=== PATIENT | male | born 1945 | race Caucasian/White ===

== ENCOUNTER 2017-03-06 12:04 | Day surgery (SDC) | payer BC ==
[~2017-03-06 12:04] MED LIST: Buffered Lidocaine 0.9% SYRIN* 5 ML/SYR SYRINGE INTRADERM ONE; Famotidine IV* 10 MG/ML 2 ML (20 mg) IV ONE
[2017-03-06] MEDS ORDERED: Buffered Lidocaine 0.9% SYRIN* 5 ML/SYR SYRINGE ONE (12:23)
[2017-03-06] MEDS ORDERED: Naloxone* 0.4 MG/ML 1 ML VIAL IV PRN (12:52)
[2017-03-06] MEDS ORDERED: fentaNYL* 50 MCG/ML 2 ML VIAL (100 MCG VIAL) ONE (13:54)
[2017-03-06] MEDS ORDERED: Lidocaine 2% PF * 5 ML VIAL ONE (14:08)
[2017-03-06] MEDS ORDERED: Propofol* 10 MG/ML 20 ML BTL IV PUSH ONE ×2 (14:08→14:21)
[2017-03-06 15:34] VITALS: BP 135/62
--- NOTE | 2017-03-07 01:34 | PRO ---
CC: Dr. De La Paz * DATE OF PROCEDURE: 03/06/17 - [facility] PROCEDURE PERFORMED: Colonoscopy to cecal base. SURGEON: Dr. Jenna Calix. ANESTHESIA: MAC HISTORY OF PRESENT ILLNESS: Blaine is a pleasant 71-year-old male who presents today for a surveillance colonoscopy due to personal history of colon polyps last seen on colonoscopy in 2013 and family history of colon cancer. His father was diagnosed with colon cancer at the age of 61. He currently denies any gastrointestinal complaints. PRE-OP DIAGNOSES: 1. Personal history of tubular adenomatous polyps. 2. Family history of colon cancer. 3. Surveillance colonoscopy. POST-OP DIAGNOSES: 1. Large-mouthed sigmoid diverticulosis. 2. 2 mm sessile ascending colon polyp with polypectomy. 3. Two 3 mm sessile hepatic flexure polyps with polypectomy. 4. 8 mm sessile sigmoid polyp with hot snare polypectomy. 5. 4 mm sessile descending colon polyp with polypectomy. 6. Fair colonoscopy preparation, polyps less than 5 mm may have been missed on this examination. RECOMMENDATIONS: 1. Timing of repeat colonoscopy will be determined upon review of biopsy results. DESCRIPTION OF PROCEDURE: Colonoscopy was explained in detail to the patient. The risks, benefits, complications, alternatives, and possibilities of missed lesions were explained and understood. Complications included, but were not limited to reaction to anesthesia, aspiration, increased risk of bleeding and perforation. All questions were answered. The patient demonstrated understanding of the conversation, informed consent was obtained. Next, the patient was brought to roll form operator room where blood pressure, oxygen, and blood pressure monitors were applied. The patient was found to be a fit candidate for moderate anesthesia care after adequate IV sedation was achieved. A digital rectal exam was performed, which revealed a normal sphincterotome. No palpable masses were appreciated. Next, a standard adult Olympus colonoscope was inserted through the rectum, maneuvered all the way to the cecal base where the ileocecal valve and appendical orifice were identified and photographed. Next, the colonoscope was withdrawn in a fashion that allowed adequate visualization of bowel. The patient overall had a fair colonoscopy preparation. Aggressive irrigation and suctioning was performed in order to adequately visualize the mucosa. The patient's colon had normal vasculature and mucosal patterns. The cecum was normal appearing. Entry into the ascending colon revealed 2 mm sessile polyp, it was removed via jumbo cold forceps. Hemostasis was seen. Further withdrawal into the hepatic flexure revealed two 3 mm sessile polyps. These were also removed via jumbo cold forceps. Further withdrawal into the descending colon revealed a 4 mm sessile polyp. This was also removed via jumbo cold forceps. Hemostasis was seen at polypectomy site. Withdrawal into the sigmoid colon revealed an 8 mm sessile polyp. This was removed via hot snare. Hemostasis was seen at polypectomy site. Entry further into the sigmoid revealed large mouthed diverticula throughout. The rectum was normal appearing. On retroflexion, there were no gross abnormalities noted. Air was then removed from the patient. Colonoscope was removed from the patient. The patient tolerated the procedure well. There were no immediate complications. 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 Thank you, Dr. De La Paz, for allowing us to participate in the care of your patient. If you should have any further questions or concern, please do not hesitate to contact us. [id number]/[facility] #: [id number] NIDHI
== END 2017-03-06 15:54 | disposition home or self-care (01) ==
LOC: OR 12:04
PROVIDERS: ATTEND Internal Medicine Gastroenterology
DX: D12.2 Benign neoplasm of ascending colon (principal); D12.4 Benign neoplasm of descending colon; D12.5 Benign neoplasm of sigmoid colon; I25.10 Atherosclerotic heart disease of native coronary artery without angina pectoris; E66.9 Obesity, unspecified; Z86.010 Personal history of colon polyps; Z85.038 Personal history of other malignant neoplasm of large intestine; Z95.1 Presence of aortocoronary bypass graft
CPT/HCPCS: 88305; J2704; J3010

== ENCOUNTER 2018-11-02 05:07 | Emergency (ER) | payer MEDICARE, BC ==
--- OUTSIDE RECORDS SUMMARY | 2018-11-02 05:20 | XMS REPORT | Continuity of Care Document ---
:1945 External Reference #:[id number] Author Name Lis Lozada M.D. Address [address] [place] [address] Care Team Providers Name Role Phone [facility] - Cardiovascular Care Team Information Call Worker Disease Jesús De La Paz - Family Medicine Care Team Information Call Worker [phone] Vicente Pratt - Cardiovascular Disease Care Team Information Call Worker [phone] Problems Active Problems Provider Date Benign essential hypertension Jesús De La Paz M.D. Onset: 08/09/2005 Hyperlipidemia Jesús De La Paz M.D. Onset: 08/09/2005 Type 2 diabetes mellitus Jesús De La Paz M.D. Onset: 08/09/2005 Sleep apnea Jesús De La Paz M.D. Onset: 08/09/2005 Obesity Jesús De La Paz M.D. Onset: 01/08/2008 Benign prostatic hypertrophy without outflow Jesús De La Paz M.D. Onset: 06/2010 obstruction Arthralgia of the lower leg Jesús De La Paz M.D. Onset: 03/16/2011 Adult health examination Jesús De La Paz M.D. Onset: 05/26/2013 Chest pain Jesús De La Paz M.D. Onset: 05/26/2013 Arthralgia of the ankle and/or foot Jesús De La Paz M.D. Onset: 09/08/2013 Essential hypertension Jesús De La Paz M.D. Onset: 01/04/2015 Acute upper respiratory infection, Jesús De La Paz M.D. Onset: 01/04/2015 unspecified Malaise and fatigue Jesús De La Paz M.D. Onset: 05/09/2015 Hypermature cataract Jesús De La Paz M.D. 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 Onset: 07/04/2015 Liver function tests abnormal Jesús De La Paz M.D. Onset: 03/12/2016 Lyme disease Stu Rosado M.D. Onset: 04/11/2016 Nonvenomous insect bite of trunk without Stu Rosado M.D. Onset: 2016 infection Low back pain Jesús De La Paz M.D. Onset: 11/15/2017 Other hyperlipidemia Jesús De La Paz M.D. Onset: 03/17/2018 Epigastric pain Jesús De La Paz M.D. Onset: 07/11/2018 Social History Type Date Description Comments Sex Unknown Tobacco Use Start: Unknown Nonsmoker ETOH Use Social Alcohol Tobacco Use Start: Unknown Patient has never smoked Allergies, Adverse Reactions, Alerts Active Allergies Reaction Severity Comments Date NKDA 10/26/2010 Pollen 12/15/2009 Dust 12/15/2009 Medications Active Medications SIG Qnty Indications Ordering Date Provider Omeprazole 1 by mouth 30caps R10.13 Jesús Clinton 07/11/[address] every morning Melanie De La Paz for stomach as Needed Meloxicam 1 by mouth 60tabs M54.5 Raj Clinton 07/22/2017 7.5mg Tablets twice a day jonah Sawant MD Amlodipine Besylate 1 by mouth 90tabs Jesús Clinton 03/25/2017 5mg Tablets every day Melanie De La Paz Potassium Chloride Lenore ER 1 by mouth 30tabs Jesús Clinton 03/25/2017 20Meq every day Melanie De La Paz Tablets ER Hydrochlorothiazide 1 by mouth 90caps I10 Jesús Clinton 03/25/2017 12.5mg every day Melanie De La Paz Capsules Allopurinol Take 1 Tablet 30tabs M10.00 Jesús Clinton 07/04/2015 300mg Tablets By Mouth Every Janie De La PazLaura Day Glipizide ER Take 1 Tablet 90tabs Jesús T. 01/03/2009 5mg Tablets ER 24HR By Mouth Every Ana Cristina MLauraDLaura Morning For Diabetes Aspirin 1 po qd 90tabs Unknown 81mg Tablets DR Chen 1 po qd prn Unknown 10mg Tablets Metoprolol Succinate ER 1 by mouth bid Unknown 75mg Tablets ER 24HR Lisinopril 2 po qam, 1 po Unknown 20mg Tablets qhs Crestor 1 by mouth Unknown 20mg Tablets every day Metformin HCL Take 1 Tablet 180tabs Jesús T. 1000mg Tablets By Mouth Two Melanie De La Paz Times Daily Immunizations CPT Code Status Date Vaccine Reaction Lot # [id number] Given 11/20/2017 High-Dose, Influenza Virus Vacccine-fluzone 65 and older [id number] Given 11/15/2017 Pneumococcal Immunization [id number] 61699 Given 11/19/2016 Influenza Vac, Quadrivalent, [id number] [address] Given 03/12/2016 Pneumococcal Conjugate Vacc-13 [id number] 23828 Given 03/01/2011 DO Not Use Split Influenza Virus no reaction noted [id number] Vaccine 23443 Given 11/29/2000 DO Not Use Split Influenza Virus Vaccine Vital Signs Date Vital Result Comment 10/16/2018 3:44pm BP Systolic 156 mmHg BP Diastolic 86 mmHg Heart Rate 68 /min Body Temperature 97.3 F Height 70 inches 5'10" Weight 369.00 lb BMI (Body Mass Index) 52.9 kg/m2 07/11/2018 9:13am BP Systolic 146 mmHg BP Diastolic 80 mmHg Heart Rate 60 /min Body Temperature 97.9 F Respiratory Rate 18 /min Height 70 inches 5'10" Weight 374.12 lb BMI (Body Mass Index) 53.7 kg/m2 Results Test Date Facility Test Result H/L Range Note Laboratory test 07/11/2018 [facility] Hemoglobin A1c 6.6 % High 4.1- 5.7 finding (607)- - (Fma) Procedures Date Code Description Status 12/21/2017 496060743 Diabetic Retinal Eye Exam Completed 03/06/2017 [id number] Colonoscopy Completed 02/22/2017 [id number] Colonoscopy Completed 04/22/2013 [id number] Colonoscopy Completed Medical Devices Description No Information Available Encounters Type Date Location Provider Dx Diagnosis Office Visit 07/11/2018 Main Office Jesús De La Paz, I10 Essential (primary ) 9:20a M.DLaura hypertension E11.9 Type 2 diabetes mellitus without complications I25.10 Athscl heart disease of [place] coronary artery w/o ang pctrs E78.49 Other hyperlipidemia R10.13 Epigastric pain Assessments Date Code Description Provider 10/16/2018 R10.13 Epigastric pain Lis Lozada M.D. 10/16/2018 M25.561 Pain in right knee Lis Lozada M.D. 07/11/2018 I10 Essential (primary) hypertension Jesús De La Paz M.D. 07/11/2018 E11.9 Type 2 diabetes mellitus without Jesús De La Paz M.D. complications 07/11/2018 I25.10 Atherosclerotic heart disease of [place] Jesús De La Paz M.D. coronary artery with 07/11/2018 E78.49 Other hyperlipidemia Jesús De La Paz M.D. 07/11/2018 R10.13 Epigastric pain Jesús De La Paz M.D. Plan of Treatment Future Appointment(s):11/25/2018 8:20 am - Jesús De La Paz M.D. at Main Npwvfl7010/16/2018 - Lis Lozada M.D.R10.13 Epigastric painComments:refer to GI for endoscopy continue the omeprazole.M25.561 Pain in right kneeComments: refer to ortho.AllComments:Medication Management Patient Understands medications he's taking? Yes No Are there Barriersto Adherence? Yes No Has the patient been asked about herbal supplements and therapies, and OTC meds? Yes No Functional Status Description No Information Available Mental Status Description No Information Available Referrals Description No Information Available
--- OUTSIDE RECORDS SUMMARY | 2018-11-02 05:20 | XMS REPORT | Continuity of Care Document ---
:1945 External Reference #:[id number] Author Name Anam Watters M.D. (transmitted by agent of provider Yaa Whitmore) Address [address] [place] [address] Care Team Providers Name Role Phone Jesús eD La Paz MD - Family Medicine Care Team Information [place] [phone] Kaylene Rg MD - Internal Medicine Care Team Information [place] Problems Active Problems Provider Date Obesity Vicente Pratt M.D., [facility] Onset: 02/01/2016 Atherosclerotic heart disease of Vicente Pratt M.D., [facility] Onset: 2015 [place] coronary artery without angina pectoris Chronic ischemic heart disease Vicente Pratt M.D., [facility] Onset: 2015 Essential hypertension Vicente Pratt M.D., [facility] Onset: 06/22/2015 Hyperlipidemia Vicente Pratt M.D., [facility] Onset: 06/22/2015 Type 2 diabetes mellitus Vicente Pratt M.D., [facility] Onset: 06/22/[address] segment elevation myocardial Vicente Pratt M.D., [facility] Onset: 06/22/2015 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 Social History Type Date Description Comments Sex Unknown ETOH Use Drinks Alcoholic once or twice a Beverages Rarely month Tobacco Use Start: Unknown Patient has never smoked Recreational Drug Use Denies Drug Use Smoking Status Reviewed: 10/27/18 Patient has never smoked Exercise Type/Frequency Exercises regularly pt primarily focuses on walking Allergies, Adverse Reactions, Alerts Active Allergies Reaction Severity Comments Date NKDA 06/22/2015 Pollen 01/28/2017 Dust Mites 01/28/2017 Medications Active Medications SIG Qnty Indications Ordering Date Provider Hydrochlorothiazide 1 by mouth Unknown 03/06/2018 12.5mg every day Capsules Amlodipine Besylate 1 by mouth 90tabs Vicente Pratt, 10/21/2015 5mg Tablets every day M.D., [facility], [facility] Potassium Chloride ER 1 tab by mouth 90tabs Vicente Pratt, 07/19/2015 20Meq every day M.D., [facility], Tablets ER [facility] Lisinopril 2 tabs in in 270tabs Brittany Lara, 07/01/2015 20mg Tablets the morning , M.D. one tab in at night by mouth Metoprolol Succinate ER take 1 and 1/2 270tabs Brittany Lara, 50mg tabs by mouth M.D. Tablets ER 24HR twice a day Metformin HCL 1 by mouth Unknown 1000mg Tablets twice a day Glipizide XL 1 by mouth Unknown 5mg Tablets ER 24HR every day Loratadine 1 by mouth Unknown 10mg Tablets every day prn Aspirin Ec 1 by mouth Unknown 81mg Tablets DR every day Crestor 1 by mouth 90tabs Vicente Pratt, 20mg Tablets every day M.D., [facility], [facility] Allopurinol 1 by mouth Unknown 300mg Tablets every day Meloxicam take one tab Unknown 7.5mg Tablets twice daily as needed for pain, avoid other nsaids Omeprazole 1 by mouth Unknown 20mg Capsules DR every day Immunizations Description No Information Available Vital Signs Date Vital Result Comment 10/27/2018 1:57pm Height 70 inches 5'10" Weight 361.00 lb Heart Rate 64 /min BP Systolic 130 mmHg BP Diastolic 50 mmHg Respiratory Rate 14 /min Pain Level 4 BMI (Body Mass Index) 51.8 kg/m2 03/07/2018 8:16am Height 70 inches 5'10" Weight 384.00 lb Heart Rate 58 /min BP Systolic Sitting 122 mmHg BP Diastolic Sitting 80 mmHg BMI (Body Mass Index) 55.1 kg/m2 Ejection Fraction 45-50% echo 08/03/15 Results Description No Information Available Procedures Date Code Description Status 10/27/2018 42816 Inject/Drain Joint/Bursa Major W/O US Completed Medical Devices Description No Information Available Encounters Description No Information Available Assessments Date Code Description Provider 10/27/2018 M17.11 Unilateral primary osteoarthritis, right knee Anam Watters M.D. Plan of Treatment 10/27/2018 - Anam Watters M.D.M17.11 Unilateral primary osteoarthritis, right kneeNew Therapy:Physical TherapyFollow up:Follow up: As needed OK to try brace, cane, exercises Functional Status Description No Information Available Mental Status Description No Information Available Referrals Description No Information Available
--- NOTE | 2018-11-02 05:41 | ED ---
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 The pain was much worse than usual last night. He rates his pain severity a 10/10. He notes that the pain is much worse when lying down at night, deep breathing, and coughing. No alleviating factors noted. He also reports some constipation but denies any fever, vomiting, nausea, or diarrhea. Home Medications Medication Instructions Recorded Confirmed Type glipiZIDE TAB.XL* [Glucotrol Xl*] 5 mg PO QAM 04/20/13 11/02/18 History metFORMIN* [Glucophage 500 MG TAB 1,000 mg PO BID 04/20/13 11/02/18 History *] LoraTADine TAB(NF) [Claritin 10 MG 10 mg PO DAILY PRN 06/17/13 11/02/18 History TAB(NF)] Aspirin EC TAB* [Ecotrin EC Low 81 mg PO QAM 06/15/15 11/02/18 History Dose 81 MG*] Allopurinol TAB* [Zyloprim TAB*] 300 mg PO QPM 11/10/15 11/02/18 History Metoprolol Succinate XL TAB* 75 mg PO BID 11/10/15 11/02/18 History [Toprol XL TAB*] Potassium Chloride [K-Tab] 20 meq PO QAM 11/10/15 11/02/18 History amLODIPine TAB* [Norvasc TAB*] 5 mg PO QAM 11/10/15 11/02/18 History Lisinopril TAB* [Prinivil TAB 5 20 - 40 mg PO SEE INSTRUCTIONS 12/25/16 History MG*] Rosuvastatin Calcium [Crestor] 20 mg PO QAM 12/27/16 11/02/18 History Hydrochlorothiazide TAB* 12.5 mg PO DAILY 11/02/18 11/02/18 History Omeprazole 20 mg PO DAILY 11/02/18 11/02/18 History - History of Current Complaint Chief Complaint: EDAbdPain Stated Complaint: ABD PAIN PER PT Time Seen by Provider: 11/02/18 05:36 Hx Obtained From: Patient Onset/Duration: Sudden Onset, Lasting Weeks, Still Present Timing: Constant, Lasting Weeks Severity Initially: Severe Severity Currently: Severe Pain Intensity: 10 Location: Discrete At: RUQ, Discrete At: LLQ Character: Sharp Aggravating Factor(s): Deep Breaths, Other: - coughing, lying down Alleviating Factor(s): Nothing Associated Signs And Symptoms: Positive: Constipation. Negative: Fever, Nausea , Vomiting, Diarrhea - Allergies/Home Medications Allergies/Adverse Reactions: Allergies Allergy/AdvReac Type Severity Reaction Status Date / Time No Known Allergies Allergy Verified 11/02/18 05:27 Home Medications: Home Medications Hydrochlorothiazide TAB* 12.5 mg PO DAILY 11/02/18 [History Confirmed 11/02/18] Omeprazole 20 mg PO DAILY 11/02/18 [History Confirmed 11/02/18] PMH/Surg Hx/FS Hx/Imm Hx Endocrine/Hematology History: Reports: Hx Diabetes - type 2 Cardiovascular History: Reports: Hx Angina, Hx Congestive Heart Failure, Hx Hypercholesterolemia, Hx Hypertension, Other Cardiovascular Problems/Disorders - DR. PHOEN[place] FOLLOWS PATIENT Denies: Hx Coronary Artery Disease, Hx Myocardial Infarction, Hx Pacemaker/ ICD, Hx Valvular Heart Disease Respiratory History: Reports: Hx Asthma, Hx Pneumonia, Hx Seasonal Allergies, Hx Sleep Apnea Denies: Hx Chronic Obstructive Pulmonary Disease (COPD) GI History: Reports: Hx Jaundice - A TEEN, Other GI Disorders - OCCASIONAL SLIGHTLY ELEVATEDLIVER ENZYMES Musculoskeletal History: Reports: Hx Arthritis - LEFT KNEE, LEFT SHOULDER, Hx Back Problems, Hx Tendonitis - RIGHT ELBOW, LEFT SHOULDER, Other Musculoskeletal History - has gout- no attack in over 1 year Sensory History: Reports: Hx Cataracts, Hx Contacts or Glasses - glasses Denies: Hx Hearing Aid, Hx Hearing Problem, Other Sensory Impairments Opthamlomology History: Reports: Hx Cataracts, Hx Contacts or Glasses - glasses Denies: Other Sensory Impairments Neurological History: Reports: Hx Headaches - Surgical History Surgery Procedure, Year, and Place: appi-2006. bilat cataracts with IOL 2015. cardiac stent after stemi 2016. papilomas removed from eyelid both 2015 approx Hx Anesthesia Reactions: No Infectious Disease History: No Infectious Disease History: Denies: Traveled Outside the [place] in Last 30 Days - Family History Known Family History: Positive: None - reviewed & noncontributory - Social History Alcohol Use: Rare Hx Substance Use: No Substance Use Type: Reports: None Hx Tobacco Use: No Smoking Status (MU): Never Smoked Tobacco Have You Smoked in the Last Year: No Review of Systems Negative: Fever Positive: Abdominal Pain, Other - pos - constipation . Negative: Vomiting, Diarrhea, Nausea All Other Systems Reviewed And Are Negative: Yes Physical Exam - Summary Physical Exam Summary: General: Well-developed, Well-nourished male. Morbidly obese. No acute distress. HEENT: Normocephalic, Atraumatic. Eyes: Conjuctiva normal, PERRL. Ears: TMs within normal limits. Nares: (-) discharge, (-) erythema. Oropharynx: Clear, mucous membranes moist, (-) exudates. Neck: Soft, FROM, (-) lymphadenopathy, (-) thyromegaly, (-) JVD. Cardiovascular: Normal sinus rhythm, (-) murmur. Lungs: Clear to auscultation bilaterally (-) wheezes, (-) rales, (-) rhonchi. Abdomen: Soft, mild tenderness in the LUQ and right lateral abd, non-distended, (-) organomegaly, normal bowel sounds. Back: (-) CVA tenderness Extremities: No edema. Skin: Warm, dry, (-) rash. Neuro: Alert and oriented x3, no focal deficits. Psychiatric: Mood normal, affect normal. Triage Information Reviewed: Yes Vital Signs On Initial Exam: Initial Vitals Temp Pulse Resp BP Pulse Ox 97.6 F 68 18 194/107 96 11/02/18 05:08 11/02/18 05:08 11/02/18 05:08 11/02/18 05:08 11/02/18 05:08 Vital Signs Reviewed: Yes Diagnostics - Vital Signs Vital Signs Temp Pulse Resp BP Pulse Ox 11/02/18 05:08 97.6 F 68 18 194/107 96 - Laboratory Result Diagrams: 11/02/18 06:13 11/02/18 06:13 Lab Statement: Any lab studies that have been ordered have been reviewed, and results considered in the medical decision making process. 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 Test results normal except for WBC 18.7, MPV 10.6, Absolute Neuts 14.9, Absolute monos 1.0. Final Dx is abdominal pain. Pt will be a sign out to Dr. Urbina pending CT A/P and disposition. - Diagnoses Provider Diagnoses: Abdominal pain Discharge ED - Sign-Out/Discharge Documenting (check all that apply): Sign-Out Patient Signing out patient TO: Arvind Urbina Patient Received Moderate/Deep Sedation with Procedure: No - Discharge Plan Referrals: Jesús De La Paz MD [Primary Care Provider] - - Attestation Statements Document Initiated by Scribe: Yes Documenting Scribe: Lito Nobles Provider For Whom Scribe is Documenting (Include Credential): Loly Welch MD Scribe Attestation: ILito, scribed for Loly Welch MD on 11/02/18 at 0643. Scribe Documentation Reviewed: Yes Provider Attestation: The documentation as recorded by the scribeLito accurately reflects the service I personally performed and the decisions made by me, Loly Welch MD Status of Scribe Document: Viewed
[2018-11-02 06:29] LABS: ABS Basophils 0.1 10^3/ul (0-0.2); ABS Eosinophils 0.4 10^3/ul (0-0.6); ABS Lymphocytes 2.3 10^3/ul (1.0-4.8); ABS Neutrophils 14.9 10^3/ul (1.5-7.7); Eosinophil % 2.3 %; Hematocrit 43 % (42-52); Hemoglobin 14.4 g/dL (14.0-18.0); Lymphocyte % 12.3 %; Mean Corpuscular HGB Conc 34 g/dL (31-36); Mean Corpuscular Hemoglobin 30 pg (27-31); Mean Corpuscular Volume 91 fL (80-94); Mean Platelet Volume 10.6 fL (7.4-10.4); Platelet Count 247 10^3/uL (150-450); Red Blood Count 4.77 10^6 /uL (4.18-5.48); Red Cell Distribution Width 15 % (10-15); White Blood Count 18.7 10^3/uL (3.5-10.8)
[2018-11-02 06:41] LABS: Albumin 3.9 g/dL (3.2-5.2); Albumin/Globulin Ratio 1.3 (1-3); BUN/Creatinine Ratio 15.8 (8-20); EGFR African American 88.1 (>60); EGFR Non-African American 72.8 (>60); Potassium 4.2 mmol/L (3.5-5.0); Total Bilirubin 0.4 mg/dL (0.2-1.0); Total Protein 6.9 g/dL (6.4-8.9)
--- NOTE | 2018-11-02 07:16 | ED ---
Progress - Progress Note Progress Note: This pt is a sign out to Dr. Urbina from Dr. Welch at shift change 0700 11/[address] A/P and dispo. - Results/Orders Results/Orders: His CT A/P Shows the followin. Innumerable focal liver lesions and extensive retroperitoneal lymphadenopathy new compared with the 2008 exam highly suspicious for metastatic disease of unknown primary. 2. Consider ultrasound-guided fine-needle aspiration of a medical sales representative hepatic lesion for pathologic assessment. ED physician has reviewed this report. Re-Evaluation - Re-Evaluation First Eval Re-Evaluation Time: 09:31 Change: Improved Comment: Patient informed of CT scan results concerning for metastatic lesions. Patient to follow-up with oncologist tomorrow. Patient given 1 Percocet for pain here and can take Tylenol at home. Patient agreeable with discharge plan. Course/Dx - Course Course Of Treatment: This pt is a sign out to Dr. Urbina from Dr. Welch at shift change 0700 11/02/[address] A/P and dispo. - Diagnoses Provider Diagnoses: Abdominal pain, Lesion of liver - Provider Notifications Discussed Care Of Patient With: Aiden Ramirez Time Discussed With Above Provider: 09:30 Instructed by Provider To: Other - Dr. Arriaga, Oncology, stated that he will call the pt and set up an appointment for tomorrow. Discharge ED - Sign-Out/Discharge Documenting (check all that apply): Patient Departure - discharged Patient Received Moderate/Deep Sedation with Procedure: No - Discharge Plan Condition: Stable Disposition: HOME Patient Education Materials: Abdominal Pain (ED) Referrals: Jesús De La Paz MD [Primary Care Provider] - 2 Days Aiden Ramirez MD [Medical Doctor] - As Soon As Possible Additional Instructions: You were seen in the emergency department for abdominal pain. Your CT scan showed lesions on your liver and enlarged lymph nodes. The source is unclear, sometimes this can be seen with cancer. Please follow up with our oncologist, Dr. Ramirez. Please follow up with your primary care doctor in next 2-3 days and return to emergency department for worsening or concerning symptoms. It was a pleasure taking care of you today. - Billing Disposition and Condition Condition: STABLE Disposition: Home - Attestation Statements Document Initiated by Scribe: Yes Documenting Scribe: Tano Valiente Provider For Whom Scribe is Documenting (Include Credential): Arvind Urbina MD Scribe Attestation: I, Tano Valiente, scribed for Arvind Urbina MD on 11/02/18 at 0947. Scribe Documentation Reviewed: Yes Provider Attestation: The documentation as recorded by the scribTano lares accurately reflects the service I personally performed and the decisions made by , Arvind Urbina MD Status of Scribe Document: Viewed
[2018-11-02] MEDS ORDERED: Iodixanol* (CONTRAST) 320 MG/ML 100 ML SDV IV ONE (07:40)
[2018-11-02] MEDS ORDERED: oxyCODONE/Acetamin 5/325 MG* TAB PO ONE (09:33)
[2018-11-02 10:26] VITALS: BP 163/97
== END 2018-11-02 09:40 | disposition home or self-care (01) ==
LOC: ED 05:07
DX: R10.9 Unspecified abdominal pain (principal); K76.9 Liver disease, unspecified; E11.9 Type 2 diabetes mellitus without complications; I11.0 Hypertensive heart disease with heart failure; I50.9 Heart failure, unspecified; E78.00 Pure hypercholesterolemia, unspecified; J45.909 Unspecified asthma, uncomplicated; Z79.82 Long term (current) use of aspirin; Z79.84 Long term (current) use of oral hypoglycemic drugs; Z79.899 Other long term (current) drug therapy
CPT/HCPCS: 36415; 74177; 80053; 83605; 83690; 85025; 99284; A9270-GY; Q9967

== ENCOUNTER → 2018-11-19 | Day surgery (SDC) | payer MEDICARE, BC ==
[~2018-11-19] MED LIST changes: -Buffered Lidocaine 0.9% SYRIN* 5 ML/SYR SYRINGE INTRADERM ONE; +Buffered Lidocaine 1% SYRIN* 1 ML/SYRINGE INTRADERM ONE; -Famotidine IV* 10 MG/ML 2 ML (20 mg) IV ONE; +Lactated Ringers 1000 ML Bag* 1,000 ML IV SCH; +Midazolam* 1 MG/ML 5 ML VIAL (5 MG) ONE; +Propofol* 10 MG/ML 20 ML BTL ONE; +fentaNYL* 50 MCG/ML 2 ML VIAL (100 MCG VIAL) ONE
[2018-11-19 16:34] VITALS: BP 133/60
--- NOTE | 2018-11-21 23:45 | PRO ---
CC: Dr. De La Paz; Dr. Ramirez * DATE OF PROCEDURE: 11/19/18 - ENDO PROCEDURE: EGD with biopsy. REFERRING PROVIDERS: Dr. De La Paz and Dr. Ramirez. INDICATION: The patient was seen in clinic recently. He was noted to have left upper abdominal discomfort. Workup revealed innumerable liver lesions and extensive retroperitoneal lymphadenopathy. Findings consistent with metastatic disease of unknown primary. Liver biopsy results pending. MEDICATIONS GIVEN: By Anesthesia. DESCRIPTION OF PROCEDURE: Full disclosure of risks was reviewed with the patient as detailed on the consent form. The patient was placed in the left lateral decubitus position and monitored with continuous pulse oximetry, capnography, interval blood pressure monitoring, and direct observation. A bite -block was placed between the patient's teeth. An adult gastroscope was then inserted into the patient's mouth and advanced down the esophagus, into the stomach, and into the distal duodenum. Findings and interventions are described below. FINDINGS: Esophagus was a tubular structure. In the distal esophagus, from approximately 41 to 44 cm, there was an esophageal mass. This mass involved one- third to one-half of the circumference of the esophagus. This mass appeared to directly abut the GE junction. Multiple biopsies were obtained for histologic evaluation. The scope was able to advance into the stomach without any significant resistance. The gastric mucosa was examined in the forward and retroflex views. There was mild erythema in the gastric antrum. No erosions or ulcers. The scope was then advanced into the duodenum to at least the third portion. Duodenal mucosa was unremarkable in appearance. The scope was then withdrawn from the patient. The patient tolerated the procedure well and was recovered in the GI recovery area. IMPRESSION: 1. Complete upper endoscopy to the distal duodenum. 2. Distal esophageal mass. Findings consistent with an esophageal cancer. I suspect that this is the source of the metastatic disease. FOLLOWUP: 1. Await pathology. 2. The patient is scheduled to follow up with Dr. Ramirez on Saturday late afternoon. Thank you very much for this referral. [id number]/[facility] #: [id number] [facility], [place]
--- NOTE | 2018-11-22 00:11 | PRO ---
CC: Dr. De La Paz; Dr. Ramirez. * DATE OF PROCEDURE: 11/19/18 - ENDO REFERRING PROVIDERS: Dr. De La Paz and Dr. Ramirez. PROCEDURE: Colonoscopy with cold snare polypectomy x2. INDICATION: The patient recently developed left upper abdominal discomfort. Workup demonstrated enumerable liver lesions and retroperitoneal lymphadenopathy. Findings concerning for metastatic disease of unknown primary. Plan had been for both an upper and lower endoscopy to evaluate for primary source. EGD today demonstrated an esophageal mass. Last colonoscopy was in February 2017. This demonstrated 5 polyps. There was a tubulovillous adenoma, tubular adenoma, and hyperplastic polyps. . MEDICATIONS GIVEN: By Anesthesia. DESCRIPTION OF PROCEDURE: Full disclosure of risks was reviewed with the patient as detailed on the consent form. The patient was placed in the left lateral decubitus position and monitored with continuous pulse oximetry, capnography, interval blood pressure monitoring, and direct observation. After anorectal examination was performed, the adult colonoscope was inserted into the rectum and slowly advanced forward to the level of the cecum. Quality of the prep was fair. Photodocumentation of landmarks obtained. Careful inspection was made as the colonoscope was withdrawn. Retroflexion was performed in the rectum. Findings and interventions are described below. FINDINGS: Anorectal exam was unremarkable. The scope was inserted into the rectum and slowly advanced forward. The procedure was moderately challenging with some looping of colonoscope. Due to the patient's body habitus, abdominal pressure was only modestly successful. The scope was able to reach the cecum. Cecal views were moderately limited due to dark liquid with residual sediment. The scope was slowly withdrawn throughout the length of colon. There was 5 mm polyp at the hepatic flexure removed with cold snare. There was a 4 mm polyp in the transverse colon removed with cold snare. There was sigmoid diverticulosis of moderate severity. Retroflexion in the rectum revealed medium- sized internal hemorrhoids and hypertrophied anal papilla. The scope was then withdrawn from the patient. The patient tolerated the procedure well and was recovered in the GI recovery area. IMPRESSION: 1. Complete colonoscopy to the cecum. Fair to borderline prep. 2. Two small polyps removed as above. 3. Sigmoid diverticulosis. 4. Internal hemorrhoids. FOLLOWUP: 1. Await pathology. 2. Timing of repeat colonoscopy to depend on the patient's overall health. Unfortunately, he has been recently diagnosed with what appears to be metastatic esophageal cancer. We will defer plans regarding future colonoscopy for now. 3. Recommend high fiber diet given the diverticulosis. 4. Recommend conservative management for the hemorrhoids. The patient will contact the clinic if these become symptomatic for him. Thank you very much for this referral. [id number]/[facility] #: [id number] NID[facility]
== END | disposition home or self-care (01) ==
LOC: ENDO 12:44
PROVIDERS: ATTEND Internal Medicine Gastroenterology
DX: D12.3 Benign neoplasm of transverse colon (principal); C15.9 Malignant neoplasm of esophagus, unspecified; R63.4 Abnormal weight loss; R10.84 Generalized abdominal pain; E11.9 Type 2 diabetes mellitus without complications; I10 Essential (primary) hypertension; K57.30 Diverticulosis of large intestine without perforation or abscess without bleeding; K64.8 Other hemorrhoids; K62.89 Other specified diseases of anus and rectum; E66.01 Morbid (severe) obesity due to excess calories; K31.89 Other diseases of stomach and duodenum; R93.2 Abnormal findings on diagnostic imaging of liver and biliary tract; Z86.010 Personal history of colon polyps; Z80.0 Family history of malignant neoplasm of digestive organs; Z95.5 Presence of coronary angioplasty implant and graft; Z91.09 Other allergy status, other than to drugs and biological substances; Z68.43 Body mass index [BMI] 50.0-59.9, adult; Z79.82 Long term (current) use of aspirin; Z79.84 Long term (current) use of oral hypoglycemic drugs; Z79.899 Other long term (current) drug therapy
CPT/HCPCS: 88305; 88313; 88341; 88342; 88360; J2250; J2704; J3010

== ENCOUNTER 2018-12-02 09:06 | Inpatient (IN) | payer MEDICARE, BC ==
[2018-12-02] MEDS ORDERED: NS 0.9% 1000 ML** 1,000 ML IV ONE (09:39)
[2018-12-02 09:53] LABS: Hematocrit 43 % (42-52); Hemoglobin 13.8 g/dL (14.0-18.0); Mean Corpuscular HGB Conc 32 g/dL (31-36); Mean Corpuscular Hemoglobin 29 pg (27-31); Mean Corpuscular Volume 90 fL (80-94); Mean Platelet Volume 10.7 fL (7.4-10.4); Platelet Count 308 10^3/uL (150-450); Red Blood Count 4.74 10^6 /uL (4.18-5.48); Red Cell Distribution Width 16 % (10-15); White Blood Count 24.3 10^3/uL (3.5-10.8)
[2018-12-02] MEDS ORDERED: Iodixanol* (CONTRAST) 320 MG/ML 100 ML SDV IV ONE (10:08)
[2018-12-02 10:09] LABS: Albumin 3.5 g/dL (3.2-5.2); Albumin/Globulin Ratio 1.1 (1-3); BUN/Creatinine Ratio 27.8 (8-20); Calcium 10.8 mg/dL (8.6-10.3); EGFR African American 58.5 (>60); EGFR Non-African American 48.4 (>60); Globulin 3.3 g/dL (2-4); Potassium 4.6 mmol/L (3.5-5.0); Total Bilirubin 0.8 mg/dL (0.2-1.0); Total Protein 6.8 g/dL (6.4-8.9)
[2018-12-02 10:11] LABS: INR 1.21 (0.82-1.09)
[2018-12-02 10:13] LABS: Troponin I 0.08 ng/mL (<0.04)
[2018-12-02 10:18] LABS: Activated Partial Thrombo Time 33.6 seconds (26.0-38.0)
[2018-12-02 10:20] LABS: C Reactive Protein 87.71 mg/L (<8.01)
--- NOTE | 2018-12-02 10:39 | ED ---
HPI Chest Pain - HPI Summary HPI Summary: Pt is a 73 y/o M presenting to the ED with a chief complaint of chest pain. He states he came in this morning to have a PICC line placed for chemotherapy for recent diagnosis of esophageal CA with metastasis to the liver, but was sent over here due to chest pain and shortness of breath. He complains of chest pain and L-sided abd and back pain that is intermittent in severity and duration, as well as some cough. He also notes recent changes in medications, including stopping the Hydrochlorothiazide and Amlodipine, and increasing his Oxycontin dose to 20mg BID. - History of Current Complaint Chief Complaint: EDChestPainROMI Time Seen by Provider: 12/02/18 09:24 Hx Obtained From: Patient Onset/Duration: Started Hours Ago, Still Present Timing: Constant, Lasting Hours Initial Severity: Moderate Current Severity: Moderate Pain Intensity: 5 Pain Scale Used: 0-10 Numeric Chest Pain Location: Diffuse Chest Pain Radiates: No Aggravating Factor(s): Nothing Alleviating Factor(s): Nothing Associated Signs and Symptoms: Positive: Chest Pain, Shortness of Breath, Cough , Back Pain, Abdominal Pain, Other: - recent medication changes - Additional Pertinent History Primary Care Physician: [id number] - Allergy/Home Medications Allergies/Adverse Reactions: Allergies Allergy/AdvReac Type Severity Reaction Status Date / Time No Known Allergies Allergy Verified 11/19/18 13:04 Home Medications: Home Medications Lisinopril TAB* [Prinivil TAB*] 40 mg PO DAILY 12/02/18 [History Confirmed 12/02] Lisinopril [Prinivil TAB 20 mg] 20 mg PO BEDTIME 12/02/18 [History Confirmed ] Potassium Chloride 20 meq PO DAILY 12/02/18 [History Confirmed 12/02/18] PMH/Surg Hx/FS Hx/Imm Hx Previously Healthy: Yes Endocrine/Hematology History: Reports: Hx Diabetes - type 2 Cardiovascular History: Reports: Hx Angina, Hx Congestive Heart Failure, Hx Hypercholesterolemia, Hx Hypertension, Other Cardiovascular Problems/Disorders - DR. PHOENIX FOLLOWS PATIENT Denies: Hx Coronary Artery Disease, Hx Myocardial Infarction, Hx Pacemaker/ ICD, Hx Valvular Heart Disease Respiratory History: Reports: Hx Asthma, Hx Pneumonia, Hx Seasonal Allergies, Hx Sleep Apnea Denies: Hx Chronic Obstructive Pulmonary Disease (COPD), Other Respiratory Problems/Disorders GI History: Reports: Hx Jaundice - A TEEN, Other GI Disorders - OCCASIONAL SLIGHTLY ELEVATEDLIVER ENZYMES History: Denies: Hx Kidney Stones, Hx Renal Disease, Other Problems/Disorders Musculoskeletal History: Reports: Hx Arthritis - LEFT KNEE, LEFT SHOULDER, Hx Back Problems, Hx Tendonitis - RIGHT ELBOW, LEFT SHOULDER, Other Musculoskeletal History - has gout- no attack in over 1 year Sensory History: Reports: Hx Cataracts, Hx Contacts or Glasses - glasses Denies: Hx Hearing Aid, Hx Hearing Problem, Other Sensory Impairments Opthamlomology History: Reports: Hx Cataracts, Hx Contacts or Glasses - glasses Denies: Other Sensory Impairments Neurological History: Reports: Hx Headaches Denies: Other Neuro Impairments/Disorders - Cancer History Cancer Type, Location and Year: esophageal - Surgical History Surgery Procedure, Year, and Place: appy-2006. bilat cataracts with IOL 2015. cardiac stent after stemi 2015. papilomas removed from eyelid both 2014 approx Hx Anesthesia Reactions: No Infectious Disease History: No Infectious Disease History: Denies: Traveled Outside the [place] in Last 30 Days - Family History Known Family History: Negative: Cardiac Disease, Diabetes - Social History Alcohol Use: Rare Hx Substance Use: No Substance Use Type: Reports: None Hx Tobacco Use: No Smoking Status (MU): Never Smoked Tobacco Have You Smoked in the Last Year: No Review of Systems Positive: Chest Pain Positive: Shortness Of Breath, Cough Positive: Abdominal Pain Positive: Myalgia - back pain All Other Systems Reviewed And Are Negative: Yes Physical Exam - Summary Physical Exam Summary: VITAL SIGNS: Reviewed. Pt is hypotensive and tachycardic. GENERAL: Patient is a obese male who is lying comfortable in the stretcher and mentating well. Patient is not in any acute respiratory distress. HEAD AND FACE: No signs of trauma. No ecchymosis, hematomas or skull depressions. No sinus tenderness. EYES: PERRLA, EOMI x 2, No injected conjunctiva, no nystagmus. EARS: Hearing grossly intact. Ear canals and tympanic membranes are within normal limits. MOUTH: Oropharynx within normal limits. NECK: Supple, trachea is midline, no adenopathy, no JVD, no carotid bruit, no c- spine tenderness, neck with full ROM. CHEST: Symmetric, no tenderness at palpation. LUNGS: Decreased breath sounds. No wheezing or crackles. CVS: Tachycardic rate and regular rhythm, S1 and S2 present, no murmurs or gallops appreciated. ABDOMEN: Soft, non-tender. No signs of distention. No rebound, no guarding, and no masses palpated. Bowel sounds are normal. EXTREMITIES: FROM in all major joints, no edema, no cyanosis or clubbing. NEURO: Alert and oriented x 3. No acute neurological deficits. Speech is normal and follows commands. SKIN: Dry and warm. Triage Information Reviewed: Yes Vital Signs On Initial Exam: Initial Vitals Temp Pulse Resp BP Pulse Ox 97.9 F 106 30 83/57 93 12/02/18 09:14 12/02/18 09:14 12/02/18 09:14 12/02/18 09:14 12/02/18 09:14 Vital Signs Reviewed: Yes Procedures - Sedation Patient Received Moderate/Deep Sedation with Procedure: No Diagnostics - Vital Signs Vital Signs Temp Pulse Resp BP Pulse Ox 12/02/18 10:24 106 26 109/90 94 12/02/18 10:21 111 27 127/106 90 12/02/18 10:20 109 20 90 12/02/18 09:32 108 29 88/71 95 12/02/18 09:30 108 20 96 12/02/18 09:14 97.9 F 106 30 83/57 93 - Laboratory Lab Results: Lab Results 12/02/18 12/02/18 12/02/18 Range/Units 09:30 09:30 09:30 WBC 24.3 H (3.5-10.8) 10^3/uL RBC 4.74 (4.18-5.48) 10^6 /uL Hgb 13.8 L (14.0-18.0) g/dL Hct 43 (42-52) % MCV 90 (80-94) fL MCH 29 (27-31) pg MCHC 32 (31-36) g/dL RDW 16 H (10-15) % Plt Count 308 (150-450) 10^3/uL MPV 10.7 H (7.4-10.4) fL Neut % (Auto) Pending Lymph % (Auto) Pending Oliver % (Auto) Pending Eos % (Auto) Pending Baso % (Auto) Pending Absolute Neuts (auto) Pending Absolute Lymphs (auto) Pending Absolute Monos (auto) Pending Absolute Eos (auto) Pending Absolute Basos (auto) Pending Absolute Nucleated RBC Pending Nucleated RBC % Pending INR (Anticoag Therapy) 1.21 H (0.82-1.09) APTT (26.0-38.0) seconds Fibrinogen D-Dimer, Quantitative (Less Than 230) ng/mL Patient Temperature ABG pH (7.35-7.45) ABG pH (Temp Correct) ABG pCO2 (35-45) mmHg ABG pCO2 (Temp Corrct ABG pO2 (80-100) mmHg ABG pO2 (Temp Correct ABG HCO3 (19-31) mmol/L ABG O2 Saturation (94.0-98.0) % ABG Base Excess (-2.0-2.0) mmol/L Respiration Rate O2 Delivery Device Ventilator Type Vent Mode FiO2 Inspiratory Time PEEP Pressure Support Pressure Control EPAP IPAP BiPAP Sodium 138 (135-145) mmol/L Potassium 4.6 (3.5-5.0) mmol/L Chloride 106 (101-111) mmol/L Carbon Dioxide 22 (22-32) mmol/L Anion Gap 10 (2-11) mmol/L BUN 40 H (6-24) mg/dL Creatinine 1.44 H (0.67-1.17) mg/dL Est GFR ( Amer) 58.5 (>60) Est GFR (Non-Af Amer) 48.4 (>60) BUN/Creatinine Ratio 27.8 H (8-20) Glucose 160 H (70-100) mg/dL Lactic Acid (0.5-2.0) mmol/L Calcium 10.8 H (8.6-10.3) mg/dL Total Bilirubin 0.80 (0.2-1.0) mg/dL AST 42 H (13-39) U/L ALT 36 (7-52) U/L Alkaline Phosphatase 286 H (34-104) U/L Total Creatine Kinase 47 (10-223) U/L Troponin I 0.08 H* (<0.04) ng/mL C-Reactive Protein 87.71 H (<8.01) mg/L B-Natriuretic Peptide (<=100) pg/mL Total Protein 6.8 (6.4-8.9) g/dL Albumin 3.5 (3.2-5.2) g/dL Globulin 3.3 (2-4) g/dL Albumin/Globulin Ratio 1.1 (1-3) Blood Type Antibody Screen 12/02/18 12/02/18 12/02/18 Range/Units 09:30 09:30 09:30 WBC (3.5-10.8) 10^3/uL RBC (4.18-5.48) 10^6 /uL Hgb (14.0-18.0) g/dL Hct (42-52) % MCV (80-94) fL MCH (27-31) pg MCHC (31-36) g/dL RDW (10-15) % Plt Count (150-450) 10^3/uL MPV (7.4-10.4) fL Neut % (Auto) Lymph % (Auto) Oliver % (Auto) Eos % (Auto) Baso % (Auto) Absolute Neuts (auto) Absolute Lymphs (auto) Absolute Monos (auto) Absolute Eos (auto) Absolute Basos (auto) Absolute Nucleated RBC Nucleated RBC % INR (Anticoag Therapy) (0.82-1.09) APTT 33.6 (26.0-38.0) seconds Fibrinogen Pending D-Dimer, Quantitative (Less Than 230) ng/mL Patient Temperature ABG pH (7.35-7.45) ABG pH (Temp Correct) ABG pCO2 (35-45) mmHg ABG pCO2 (Temp Corrct ABG pO2 (80-100) mmHg ABG pO2 (Temp Correct ABG HCO3 (19-31) mmol/L ABG O2 Saturation (94.0-98.0) % ABG Base Excess (-2.0-2.0) mmol/L Respiration Rate O2 Delivery Device Ventilator Type Vent Mode FiO2 Inspiratory Time PEEP Pressure Support Pressure Control EPAP IPAP BiPAP Sodium (135-145) mmol/L Potassium (3.5-5.0) mmol/L Chloride (101-111) mmol/L Carbon Dioxide (22-32) mmol/L Anion Gap (2-11) mmol/L BUN (6-24) mg/dL Creatinine (0.67-1.17) mg/dL Est GFR ( Amer) (>60) Est GFR (Non-Af Amer) (>60) BUN/Creatinine Ratio (8-20) Glucose (70-100) mg/dL Lactic Acid 2.5 H* (0.5-2.0) mmol/L Calcium (8.6-10.3) mg/dL Total Bilirubin (0.2-1.0) mg/dL AST (13-39) U/L ALT (7-52) U/L Alkaline Phosphatase (34-104) U/L Total Creatine Kinase (10-223) U/L Troponin I (<0.04) ng/mL C-Reactive Protein (<8.01) mg/L B-Natriuretic Peptide 528 H (<=100) pg/mL Total Protein (6.4-8.9) g/dL Albumin (3.2-5.2) g/dL Globulin (2-4) g/dL Albumin/Globulin Ratio (1-3) Blood Type Antibody Screen 12/02/18 12/02/18 12/02/18 Range/Units 09:30 09:30 09:40 WBC (3.5-10.8) 10^3/uL RBC (4.18-5.48) 10^6 /uL Hgb (14.0-18.0) g/dL Hct (42-52) % MCV (80-94) fL MCH (27-31) pg MCHC (31-36) g/dL RDW (10-15) % Plt Count (150-450) 10^3/uL MPV (7.4-10.4) fL Neut % (Auto) Lymph % (Auto) Oliver % (Auto) Eos % (Auto) Baso % (Auto) Absolute Neuts (auto) Absolute Lymphs (auto) Absolute Monos (auto) Absolute Eos (auto) Absolute Basos (auto) Absolute Nucleated RBC Nucleated RBC % INR (Anticoag Therapy) (0.82-1.09) APTT (26.0-38.0) seconds Fibrinogen D-Dimer, Quantitative > 1050 H (Less Than 230) ng/mL Patient Temperature Not Reportable ABG pH 7.43 (7.35-7.45) ABG pH (Temp Correct) Not Reportable ABG pCO2 25 L (35-45) mmHg ABG pCO2 (Temp Corrct Not Reportable ABG pO2 69 L (80-100) mmHg ABG pO2 (Temp Correct Not Reportable ABG HCO3 20.1 (19-31) mmol/L ABG O2 Saturation 94.9 (94.0-98.0) % ABG Base Excess -6.0 L (-2.0-2.0) mmol/L Respiration Rate Not Reportable O2 Delivery Device nasal cannula 4lpm Ventilator Type Not Reportable Vent Mode Not Reportable FiO2 Not Reportable Inspiratory Time Not Reportable PEEP Not Reportable Pressure Support Not Reportable Pressure Control Not Reportable EPAP Not Reportable IPAP Not Reportable BiPAP Not Reportable Sodium (135-145) mmol/L Potassium (3.5-5.0) mmol/L Chloride (101-111) mmol/L Carbon Dioxide (22-32) mmol/L Anion Gap (2-11) mmol/L BUN (6-24) mg/dL Creatinine (0.67-1.17) mg/dL Est GFR ( Amer) (>60) Est GFR (Non-Af Amer) (>60) BUN/Creatinine Ratio (8-20) Glucose (70-100) mg/dL Lactic Acid (0.5-2.0) mmol/L Calcium (8.6-10.3) mg/dL Total Bilirubin (0.2-1.0) mg/dL AST (13-39) U/L ALT (7-52) U/L Alkaline Phosphatase (34-104) U/L Total Creatine Kinase (10-223) U/L Troponin I (<0.04) ng/mL C-Reactive Protein (<8.01) mg/L B-Natriuretic Peptide (<=100) pg/mL Total Protein (6.4-8.9) g/dL Albumin (3.2-5.2) g/dL Globulin (2-4) g/dL Albumin/Globulin Ratio (1-3) Blood Type A Positive Antibody Screen Pending Result Diagrams: 12/02/18 09:30 12/02/18 09:30 Lab Statement: Any lab studies that have been ordered have been reviewed, and results considered in the medical decision making process. - Radiology CXR Radiology Interpretation Completed By: Radiologist Summary of Radiographic Findings: 1. No new airspace opacification. 2. Known mediastinal and right perihilar lymphadenopathy (better characterized by recent chest CT). ED physician has reviewed this report. Lung VQ scan Radiology Interpretation Completed By: Radiologist Summary of Radiographic Findings: Multiple segmental and subsegmental perfusion defects consistent with pulmonary embolus. Limited study due to lack of ventilation. ED physician has reviewed this report. - CT CT a/p CT Interpretation Completed By: Radiologist Summary of CT Findings: There is progressively enlarging lesions in the liver consistent with progressive metastatic disease. Retroperitoneal adenopathy is similar to that seen on November 02, 2018. Perinephric infiltration of FAT of uncertain etiology. ED physician has reviewed this report. - EKG 0909 Cardiac Rate: Tachycardia - 108bpm EKG Rhythm: Sinus Tachycardia ST Segment: Normal Ectopy: None EKG Comparison: No Significant Change Summary of EKG Findings: EKG at 0909 shows sinus tachycardia at 108bpm with RBBB. Similar to 06/18/15. ED physician has reviewed and interpreted this report. Chest Pain Course/Dx - Course Assessment/Plan: This patient is a 73-year-old male who presents to the emergency department with a chief complaint of having cough, left-sided abdominal pain and shortness of breath. Lab results significant for WBCs of 24.3, left shift with 20.7, INR is 1.21, fibrinogen is 475, d-dimer is more than 1050, BUN is 40, creatinine 1.44, glucose 160, lactic acid is 2.5, calcium 10.8, AST 42, alkaline phosphatase 296, troponin 0.08, CRP is 87.7 and BMP for 528. Chest x-ray impression: No new opacification. Known mediastinal and right perihilar lymphadenopathy. Abdominopelvic CT impression: That is progressively enlarging lesions in the liver consistent with progressive metastatic disease. Retroperitoneal adenopathy is similar to that seen on November 02, 2018. Initially , the patient was given IV fluids since he was hypotensive, and the patient was placed in a nasal cannula oxygen 4 L since the patient was hypoxic. Since the patient was hypoxic, tachycardic or hypotensive with an increased troponin and d-dimer I ordered a VQ scan which shows that the patient has pulmonary emboli. Therefore the patient was placed in Lovenox. At this point I discussed my physical exam and findings with Dr. Scott and he accepted the patient for admission. Patient is hemodynamically stable alert and oriented 3. - Diagnoses Provider Diagnoses: Pulmonary emboli, Syncope Discharge ED - Sign-Out/Discharge Documenting (check all that apply): Patient Departure - Discharge Plan Condition: Stable Disposition: ADMITTED TO [facility] - Billing Disposition and Condition Condition: STABLE Disposition: Admitted to [facility] - Attestation Statements Document Initiated by Candy: Yes Documenting Scribe: Carie Rubio Provider For Whom Candy is Documenting (Include Credential): Carlos Nolasco MD. Scribe Attestation: ICarie, scribed for Carlos Nolasco MD. on 12/02/18 at 1850. Scribe Documentation Reviewed: Yes Provider Attestation: The documentation as recorded by the Carie dietz accurately reflects the service I personally performed and the decisions made by me, Carlos Nolasco MD. Status of Scribe Document: Viewed Consult Consult: [id number] - I spoke with Dr. Scott who accepts the pt for admission to [facility].
--- OUTSIDE RECORDS SUMMARY | 2018-12-02 10:45 | XMS REPORT | Continuity of Care Document ---
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 Problems Active Problems Provider Date Diabetes mellitus Lebron Sprague MD Onset: 03/27/2016 Stented coronary artery Lebron Sprague MD Onset: 03/27/2016 Type 2 diabetes mellitus Sridevi Marmolejo PA-C Onset: 11/05/2018 Essential hypertension Sridevi Marmolejo PA-C Onset: 11/05/2018 Abnormal findings diagnostic imaging of Sridevi Marmolejo PA-C Onset: liver+biliary tract Family history of malignant neoplasm of Sridevi Marmolejo PA-C Onset: gastrointestinal tract History of polyp of colon Sridevi Marmolejo PA-C Onset: 11/05/2018 Weight decreased Sridevi Marmolejo PA-C Onset: 11/05/2018 Generalized abdominal pain Sridevi Marmolejo PA-C Onset: 11/05/2018 Social History Type Date Description Comments Sex Unknown Tobacco Use Start: Unknown Patient has never smoked Smoking Status Reviewed: 11/05/18 Patient has never smoked Allergies, Adverse Reactions, Alerts Active Allergies Reaction Severity Comments Date NKDA 03/27/2016 Dust 10/17/2018 Pollen 10/17/2018 Medications Active Medications SIG Qnty Indications Ordering Date Provider Peg 3350/Electrolytes use as directed 4000ml R10.84 July 11/05/2018 240gm MD Daniela Solution Rec Omeprazole 1 by mouth 30caps R10.13 Jesús De La Paz, 07/11/2018 20mg Capsules every morning for stomach as Needed Amlodipine Besylate 1 by mouth 90tabs Jesús De La Paz, 03/25/2017 5mg Tablets every day Potassium Chloride Lenore ER 1 by mouth 30tabs Jesús De La Paz, 03/25/2017 20Meq every day MD Tablets ER Hydrochlorothiazide 1 by mouth 90caps I10 Jesús De La Paz, 03/25/2017 12.5mg every day MD Capsules Allopurinol Take 1 Tablet 30tabs M10.00 Jesús De La Paz, 07/04/2015 300mg Tablets By Mouth Every MD Day Glipizide ER Take 1 Tablet 90tabs Jesús De La Paz, 01/03/2009 5mg Tablets ER 24HR By Mouth Every MD Morning For Diabetes Metformin HCL bid Jesús De La Paz, 1000mg Tablets Metoprolol Succinate ER Vicente Pratt, 75mg MD Tablets ER 24HR Lisinopril Vicente Pratt, 20mg Tablets Rosuvastatin Calcium Vicente Pratt, 20mg Tablets Aspirin 1 po qd 90tabs Unknown 81mg Tablets Claritin 1 po qd prn Unknown 10mg Tablets Immunizations Description No Information Available Vital Signs Date Vital Result Comment 11/05/2018 8:16am Height 70 inches 5'10" Weight 352.00 lb BP Systolic 195 mmHg BP Diastolic 94 mmHg Heart Rate 61 /min BMI (Body Mass Index) 50.5 kg/m2 03/27/2016 1:58pm Height 70 inches 5'10" Weight 380.00 lb week ago at another DrLaura-our scale won't weigh BP Systolic 122 mmHg over 350 BP Diastolic 74 mmHg over 350 Heart Rate 60 /min BMI (Body Mass Index) 54.5 kg/m2 Results Description No Information Available Procedures Description No Information Available Medical Devices Description No Information Available Encounters Description No Information Available Assessments Date Code Description Provider 11/05/2018 R10.84 Generalized abdominal pain Sridevi Marmolejo PA-C 11/05/2018 R63.4 Abnormal weight loss Sridevi Marmolejo PA-C 11/05/2018 Z86.010 Personal history of colonic polyps Sridevi Marmolejo PA-C 11/05/2018 Z80.0 Family history of malignant neoplasm of Sridevi Marmolejo PA-C digestive organs 11/05/2018 R93.2 Abnormal findings on diagnostic imaging Sridevi Marmolejo PA-C of liver and biliary tract Plan of Treatment Future Appointment(s):11/19/2018 1:00 pm - July Suarez MD at [facility]11/05/2018 - JORGE L MontgomeryCR10.84 Generalized abdominal painNew Medication:Peg 3350/Electrolytes 240 gm - use as eebhhabdX92.4 Abnormal weight lossZ86.010 Personal history of colonic edicptL53.0 Family history of malignant neoplasm of digestive esvsgjL42.2 Abnormal findings on diagnostic imaging of liver and biliary tract Functional Status Description No Information Available Mental Status Description No Information Available Referrals Description No Information Available
--- OUTSIDE RECORDS SUMMARY | 2018-12-02 10:45 | XMS REPORT | Continuity of Care Document ---
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 [phone] Problems Active Problems Provider Date Diabetes mellitus [...] Weight 380.00 lb week ago at another Dr.-our scale won't weigh BP Systolic 122 mmHg over 350 BP Diastolic 74 mmHg over 350 Heart Rate 60 /min BMI (Body Mass Index) 54.5 kg/m2 Results Test Date Facility Test Result H/L Range Note Laboratory test 11/19/2018 [facility] [place] mg/dL High 70-100 1 finding Glucose Xray 11/02/2018 [facility], Abd & <pending> Pelvis W/ Contrast 1 Tail Edger: [id number] Procedures Description No Information Available Medical Devices Description No Information Available Encounters Type Date Location Provider Dx Diagnosis Office Visit 11/05/2018 [facility] Sridevi Lopez R10.84 Generalized 8:30a [facility] abdominal pain CARLOS-C R63.4 Abnormal weight loss Z86.010 Personal history of colonic polyps Z80.0 Family history of malignant neoplasm of digestive organs R93.2 Abnormal findings on dx imaging of liver and biliary tract Assessments Date Code Description Provider 11/05/2018 R10.84 Generalized abdominal pain Sridevi Marmolejo PA-C 11/05/2018 R63.4 Abnormal weight loss Sridevi Marmolejo PA-C 11/05/2018 Z86.010 Personal history of colonic polyps Sridevi Marmolejo PA-C 11/05/2018 Z80.0 Family history of malignant neoplasm of Sridevi Marmolejo PA-C digestive organs 11/05/2018 R93.2 Abnormal findings on diagnostic imaging Sridevi Marmolejo PA-C of liver and biliary tract Plan of Treatment 11/05/2018 - JORGE L MontgomeryCR10.84 Generalized abdominal painNew Medication:Peg 3350/Electrolytes 240 gm - use as bqvjztdxS88.4 Abnormal weight lossZ86.010 Personal history of colonic hxxpydG99.0 Family history of malignant neoplasm of digestive zrbooiB59.2 Abnormal findings on diagnostic imaging of liver and biliary tract Functional Status Description No Information Available Mental Status Description No Information Available Referrals Description No Information Available
[2018-12-02 11:00] LABS: ABS Eosinophils 0.1 10^3/ul (0-0.6); ABS Lymphocytes 1.9 10^3/ul (1.0-4.8); ABS Monocytes 1.5 10^3/ul (0-0.8); ABS Neutrophils 20.7 10^3/ul (1.5-7.7); Eosinophil % 0.3 %; Lymphocyte % 7.8 %
[2018-12-02 11:02] LABS: Fibrinogen 475.5 mg/dL (110.8-404.3)
[2018-12-02 12:31] LABS: Urine Appearance Clear; Urine Bilirubin Negative (Negative); Urine Blood Negative (Negative); Urine Color Yellow; Urine Glucose Negative (Negative); Urine Ketones Negative (Negative); Urine Nitrite Negative (Negative); Urine Protein Negative (Negative); Urine Specific Gravity > 1.060 (1.010-1.030); Urine Urobilinogen Positive (Negative)
[2018-12-02 13:03] LABS: Troponin I 0.08 ng/mL (<0.04)
[2018-12-02] MEDS ORDERED: Enoxaparin(*) 150 MG/ML 1 ML SYRINGE SUBCUT ONE (14:00)
[2018-12-02] MEDS ORDERED: Morphine 4 MG/ML VIAL (1 ml) 4 MG/ML VIAL IV ONE (15:17)
[2018-12-02] MEDS ORDERED: Ondansetron INJ* 2 MG/ML VIAL IV PRN (15:37)
[2018-12-02] MEDS ORDERED: Acetaminophen TAB* 325 MG PO PRN (15:37)
[2018-12-02] MEDS ORDERED: Dextrose 50% VIAL 50 ml IV PUSH PRN (15:44)
[2018-12-02] MEDS ORDERED: NS 0.9% 1000 ML** 1,000 ML IV SCH (15:45)
[2018-12-02 16:02] LABS: Troponin I 0.13 ng/mL (<0.04)
[2018-12-02] MEDS ORDERED: Perflutren Lipid Microsphere* 3 ML VIAL ONE (16:28)
[2018-12-02] MEDS: Insulin LISPRO* 1 UNITS UNIT SUBCUT SCH ×2 (17:25→21:10)
--- NOTE | 2018-12-02 17:44 | ECHO ---
*[facility]* [place] [address] Fax #: [phone] Transthoracic Echocardiogram Patient: Blaine Lazar : 1945 Study Date: 12/02/2018 Age: 73 Gender: M HR: 91 bpm Height: 68 in /172.7 cm BSA: 2.59 m^2 Weight: 349.3 lb /158.8 kg BMI: 53.2 kg/m^2 *Inspector Advanced Composite: Livier Bejarano [facility] *Referring Physician: * Dylon Romero *Reading Physician: * Skinny Lo MD Indications: Pulmonary Embolism. History: Esophageal cancer with liver metastasis. Coronary artery disease. Congestive heart failure. PMH: Myocardial infarction. Risk factors: Hypertension. Diabetes mellitus. Morbidly obese. Dyslipidemia. Labs, prior tests, procedures, and surgery: Catheterization. There was a stenosis which was treated with a stent. Conclusions Summary: - Left ventricle: Systolic function is normal. The estimated ejection fraction is 55-60%. Although no diagnostic regional wall motion abnormality is identified, this possibility cannot be completely excluded on the basis of this study. - Right ventricle: The cavity size is moderately to severely dilated. Systolic function is mildly to moderately reduced. - Ventricular septum: There is septal flattening of the interventricular septum consistent with RV volume or pressure overload. - Mitral valve: There is no significant regurgitation. - Aortic valve: There is no evidence of stenosis. There is no significant regurgitation. - Tricuspid valve: There is mild regurgitation. - Pericardium, extracardiac: There is no significant pericardial effusion. - Pulmonary arteries: Systolic pressure is moderately to severely increased. The peak pressure during systole by Doppler is 53.0 mm Hg. - Compared to study of 08/03/15, the left ventricle function has improved. The right ventricle dilation and dysfunction is new. Study data: Transthoracic echocardiogram. Procedure: Transthoracic echocardiography was performed. Image quality was suboptimal. Intravenous Definity , 3 mlswas administered. Complete 2D, spectral Doppler, and color flow Doppler. Location: Emergency department. Patient status: Inpatient. Patient room number: 15. Rhythm: Normal sinus rhythm. Findings Left ventricle: The cavity size is mildly reduced. Wall thickness is moderately increased. Systolic function is normal. The estimated ejection fraction is 55-60%. Although no diagnostic regional wall motion abnormality is identified, this possibility cannot be completely excluded on the basis of this study. There is no consistent Doppler evidence of clinically significant diastolic dysfunction. Right ventricle: The cavity size is moderately to severely dilated. Systolic function is mildly to moderately reduced. Ventricular septum: There is septal flattening of the interventricular septum consistent with RV volume or pressure overload. Left atrium: The atrium is normal in size. Right atrium: The atrium is moderately to severely dilated. Mitral valve: The leaflets are normal thickness. There is no evidence of stenosis. There is no significant regurgitation. Aortic valve: The valve is probably trileaflet. The leaflets are mildly thickened. There is no evidence of stenosis. There is no significant regurgitation. Tricuspid valve: The leaflets are normal thickness. There is no evidence of stenosis. There is mild regurgitation. Pulmonic valve: Not well visualized. The leaflets are normal thickness. There is no significant regurgitation. Aorta: The aortic root appears normal. The aortic arch appears normal. Pericardium: There is no significant pericardial effusion. Pulmonary arteries: Not well visualized. Systolic pressure is moderately to severely increased. Systemic veins: Inferior vena cava: Not well visualized. Measurements Left ventricle Value Ref Aortic valve Value Ref CYNDIE, LAX (L) 3.6 cm 4.2 - Zach diam, ED 2.3 cm ----- 5.8 Peak v, S 1.23 m/sec ----- ESD, LAX 2.8 cm 2.5 - VTI, S 20.1 cm ----- 4.0 Mean grad, S 4.0 mm Hg ----- FS, LAX (L) 21 % 25 - 43 Peak grad, S 6.0 mm Hg ----- PW, ED, LAX (H) 1.5 cm 0.6 - 1.0 Mitral valve Value Ref E', lat zach, TDI (L) 4.9 cm/sec >=10.0 Peak E 0.4 m/sec --- -- E/e', lat zach, TDI 8 -------- Peak A 0.57 m/sec ----- E', med zach, TDI 8.3 cm/sec >=7.0 Decel time 82 ms --- -- E/e', med zach, TDI 5 -------- Peak E/A ratio 0.7 ----- E', avg, TDI 6.6 cm/sec -------- E/e', avg, TDI 6 <=14 Pulmonic valve Value Ref Peak v, S 0.43 m/sec ----- LVOT Value Ref Peak grad, S 1.0 mm Hg ----- Peak kalyn, S 0.72 m/sec -------- Mean grad, S 1 mm Hg -------- Tricuspid valve Value Ref TR peak v (H) 2.9 m/sec <=2.8 Ventricular septum Value Ref Peak RV-RA grad, S 34 mm Hg ----- IVS, ED (H) 1.6 cm 0.6 - 1.0 Aortic root Value Ref Root diam 3.4 cm <4.6 Right ventricle Value Ref CYNDIE, LAX 5.1 cm -------- Aortic arch Value Ref CYNDIE minor ax, A4C (H) 5.6 cm 1.9 - Arch diam 3.0 cm ----- mid 3.5 Pressure, S 54 mm Hg -------- Decending aorta Value Ref Chi peak kalyn 0.62 m/sec ----- Left atrium Value Ref ML dim, A4C 3.6 cm -------- Pulmonary artery Value Ref SI dim, A4C 4.8 cm -------- Pressure, S 53.0 mm Hg ----- Vol/bsa, ES, A/L 27 ml/m^2 16 - 34 Right atrium Value Ref SI dim, ES (H) 6.1 cm 3.4 - 5.3 ML dim, ES, A4C (H) 5.4 cm 2.6 - 4.4 Estimated RAP 20 mm Hg -------- Legend: (L) and (H) wili values outside specified reference range. Prepared and electronically signed by Skinny Lo MD 12/02/2018 17:43
[2018-12-02] MEDS: Allopurinol TAB* 300 MG PO SCH (17:59)
[2018-12-02] MEDS: oxyCODONE SR TAB(*) 20 MG TAB.SR PO SCH (21:10)
[2018-12-03] MEDS: Enoxaparin(*) 150 MG/ML 1 ML SYRINGE SUBCUT SCH ×2 (02:36→14:30)
[2018-12-03 05:27] LABS: ABS Basophils 0.1 10^3/ul (0-0.2); ABS Eosinophils 0.2 10^3/ul (0-0.6); ABS Lymphocytes 2.1 10^3/ul (1.0-4.8); ABS Monocytes 1.4 10^3/ul (0-0.8); ABS Neutrophils 15.6 10^3/ul (1.5-7.7); Eosinophil % 1.3 %; Hematocrit 38 % (42-52); Lymphocyte % 10.6 %; Mean Corpuscular HGB Conc 32 g/dL (31-36); Mean Corpuscular Hemoglobin 29 pg (27-31); Mean Corpuscular Volume 91 fL (80-94); Mean Platelet Volume 10.9 fL (7.4-10.4); Nucleated Red Blood Cells % 0.1; Platelet Count 234 10^3/uL (150-450); Red Blood Count 4.14 10^6 /uL (4.18-5.48); Red Cell Distribution Width 16 % (10-15); White Blood Count 19.4 10^3/uL (3.5-10.8)
[2018-12-03 05:42] LABS: Albumin/Globulin Ratio 1.1 (1-3); BUN/Creatinine Ratio 29.6 (8-20); EGFR African American 81.6 (>60); EGFR Non-African American 67.4 (>60); Globulin 2.8 g/dL (2-4); Potassium 4.7 mmol/L (3.5-5.0); Total Bilirubin 0.8 mg/dL (0.2-1.0); Total Protein 5.8 g/dL (6.4-8.9)
[2018-12-03] MEDS ORDERED: Pantoprazole TAB * 40 MG TAB PO SCH (09:00)
[2018-12-03] MEDS: Insulin LISPRO* 1 UNITS UNIT SUBCUT SCH ×4 (09:19→20:33)
[2018-12-03] MEDS: Aspirin EC TAB* 81 MG TAB.EC PO SCH (09:26)
[2018-12-03] MEDS: Atorvastatin* 40 MG TAB PO SCH (09:26)
[2018-12-03] MEDS: oxyCODONE SR TAB(*) 20 MG TAB.SR PO SCH ×2 (09:26→20:07)
--- NOTE | 2018-12-03 11:28 | PN ---
Date of Service: 12/03/18 Critical Care Services: Remains hypoxemic and on full dose Lovenox Mildly elevated trops. Hemodynamically stable. Newly dx'd with esophogeal cancer Vital Signs: Temp Pulse Resp BP SpO2 FiO2 97.3 F 86 21 120/62 91 12/03/18 07:00 12/03/18 10:01 12/03/18 10:01 12/03/18 10:01 12/03/18 10:01 Physical Exam: Gen: obese. AO times 3. does not tolerate being taken off face mask HEENT:EOMI Lungs:Decreased BS's Cardiac: RRR Abdomen:+BS, SOft, NTP Extremities: + 1 ARCHIE Neuro: moving all extremities. Non-focal Fluid Balance (Past 24 Hours): I= O= Net Intake & Output 12/01/18 12/02/18 12/03/18 12/04/18 06:59 06:59 06:59 06:59 Intake Total 1920 780 Output Total 1075 0 Balance 845 780 Weight 349 lb Intake: IV Fluids 1000 IVPB 600 NS (0.9%) 600 Oral 320 780 Output: Urine 1075 0 Other: Estimated Void Medium # Voids 1 Labs: Laboratory Results - last 24 hr 12/02/18 12/02/18 12/02/18 11:44 12:21 15:21 WBC RBC Hgb Hct MCV MCH MCHC RDW Plt Count MPV Neut % (Auto) Lymph % (Auto) [place] % (Auto) Eos % (Auto) Baso % (Auto) Absolute Neuts (auto) Absolute Lymphs (auto) Absolute Monos (auto) Absolute Eos (auto) Absolute Basos (auto) Absolute Nucleated RBC Nucleated RBC % Sodium Potassium Chloride Carbon Dioxide Anion Gap BUN Creatinine Est GFR ( Amer) Est GFR (Non-Af Amer) BUN/Creatinine Ratio Glucose POC Glucose (mg/dL) Calcium Total Bilirubin AST ALT Alkaline Phosphatase Troponin I 0.08 H* 0.13 H* Total Protein Albumin Globulin Albumin/Globulin Ratio Urine Color Yellow Urine Appearance Clear Urine pH 5.0 Ur Specific [place] > 1.060 H Urine Protein Negative Urine Ketones Negative Urine Blood Negative Urine Nitrate Negative Urine Bilirubin Negative Urine Urobilinogen Positive A Ur Leukocyte Esterase Negative Urine Glucose Negative 12/02/18 12/03/18 12/03/18 21:01 04:50 04:50 WBC 19.4 H RBC 4.14 L Hgb 12.0 L Hct 38 L MCV 91 MCH 29 MCHC 32 RDW 16 H Plt Count 234 MPV 10.9 H Neut % (Auto) 80.4 Lymph % (Auto) 10.6 [place] % (Auto) 7.4 Eos % (Auto) 1.3 Baso % (Auto) 0.3 Absolute Neuts (auto) 15.6 H Absolute Lymphs (auto) 2.1 Absolute Monos (auto) 1.4 H Absolute Eos (auto) 0.2 Absolute Basos (auto) 0.1 Absolute Nucleated RBC 0.0 Nucleated RBC % 0.1 Sodium 137 Potassium 4.7 Chloride 110 Carbon Dioxide 20 L Anion Gap 7 BUN 32 H Creatinine 1.08 Est GFR ( Amer) 81.6 Est GFR (Non-Af Amer) 67.4 BUN/Creatinine Ratio 29.6 H Glucose 125 H POC Glucose (mg/dL) 141 H Calcium 10.0 Total Bilirubin 0.80 AST 40 H ALT 29 Alkaline Phosphatase 231 H Troponin I Total Protein 5.8 L Albumin 3.0 L Globulin 2.8 Albumin/Globulin Ratio 1.1 Urine Color Urine Appearance Urine pH Ur Specific [place] Urine Protein Urine Ketones Urine Blood Urine Nitrate Urine Bilirubin Urine Urobilinogen Ur Leukocyte Esterase Urine Glucose 12/03/18 09:12 WBC RBC Hgb Hct MCV MCH MCHC RDW Plt Count MPV Neut % (Auto) Lymph % (Auto) [place] % (Auto) Eos % (Auto) Baso % (Auto) Absolute Neuts (auto) Absolute Lymphs (auto) Absolute Monos (auto) Absolute Eos (auto) Absolute Basos (auto) Absolute Nucleated RBC Nucleated RBC % Sodium Potassium Chloride Carbon Dioxide Anion Gap BUN Creatinine Est GFR ( Amer) Est GFR (Non-Af Amer) BUN/Creatinine Ratio Glucose POC Glucose (mg/dL) 134 H Calcium Total Bilirubin AST ALT Alkaline Phosphatase Troponin I Total Protein Albumin Globulin Albumin/Globulin Ratio Urine Color Urine Appearance Urine pH Ur Specific [place] Urine Protein Urine Ketones Urine Blood Urine Nitrate Urine Bilirubin Urine Urobilinogen Ur Leukocyte Esterase Urine Glucose Impression: Pulmonary Embolism with LVEF 55-60% and septal flattening HTN Newly dx'd Esophagus cancer with mets DM Hx CAD Obesity ARF with hypoxemia Plan: will discuss with Oncology anti-coagulation - remains on full dose Lovenox may need to go to high flow oxygen if continues to desat check LE Dopplers to r/o LE DVT Poor candidate for T-PA 2/2 metastatic CA Check BNP's and Trops for further R heart strain minimize IVF's May need small dose lasix continue to monitor in ICU will need to d/w patient and family EOL's goals. Remains full code. Critical Care Time: 44
--- NOTE | 2018-12-03 11:40 | PN ---
Progress Note - Progress Note Date of Service: 12/03/18 SOAP: Subjective: [Doing ok this morning. Titrated down to 5L supp O2 via face mask. He felt like there was too much pressure using his CPAP with the supp O2 and more comfortable on the O2 face mask. He is able to maintain saturations in the low 90s. Reports some mild L subscapular pain, nothing as severe as yesterday.] Objective: [ Vital Signs: Temp Pulse Resp BP Pulse Ox 97.3 F 99 17 109/74 95 12/03/18 07:00 12/03/18 11:01 12/03/18 11:01 12/03/18 11:01 12/03/18 11:01 Acetaminophen (Tylenol Tab*) 650 mg PO Q4H PRN PRN Reason: pain/fever Allopurinol (Zyloprim Tab*) 300 mg PO QPM [facility] Last Admin: 12/02/18 17:59 Dose: 300 mg Aspirin (Aspirin Ec Tab*) [facility] [place] Admin: 12/03/18 09:26 Dose: 81 mg Atorvastatin Calcium (Lipitor*) [facility] [place] Last Admin: 12/03/18 09:26 Dose: 40 mg Dextrose (Dextrose 50% Vial 50 Ml*) 25 ml IV PUSH .FOR FS < 60 - SS PRN PRN Reason: FS < 60 Enoxaparin Sodium (Lovenox(*)) 150 mg SUBCUT Q12H [facility] Last Admin: 12/03/18 02:36 Dose: 150 mg Insulin Human Lispro (Humalog*) 0 units SUBCUT [facility]; Protocol Last Admin: 12/03/18 09:19 Dose: Not Given Ondansetron HCl (Zofran Inj*) 4 mg IV Q4H PRN PRN Reason: NAUSEA/VOMITING Oxycodone HCl (Oxycontin(*)) 20 mg PO BID [facility] Last Admin: 12/03/18 09:26 Dose: 20 mg Pantoprazole Sodium (Protonix Tab*) [facility] [place] [facility] Admin: 12/03/18 09:26 Dose: 40 mg Laboratory Results - last 24 hr 12/02/18 12/02/18 12/02/18 11:44 12:21 15:21 WBC RBC Hgb Hct MCV MCH MCHC RDW Plt Count MPV Neut % (Auto) Lymph % (Auto) [place] % (Auto) Eos % (Auto) Baso % (Auto) Absolute Neuts (auto) Absolute Lymphs (auto) Absolute Monos (auto) Absolute Eos (auto) Absolute Basos (auto) Absolute Nucleated RBC Nucleated RBC % Sodium Potassium Chloride Carbon Dioxide Anion Gap BUN Creatinine Est GFR ( Amer) Est GFR (Non-Af Amer) BUN/Creatinine Ratio Glucose POC Glucose (mg/dL) Calcium Total Bilirubin AST ALT Alkaline Phosphatase Troponin I 0.08 H* 0.13 H* Total Protein Albumin Globulin Albumin/Globulin Ratio Urine Color Yellow Urine Appearance Clear Urine pH 5.0 Ur Specific [place] > 1.060 H Urine Protein Negative Urine Ketones Negative Urine Blood Negative Urine Nitrate Negative Urine Bilirubin Negative Urine Urobilinogen Positive A Ur Leukocyte Esterase Negative Urine Glucose Negative 12/02/18 12/03/18 12/03/18 21:01 04:50 04:50 WBC 19.4 H RBC 4.14 L Hgb 12.0 L Hct 38 L MCV 91 MCH 29 MCHC 32 RDW 16 H Plt Count 234 MPV 10.9 H Neut % (Auto) 80.4 Lymph % (Auto) 10.6 [place] % (Auto) 7.4 Eos % (Auto) 1.3 Baso % (Auto) 0.3 Absolute Neuts (auto) 15.6 H Absolute Lymphs (auto) 2.1 Absolute Monos (auto) 1.4 H Absolute Eos (auto) 0.2 Absolute Basos (auto) 0.1 Absolute Nucleated RBC 0.0 Nucleated RBC % 0.1 Sodium 137 Potassium 4.7 Chloride 110 Carbon Dioxide 20 L Anion Gap 7 BUN 32 H Creatinine 1.08 Est GFR ( Amer) 81.6 Est GFR (Non-Af Amer) 67.4 BUN/Creatinine Ratio 29.6 H Glucose 125 H POC Glucose (mg/dL) 141 H Calcium 10.0 Total Bilirubin 0.80 AST 40 H ALT 29 Alkaline Phosphatase 231 H Troponin I Total Protein 5.8 L Albumin 3.0 L Globulin 2.8 Albumin/Globulin Ratio 1.1 Urine Color Urine Appearance Urine pH Ur Specific [place] Urine Protein Urine Ketones Urine Blood Urine Nitrate Urine Bilirubin Urine Urobilinogen Ur Leukocyte Esterase Urine Glucose 12/03/18 09:12 WBC RBC Hgb Hct MCV MCH MCHC RDW Plt Count MPV Neut % (Auto) Lymph % (Auto) [place] % (Auto) Eos % (Auto) Baso % (Auto) Absolute Neuts (auto) Absolute Lymphs (auto) Absolute Monos (auto) Absolute Eos (auto) Absolute Basos (auto) Absolute Nucleated RBC Nucleated RBC % Sodium Potassium Chloride Carbon Dioxide Anion Gap BUN Creatinine Est GFR ( Amer) Est GFR (Non-Af Amer) BUN/Creatinine Ratio Glucose POC Glucose (mg/dL) 134 H Calcium Total Bilirubin AST ALT Alkaline Phosphatase Troponin I Total Protein Albumin Globulin Albumin/Globulin Ratio Urine Color Urine Appearance Urine pH Ur Specific [place] Urine Protein Urine Ketones Urine Blood Urine Nitrate Urine Bilirubin Urine Urobilinogen Ur Leukocyte Esterase Urine Glucose Exam: Gen: ill appearing 73 yo male in NAD with face mask in place HEENT: MMM CV: RRR, no m/r/g Resp: CTA, no w/c/r Abd: soft, obese Ext: trace to 1+ edema Skin: no rashes] Assessment: [This is a 73 yo male with metastatic esophageal CA who was scheduled to start chemotherapy 12/02 when he became suddenly SOB with L subscapular back pain. He was subsequently found to have multiple PEs and initially hypotensive and hypoxic requiring up to 10L supp O2. He has moderate RV strain appreciated on echo. He is not an ideal TPA candidate due to his metastatic disease. ] Plan: [1. PE - improved oxygenation and hypotension has resolved - cont Lovenox 150 mg bid - cont supp O2 as needed to maintain O2 saturations >92% 2. CAMELIA - use CPAP as tolerated 3. NIDDM - oral hypoglycemic agents held - cover hyperglycemia with sliding scale humalog 4. Metastatic esophageal CA - appears to have aggressive/advancing disease - goal is to initiate FOLFOX chemotherapy CHRIS, likely Saturday next week 5. FULL CODE Dispo: transfer to telemetry floor today. Assess appropriateness for dc home over the next couple of days, may require supp O2 at discharge.]
[2018-12-03] MEDS: Allopurinol TAB* 300 MG PO SCH (18:06)
[2018-12-04] MEDS: Enoxaparin(*) 150 MG/ML 1 ML SYRINGE SUBCUT SCH ×2 (01:10→12:25)
[2018-12-04 07:00] LABS: ABS Eosinophils 0.2 10^3/ul (0-0.6); ABS Monocytes 1.1 10^3/ul (0-0.8); ABS Neutrophils 14.3 10^3/ul (1.5-7.7); Eosinophil % 1.4 %; Hematocrit 37 % (42-52); Hemoglobin 12.4 g/dL (14.0-18.0); Lymphocyte % 11.2 %; Mean Corpuscular HGB Conc 34 g/dL (31-36); Mean Corpuscular Hemoglobin 30 pg (27-31); Mean Corpuscular Volume 90 fL (80-94); Nucleated Red Blood Cells % 0.1; Platelet Count 241 10^3/uL (150-450); Red Cell Distribution Width 15 % (10-15); White Blood Count 17.7 10^3/uL (3.5-10.8)
[2018-12-04 07:25] LABS: Albumin 2.9 g/dL (3.2-5.2); Albumin/Globulin Ratio 0.9 (1-3); BUN/Creatinine Ratio 26.3 (8-20); EGFR African American 90.2 (>60); EGFR Non-African American 74.5 (>60); Globulin 3.3 g/dL (2-4); Potassium 4.1 mmol/L (3.5-5.0); Total Protein 6.2 g/dL (6.4-8.9)
[2018-12-04 07:34] LABS: Total Bilirubin 0.8 mg/dL (0.2-1.0)
[2018-12-04] MEDS: Insulin LISPRO* 1 UNITS UNIT SUBCUT SCH ×4 (08:55→20:41)
[2018-12-04] MEDS: oxyCODONE SR TAB(*) 20 MG TAB.SR PO SCH ×2 (08:56→20:41)
[2018-12-04] MEDS: Atorvastatin* 40 MG TAB PO SCH (08:56)
[2018-12-04] MEDS: Aspirin EC TAB* 81 MG TAB.EC PO SCH (08:56)
--- NOTE | 2018-12-04 10:41 | PN ---
Progress Note - Progress Note Date of Service: 12/04/18 SOAP: Subjective: []Feeling OK overall, though has persistent abd. pains and c/o significant fatigue and still gets winded easily. Has not been moving much though he was independent at home. No other concerns. appropriately anxious about d/c planning. Both and Blaine are motivated to get him home. Medications: Acetaminophen (Tylenol Tab*) 650 mg PO Q4H PRN PRN Reason: pain/fever Allopurinol (Zyloprim Tab*) 300 mg PO QPM [facility] Last Admin: 12/03/18 18:06 Dose: 300 mg Aspirin (Aspirin Ec Tab*) 81 mg PO QAM [facility] Last Admin: 12/04/18 08:56 Dose: 81 mg Atorvastatin Calcium (Lipitor*) [facility] Last Admin: 12/04/18 08:56 Dose: 40 mg Dextrose (Dextrose 50% Vial 50 Ml*) 25 ml IV PUSH .FOR FS < 60 - SS PRN PRN Reason: FS < 60 Enoxaparin Sodium (Lovenox(*)) 150 mg SUBCUT 1145,2345 [facility] Stop: 12/04/18 23:59 Enoxaparin Sodium (Lovenox(*)) 150 mg SUBCUT 1100,2300 [facility] Stop: 12/05/18 23:59 Enoxaparin Sodium (Lovenox(*)) 150 mg SUBCUT 1000,2200 [facility] Insulin Human Lispro (Humalog*) 0 units SUBCUT ACHS [facility]; Protocol Last Admin: 12/04/18 08:55 Dose: 1 unit Ondansetron HCl (Zofran Inj*) 4 mg IV Q4H PRN PRN Reason: NAUSEA/VOMITING Oxycodone HCl (Oxycontin(*)) 20 mg PO BID [facility] Last Admin: 12/04/18 08:56 Dose: 20 mg Objective: [] Vital Signs Temp Pulse Resp BP Pulse Ox 97 F 72 20 107/75 94 12/04/18 07:15 12/04/18 07:15 12/04/18 08:56 12/04/18 07:15 12/04/18 07:15 A&Ox3, EOMI, neuro grossly non-focal HRR, S1S2, distant heart sounds LS clear +BS, abd. soft, round, non-tender, obese Laboratory Results - last 24 hr 12/03/18 12/03/18 12/03/18 12:15 16:27 20:04 WBC RBC Hgb Hct MCV MCH MCHC RDW Plt Count MPV Neut % (Auto) Lymph % (Auto) [place] % (Auto) Eos % (Auto) Baso % (Auto) Absolute Neuts (auto) Absolute Lymphs (auto) Absolute Monos (auto) Absolute Eos (auto) Absolute Basos (auto) Absolute Nucleated RBC Nucleated RBC % Sodium Potassium Chloride Carbon Dioxide Anion Gap BUN Creatinine Est GFR ( Amer) Est GFR (Non-Af Amer) BUN/Creatinine Ratio Glucose POC Glucose (mg/dL) 150 H 169 H 189 H Calcium Total Bilirubin AST ALT Alkaline Phosphatase B-Natriuretic Peptide Total Protein Albumin Globulin Albumin/Globulin Ratio 12/03/18 12/04/18 12/04/18 20:30 06:20 06:20 WBC 17.7 H RBC 4.10 L Hgb 12.4 L Hct 37 L MCV 90 MCH 30 MCHC 34 RDW 15 Plt Count 241 MPV 11.0 H Neut % (Auto) 80.7 Lymph % (Auto) 11.2 [place] % (Auto) 6.4 Eos % (Auto) 1.4 Baso % (Auto) 0.3 Absolute Neuts (auto) 14.3 H Absolute Lymphs (auto) 2.0 Absolute Monos (auto) 1.1 H Absolute Eos (auto) 0.2 Absolute Basos (auto) 0.0 Absolute Nucleated RBC 0.0 Nucleated RBC % 0.1 Sodium 138 Potassium 4.1 Chloride 110 Carbon Dioxide 20 L Anion Gap 8 BUN 26 H Creatinine 0.99 Est GFR ( Amer) 90.2 Est GFR (Non-Af Amer) 74.5 BUN/Creatinine Ratio 26.3 H Glucose 127 H POC Glucose (mg/dL) Calcium 10.0 Total Bilirubin 0.80 AST 50 H ALT 39 Alkaline Phosphatase 249 H B-Natriuretic Peptide 460 H Total Protein 6.2 L Albumin 2.9 L Globulin 3.3 Albumin/Globulin Ratio 0.9 L Assessment: []73 yo male with newly diagnosed metastatic esophageal CA who was scheduled to start chemotherapy 12/02 when he became suddenly SOB with L subscapular back pain found to have multiple PEs now on anti-coagulation with slowly improving O2 needs. Plan: []1. PE: - cont. Lovenox 150 mg subq BID, check anti-Xa level this afternoon - will need indefinite anti-coagulation with malignancy 2. Hypoxia: - secondary to acute PE, improving oxygenation since starting anti-coagulation - start weaning and assess ambulatory O2, goal of O2 >/= 92% 3. Weakness - multi-factorial, but suspect some deconditioning with acute insult and metastatic disease - PT eval and treat, plan for home PT - and pt. have plan for hospital bed and move to get 1st floor at home, will only need to do 2 steps to get in house 4. Metastatic esophageal CA - appears to have aggressive/advancing disease - goal is to initiate mFOLFOX chemotherapy CHRIS, likely Saturday next week - will plan PICC to start in order to avoid interrupting anti-coagulation 5. NIDDM - oral hypoglycemic agents held, will check a HgbA1C today - cover hyperglycemia with sliding scale humalog while inpt., and hopefully resume home meds but dependent on above lab 6. CAMELIA - use CPAP as tolerated Dispo: case management, PT, and O2 needs assessed today, suspect earliest d/c would be Sat. 12/06 AM
[2018-12-04] MEDS ORDERED: Loperamide CAP* 2 MG PO PRN (17:08)
[2018-12-04] MEDS: Allopurinol TAB* 300 MG PO SCH (17:59)
[2018-12-05] MEDS: Enoxaparin(*) 150 MG/ML 1 ML SYRINGE SUBCUT SCH (00:07)
[2018-12-05] MEDS: Insulin LISPRO* 1 UNITS UNIT SUBCUT SCH ×2 (08:59→12:27)
[2018-12-05] MEDS: Atorvastatin* 40 MG TAB PO SCH (09:04)
[2018-12-05] MEDS: Aspirin EC TAB* 81 MG TAB.EC PO SCH (09:04)
[2018-12-05] MEDS: oxyCODONE SR TAB(*) 20 MG TAB.SR PO SCH (09:04)
[2018-12-05] MEDS ORDERED: Enoxaparin(*) 150 MG/ML 1 ML SYRINGE SUBCUT SCH (11:00)
[2018-12-05] MEDS ORDERED: Amoxicillin/Clavulanate TAB* 875 MG PO SCH (13:00)
[2018-12-05 16:17] VITALS: BP 145/62
[2018-12-06] MEDS ORDERED: Enoxaparin(*) 150 MG/ML 1 ML SYRINGE SUBCUT SCH (10:00)
--- NOTE | 2018-12-06 20:52 | DS ---
CC: Dr. De La Paz; Dr. Ramirez * DISCHARGE SUMMARY: DATE OF ADMISSION: 12/02/18 DATE OF DISCHARGE: 12/05/18 PRIMARY CARE PROVIDER: Dr. De La Paz. PRIMARY ONCOLOGIST: Dr. Aiden Ramirez. ATTENDING PHYSICIAN: Dr. Jesús Scott.* (DICTATED BY CARLOS OJEDA) DISCHARGING PROVIDER: CARLOS Ojeda PRIMARY DISCHARGE DIAGNOSES: 1. Pulmonary emboli. 2. Metastatic esophageal cancer. 3. Zdu-cofhvya-wfnsrzeuw diabetes. 4. Hypertension. 5. Possible periapical abscess of incisor. HOSPITAL IMAGIN. Chest x-ray, 12/02/18, shows known mediastinal and right perihilar lymphadenopathy. No new airspace consolidation. 2. CT abdomen and pelvis, 12/02/18, shows progressively enlarging lesions in the liver consistent with progressive metastatic disease, retroperitoneal adenopathy is similar when compared to 11/02/18 CT. 3. V/Q scan, 12/02/18, shows multiple segmental and subsegmental perfusion defects consistent with pulmonary embolism. 4. Venous Doppler study, 12/03/18, shows bilateral calf vein thrombosis without extension to or above the popliteal vein. DISCHARGE MEDICATIONS: 1. Allopurinol 300 mg p.o. daily. 2. Aspirin 81 mg p.o. daily. 3. Lisinopril 40 mg in the morning, 20 mg at night. 4. Loratadine 10 mg p.o. daily as needed for allergies. 5. Metformin 1000 mg p.o. twice daily. 6. Metoprolol succinate 75 mg p.o. twice daily. 7. Omeprazole 20 mg p.o. daily. 8. OxyContin 10 mg p.o. twice daily. 9. Potassium chloride 20 mEq p.o. daily. 10. Crestor 20 mg p.o. daily. 11. Augmentin 875 mg p.o. twice daily. 12. Lovenox 150 mg subcu q.12 hours. HOSPITAL COURSE: This is a 73-year-old gentleman with known metastatic esophageal cancer, under the care of Dr. Ramirez, who was referred to the emergency department with acute onset of dyspnea and left subscapular back pain. The patient was planning to start chemotherapy the day of hospitalization and was getting a PICC line placed in anticipation for chemotherapy and when he was asked to lie flat became acutely symptomatic. The patient had reported that he had just not been feeling well for the few days prior and did report some intermittent shortness of breath and subscapular back pain. Initial imaging was benign, but V/Q scan demonstrated multiple pulmonary emboli, and the patient was subsequently admitted to the hospital. The patient was started on twice daily Lovenox dosing. Echocardiogram demonstrated moderate right ventricular strain. When he first reached the emergency department, he was hypotensive, but that corrected quickly with a fluid bolus and hypoxic requiring up to 10 L of supplemental oxygen to maintain appropriate oxygenation. The patient was initially admitted to ICU due to hypotension on presentation and high oxygen needs. The patient's oxygen needs improved slightly over the first 12 hours of his hospitalization and he was transferred to the telemetry floor. Initial troponins were mildly elevated, but no dysrhythmias appreciated on telemetry monitoring. The patient's oxygen needs slowly improved throughout his hospital stay and he did not require supplemental oxygen to maintain appropriate oxygenation at rest or with ambulation at the time of discharge. The patient had no bleeding complications from initiation of anticoagulation and otherwise had no complications during this hospital stay. On the day of discharge, the patient noted some pain over his right incisor. He states that it has been happening intermittently and now reported more of an aching sensation. There was some mild edema appreciated on exam and he was empirically started on antibiotics for possible periapical abscess. DISPOSITION AND FOLLOWUP PLAN: The patient is being discharged to home in stable condition. He does not require supplemental oxygen at the time of discharge. He does require a hospital bed and a walker as well as a commode, which Case Management has helped to arrange and has been delivered to his home. The patient has plans to start chemotherapy urgently. His first cycle of FOLFOX will be 12/08/18. Metastatic liver lesions have progressively increased in size over just the last couple of weeks with serial scans. Of note , an anti-factor Xa level was drawn after the patient's fifth dose of Lovenox and is pending at the time of discharge. Lovenox dosing will be adjusted appropriately as an outpatient according to these results. CARLOS OJEDA [id number]/[facility] #: [id number] [facility]
== END 2018-12-05 17:15 | disposition home or self-care (01) | DRG 176 ==
LOC: ED 09:06 → ICU 15:37 → MEDTELE 12-03 16:58
PROVIDERS: ADMIT Internal Medicine Hematology & Oncology; ATTEND Internal Medicine Hematology & Oncology
DX: I26.99 Other pulmonary embolism without acute cor pulmonale (principal); C15.9 Malignant neoplasm of esophagus, unspecified; C78.7 Secondary malignant neoplasm of liver and intrahepatic bile duct; Z68.43 Body mass index [BMI] 50.0-59.9, adult; I82.4Z3 Acute embolism and thrombosis of unspecified deep veins of distal lower extremity, bilateral; I50.9 Heart failure, unspecified; E78.00 Pure hypercholesterolemia, unspecified; I11.0 Hypertensive heart disease with heart failure; J45.909 Unspecified asthma, uncomplicated; E66.9 Obesity, unspecified; E11.65 Type 2 diabetes mellitus with hyperglycemia; R59.1 Generalized enlarged lymph nodes; M17.12 Unilateral primary osteoarthritis, left knee; M10.9 Gout, unspecified; M19.012 Primary osteoarthritis, left shoulder; R09.02 Hypoxemia; I95.9 Hypotension, unspecified; G47.33 Obstructive sleep apnea (adult) (pediatric); K04.7 Periapical abscess without sinus; E78.5 Hyperlipidemia, unspecified; K21.9 Gastro-esophageal reflux disease without esophagitis; R79.89 Other specified abnormal findings of blood chemistry; I25.10 Atherosclerotic heart disease of native coronary artery without angina pectoris; Z95.5 Presence of coronary angioplasty implant and graft; I25.2 Old myocardial infarction; Z79.82 Long term (current) use of aspirin; Z79.84 Long term (current) use of oral hypoglycemic drugs; Z98.42 Cataract extraction status, left eye; Z98.41 Cataract extraction status, right eye; Z79.01 Long term (current) use of anticoagulants
CPT/HCPCS: 30901; 36415; 71045; 74177; 78582; 80053; 81003; 82550; 82803; 83036; 83605; 83735; 83880; 84484; 85025; 85379; 85384; 85520; 85610; 85652; 85730; 86140; 86850; 86900; 86901; 87040; 87641; 93005; 93306; 93970; 96372; 96374; 99222; 99232; 99233; 99239; 99285; A9270-GY; A9540; C8929; G8978-GP-CK; G8978-GP-CL; G8979-GP-CH; G8979-GP-CI; J1650; J2270; Q9967

== ENCOUNTER → 2018-12-18 05:36 | Day surgery (SDC) | payer MEDICARE, BC ==
[~2018-12-18 05:36] MED LIST changes: +Acetaminophen TAB* 325 MG PO PRN; +Bupivacaine 0.25% SDV PF* 10 ML VIAL INJ ONE; +Ibuprofen TAB* 600 MG PO PRN; -Midazolam* 1 MG/ML 5 ML VIAL (5 MG) ONE; +Naloxone* 0.4 MG/ML 1 ML VIAL IV PRN; +Ondansetron INJ* 2 MG/ML VIAL IV PRN; +ceFAZolin 1 GM ADVAN(*) 1 GM ADDV.VIAL IVPB ONE; +ceFAZolin 2 GM in NS PREMIX(*) 2 GM/100 ML BAG IVPB ONE
[2018-12-18 09:30] VITALS: BP 125/59
--- NOTE | 2018-12-18 09:52 | OP ---
DATE OF OPERATION: 12/18/18 - [facility] DATE OF : 49 SURGEON: Jose Sanchez MD. CAPTURE MANAGER: None. PRE-OP DIAGNOSIS: Esophageal cancer. POST-OP DIAGNOSIS: Esophageal cancer OPERATIVE PROCEDURE: Placement of left subclavian approach PowerPort. INDICATION FOR PROCEDURE: Requiring PowerPort for chemotherapy. Risks of bleeding, infection, pneumothorax explained to the patient who seemed to understand and agreed to the procedure and all questions were answered. DESCRIPTION OF PROCEDURE: The patient was taken to the operating room and placed supine. Preoperative antibiotics were given. Sedation was given by the anesthesiologist. The left chest was prepped and draped in sterile fashion. Time-out was performed indicating correct patient and correct procedure. The skin was anesthetized around the left clavicle using plain Marcaine. A needle was placed in the vein using Seldinger technique. A wire was passed through the subclavian vein towards the superior vena cava identified on fluoroscopy. Track was dilated. Split sheath was placed into the vein and the wire was removed. The catheter was placed through the split sheath and the split sheath was removed. The catheter was then tunneled under the skin to a subcutaneous pocket created below the site and connected to be PowerPort. This aspirated blood freely and flushed with heparinized saline. The wound was closed in quilt layers using 3-0 Monocryl. Dermabond was applied to the skin. He tolerated the procedure well. [id number]/[facility] #: [id number] MTDD
== END | disposition home or self-care (01) ==
LOC: OR 05:36
PROVIDERS: ATTEND Surgery
DX: C15.9 Malignant neoplasm of esophagus, unspecified (principal); E11.9 Type 2 diabetes mellitus without complications; Z79.84 Long term (current) use of oral hypoglycemic drugs; I25.10 Atherosclerotic heart disease of native coronary artery without angina pectoris; I25.2 Old myocardial infarction; I10 Essential (primary) hypertension; E78.2 Mixed hyperlipidemia; G47.33 Obstructive sleep apnea (adult) (pediatric); E78.00 Pure hypercholesterolemia, unspecified; M10.9 Gout, unspecified; J45.909 Unspecified asthma, uncomplicated; M19.90 Unspecified osteoarthritis, unspecified site; Z95.5 Presence of coronary angioplasty implant and graft
CPT/HCPCS: 71045; 76000; C1788; J0690; J1642; J2704; J3010; J3490

== ENCOUNTER 2019-02-15 16:01 | Inpatient (IN) | payer MEDICARE, BC ==
--- OUTSIDE RECORDS SUMMARY | 2019-02-15 16:15 | XMS REPORT ---
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 [place] 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, esophagus, [id number] unspecified unspecified 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 [id number] 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 [id number] without without complicatio complicatio ns ns Essential Essential Diagnosis Active Eliel (primary) (primary) 02-18 Ar hypertensio hypertensio [id number] n n Obstructive Obstructive Diagnosis Active Eliel sleep apnea sleep apnea Ar (adult) (adult) [id number] (pediatric) (pediatric) Obesity, Obesity, Diagnosis Active Eliel unspecified unspecified Ar [id number] Unspecified Unspecified Diagnosis Active Eliel osteoarthri osteoarthri Ar tis, tis, [id number] unspecified unspecified site site FCI FCI Diagnosis Active Eliel (current) (current) Ar use of oral use of oral [id number] hypoglycemi hypoglycemi c drugs c drugs 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) (current) Ar use of use of [id number] aspirin aspirin FCI FCI Diagnosis Active Eliel (current) (current) Ar use of use of [id number] anticoagula anticoagula nts nts FCI FCI Diagnosis Active Eliel (current) (current) Joyner use of use of [id number] opiate opiate analgesic analgesic Presence of Presence of Diagnosis Active Eliel coronary coronary Joyner angioplasty angioplasty [id number] implant and implant and graft graft Body mass Body mass Diagnosis Active Eliel index (BMI) index (BMI) Joyner 50.0-59.9, 50.0-59.9, [id number] adult adult Pain frequent Pain Mgmt Active 2018-02 Beth pain 0-22 (Kelly) 10:30: Lu 00 [id number] Cardio edema Cardiovasc Resolve 2018-022019-02-06 Beth ular d 0-22 10:55:00 (Kelly) 10:30: [id number] Respiratory dyspnea Respirator Active 2018-02 Beth present y 0-22 (Kelly) 10:30: [id number] Endo/Juwan diabetic Endo/Juwan Resolve 2018-022018-12-19 Beth foot care d 0-22 11:00:00 (Kelly) 10:30: [id number] Endo/Juwan anti-coagul Endo/Juwan Resolve 2018-022018-12-19 Beth ation d 0-22 11:00:00 (Kelly) therapy 10:30: [id number] Integument skin Integument Resolve 2018-022019-01-16 Beth integrity d 0-22 10:30:00 (Kelly) risk 10:30: [id number] Elimination urinary Eliminatio Resolve 2018-022019-01-16 Beth incontinenc n d 0-22 10:30:00 (Kelly) e 10:30: [id number] Neuro confusion Neuro/Emot Active 2018-02 Beth present ion 0-22 (Kelly) 10:30: [id number] Activity ADL Activity Resolve 2018-022019-02-06 Beth assistance d 0-22 10:55:00 (Kelly) required 10:30: [id number] Activity self-care Activity Resolve 2018-022019-02-06 Beth deficit d 0-22 10:55:00 (Kelly) 10:30: [id number] Safety fall risk Safety Resolve 2018-022019-01-16 Beth factor d 0-22 10:30:00 (Kelly) present 10:30: Lu [id number] Safety risk for Safety Resolve 2018-022019-01-16 Beth hospitaliza d 0-22 10:30:00 (Kelly) tion 10:30: Lu [id number] Medication oral med Meds Active 2018-02 Beth assistance 0-22 (Kelly) required 10:30: Lu [id number] Musculoskel transfer Musculoske Resolve 2018-022019-02-06 Beth etal assistance letal d 0-22 10:55:00 (Kelly) required 10:30: Lu [id number] Musculoskel requires Musculoske Resolve 2018-022019-02-06 Beth etal human letal d 0-22 10:55:00 (Kelly) assist to 10:30: Lu leave home 00 [id number] Pain knowledge/s Pain Mgmt Active 2018-02 Elroy kill 0-22 Tracy deficit: pt 12:45: [id number] 00 Pain knowledge/s Pain Mgmt Active 2018-02 Elroy kill 0-22 Tracy deficit: cg 12:45: [id number] Nutrition knowledge/s Nutrition Resolve 2018-022019-01-16 Elroy kill d 0-22 10:30:00 Tracy deficit: pt 12:45: [id number] 00 Nutrition knowledge/s Nutrition Resolve 2018-022019-01-16 Elroy kill d 0-22 10:30:00 Tracy deficit: cg 12:45: [id number] 00 Nutrition nutritional Nutrition Resolve 2018-022019-01-16 Elroy restriction d 0-22 10:30:00 Tracy s 12:45: [id number] 00 Safety knowledge/s Safety Resolve 2018-022019-01-16 Elroy kill d 0-22 10:30:00 Tracy deficit: pt 12:45: [id number] 00 Safety knowledge/s Safety Resolve 2018-022019-01-16 Elroy kill d 0-22 10:30:00 Tracy deficit: cg 12:45: [id number] 00 Diagnoses knowledge/s Diagnoses Active 2018-02 Elroy kill 0-22 Tracy deficit: pt 12:45: [id number] 00 Diagnoses knowledge/s Diagnoses Active 2018-02 Elroy kill 0-22 Tracy deficit: cg 12:45: [id number] 00 Respiratory CPAP Respirator Active 2018-02 Eliel treatments y 0-25 Ar in home 11:00: [id number] 00 Test/Treatm tests Test/Injec Resolve 2018-022019-02-06 Eliel ent ordered t/Burak d 03-04 10:55:00 Ar [id number] Infection s/s of Infection Resolve 2018-022019-01-16 Eliel infection d 03-04 10:30:00 Ar 11:00: [id number] 00 Safety can be left Safety Resolve 2018-022019-01-16 Eliel alone for d 03-04 10:30:00 Joyner only short 11:00: [id number] periods 00 Cardio hypertensio Cardiovasc Resolve 2018-022019-02-06 Eliel n ular d 04-09 10:55:00 Ar 10:55: [id number] 00 Endo/Juwan anti-coagul Endo/Juwan Active 2018-02 Eliel ation 04-09 Ar therapy 10:55: [id number] 00 Integument surgical Integument Active 2018-02 Eliel wound 04-09 Joyner present 10:55: [id number] 00 Integument skin Integument Active 2018-02 Eliel integrity 04-09 Joyner risk 10:55: [id number] 00 Neuro depressive Neuro/Emot Active 2018-02 Eliel feelings ion 04-09 Ar present 10:55: [id number] Safety knowledge/s Safety Active 2018-02 Eliel kill - Ar deficit: pt 10:55: [id number] Safety knowledge/s Safety Active 2018-02 Eliel kill 04-09 Ar deficit: cg 10:55: [id number] 00 Safety fall risk Safety Resolve 2018-022019-02-06 Eliel factor d 04-09 10:55:00 Ar present 10:55: [id number] 00 Safety risk for Safety Active 2018-02 Eliel hospitaliza 04-09 Ar tion 10:55: [id number] 00 Allergies, Adverse Reactions, Alerts This patient has no known allergies or adverse reactions. Medications Ordered Filled Start Stop Current Ordering Indication Dosage Frequency Signature Comments Components Medication Medication Date Date Medication? Clinician (SIG) Name Name metFORMIN metFORMIN 2018-02 Yes Midura Unknown Unknown 500 mg 500 mg 0-22 ,Jesús tablet tablet loratadine loratadine 2018-02 Yes Midura Unknown Unknown 10 mg 10 mg 0-22 MD,Jesús tablet tablet aspirin 81 aspirin 81 2018-02 Yes Midura Unknown Unknown mg mg 0-22 MD,Jesús tablet,esequiel tablet,esequiel yed release yed release allopurinol allopurinol 2018-02 Yes Midura Unknown Unknown 300 mg 300 mg 0-22 MD,Jesús tablet tablet metoprolol metoprolol 2018-02 Yes Midura Unknown Unknown succinate succinate 0-22 MD,Jesús ER 50 mg ER 50 mg tablet,exte tablet,exte nded nded release 24 release 24 hr hr Augmentin Augmentin 2018-02- Yes Midura Unknown Unknown 875 mg-125 875 mg-125 0-29 10-30 MD,Jesús mg tablet mg tablet Lovenox 150 Lovenox 150 2018-02- Yes Midura Unknown Unknown mg/mL mg/mL 0-22 11-25 Jesús COPPOLA subcutaneou subcutaneou s syringe s syringe omeprazole omeprazole 2018-02- Yes Midura Unknown Unknown 20 mg 20 mg 0-22 10-30 MD,Jesús capsule,del capsule,del ayed ayed release release oxyCODONE oxyCODONE 2018-02- Yes Midura Unknown Unknown 10 mg 10 mg 0-22 10-30 MD,Jesús tablet tablet rosuvastati rosuvastati 2018-02 Yes Midura Unknown Unknown n 20 mg n 20 mg 0-22 MD,Jesús tablet tablet lisinopril lisinopril 2018-02 Yes Midura Unknown Unknown 20 mg 20 mg 0-22 MD,Jesús tablet tablet lisinopril lisinopril 2018-02 Yes Midura Unknown Unknown 20 mg 20 mg 0-22 MD,Jesús tablet tablet potassium potassium 2018-02 Yes Midura Unknown Unknown chloride ER chloride ER 0-22 MD,Jesús 20 mEq 20 mEq tablet,exte tablet,exte nded nded release(par release(par t/cryst) t/cryst) omeprazole omeprazole 2018-02 Yes Bael Unknown Unknown 20 mg 20 mg 0-30 MD,Aiden capsule,del capsule,del ayed ayed release release oxyCODONE oxyCODONE 2018-02 Yes Bael Unknown Unknown 10 mg 10 mg 0-30 MD,Aiden tablet tablet Eliquis 5 Eliquis 5 2018-02 Yes Midura Unknown Unknown mg tablet mg tablet 03-15 Jesús COPPOLA Cipro 500 Cipro 500 2018-02- Yes Midura Unknown Unknown mg tablet mg tablet 03-29 Jesús COPPOLA Vital Signs Vital Name Observation Time Observation Value Comments SYSTOLIC mm[Hg] 2019-02-06 18:09:27 112 mm[Hg] mm[Hg] Method: Sit DIASTOLIC mm[Hg] 2019-02-06 18:09:27 62 mm[Hg] mm[Hg] Method: Sit PULSE 2019-02-06 18:09:27 72 /min /min RESP RATE 2019-02-06 18:09:27 20 /min /min TEMP 2019-02-06 18:09:27 97.4 [degF] Procedures This patient has no known procedures. Results This patient has no known results.
--- OUTSIDE RECORDS SUMMARY | 2019-02-15 16:15 | XMS REPORT ---
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, esophagus, [id number] unspecified unspecified 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 [id number] without without complicatio complicatio ns ns Essential Essential Diagnosis Active Eliel (primary) (primary) 02-18 Ar hypertensio hypertensio [id number] n n Obstructive Obstructive Diagnosis Active Eliel sleep apnea sleep apnea Ar (adult) (adult) [id number] (pediatric) (pediatric) Obesity, Obesity, Diagnosis Active Eliel unspecified unspecified Ar [id number] Unspecified Unspecified Diagnosis Active Eliel osteoarthri osteoarthri Ar tis, tis, [id number] unspecified unspecified site site detention detention Diagnosis Active Eliel (current) (current) Ar use of oral use of oral [id number] hypoglycemi hypoglycemi c drugs c drugs 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 Eliel (current) (current) Ar use of use of [id number] aspirin aspirin detention detention Diagnosis Active Eliel (current) (current) Ar use of use of [id number] anticoagula anticoagula nts nts detention detention Diagnosis Active Eliel (current) (current) Joyner use of use of [id number] opiate opiate analgesic analgesic Presence of Presence of Diagnosis Active Eliel coronary coronary Joyner angioplasty angioplasty [id number] implant and implant and graft graft Body mass Body mass Diagnosis Active Leiel index (BMI) index (BMI) Ar 50.0-59.9, 50.0-59.9, [id number] adult adult Pain frequent Pain Mgmt Active 2018-02 Beth pain 0-22 (Kelly) 10:30: Lu 00 [id number] Cardio edema Cardiovasc Active 2018-02 Beth ular 0-22 (Kelly) 10:30: [id number] Respiratory dyspnea Respirator Active 2018-02 Beth present y 0-22 (Kelly) 10:30: [id number] Endo/Juwan diabetic Endo/Juwan Resolve 2018-022018-12-19 Beth foot care d 0-22 11:00:00 (Kelly) 10:30: [id number] Endo/Juwan anti-coagul Endo/Juwan Resolve 2018-022018-12-19 Beth ation d 0-22 11:00:00 (Kelly) therapy 10:30: [id number] Integument skin Integument Resolve 2018-022019-01-16 Beth integrity d 0-22 10:30:00 (Kelly) risk 10:30: [id number] Elimination urinary Eliminatio Resolve 2018-022019-01-16 Beth incontinenc n d 0-22 10:30:00 (Kelly) e 10:30: [id number] Neuro confusion Neuro/Emot Active 2018-02 Beth present ion 0-22 (Kelly) 10:30: [id number] Activity ADL Activity Active 2018-02 Beth assistance 0-22 (Kelly) required 10:30: [id number] Activity self-care Activity Active 2018-02 Beth deficit 0-22 (Kelly) 10:30: [id number] Safety fall risk Safety Resolve 2018-022019-01-16 Beth factor d 0-22 10:30:00 (Kelly) present 10:30: [id number] Safety risk for Safety Resolve 2018-022019-01-16 Beth hospitaliza d 0-22 10:30:00 (Kelly) tion 10:30: Lu [id number] Medication oral med Meds Active 2018-02 Beth assistance 0-22 (Kelly) required 10:30: Lu [id number] Musculoskel transfer Musculoske Active 2018-02 Beth etal assistance letal 0-22 (Kelly) required 10:30: Lu [id number] Musculoskel requires Musculoske Active 2018-02 Beth etal human letal 0-22 (Kelly) assist to 10:30: Lu leave home 00 [id number] Pain knowledge/s Pain Mgmt Active 2018-02 Elroy kill 0-22 Tracy deficit: pt 12:45: [id number] 00 Pain knowledge/s Pain Mgmt Active 2018-02 Elroy kill 0-22 Tracy deficit: cg 12:45: [id number] 00 Nutrition knowledge/s Nutrition Resolve 2018-022019-01-16 Elroy kill d 0-22 10:30:00 Tracy deficit: pt 12:45: [id number] 00 Nutrition knowledge/s Nutrition Resolve 2018-022019-01-16 Elroy kill d 0-22 10:30:00 Tracy deficit: cg 12:45: [id number] 00 Nutrition nutritional Nutrition Resolve 2018-022019-01-16 Elroy restriction d 0-22 10:30:00 Tracy s 12:45: [id number] 00 Safety knowledge/s Safety Resolve 2018-022019-01-16 Elroy kill d 0-22 10:30:00 Tracy deficit: pt 12:45: [id number] 00 Safety knowledge/s Safety Resolve 2018-022019-01-16 Elroy kill d 0-22 10:30:00 Tracy deficit: cg 12:45: [id number] 00 Diagnoses knowledge/s Diagnoses Active 2018-02 Elroy kill 0-22 Tracy deficit: pt 12:45: [id number] 00 Diagnoses knowledge/s Diagnoses Active 2018-02 Elroy kill 0-22 Tracy deficit: cg 12:45: [id number] 00 Respiratory CPAP Respirator Active 2018-02 Eliel treatments y 0-25 Joyner in home 11:00: [id number] 00 Test/Treatm tests Test/Injec Active 2018-02 Eliel ent ordered t/Burak 1-15 Ar [id number] Infection s/s of Infection Resolve 2018-022019-01-16 Eliel infection d 03-04 10:30:00 Ar 11:00: [id number] 00 Safety can be left Safety Resolve 2018-022019-01-16 Eliel alone for d 03-04 10:30:00 Joyner only short 11:00: [id number] periods 00 Allergies, Adverse Reactions, Alerts This patient has no known allergies or adverse reactions. Medications Ordered Filled Start Stop Current Ordering Indication Dosage Frequency Signature Comments Components Medication Medication Date Date Medication? Clinician (SIG) Name Name metFORMIN metFORMIN 2018-02 Yes Midura Unknown Unknown 500 mg 500 mg 0-22 MD,Jesús tablet tablet loratadine loratadine 2018-02 Yes Midura [...] 2018-02- Yes Midura Unknown Unknown mg/mL mg/mL 0- 11- MD,Jesús subcutaneou subcutaneou s syringe s syringe omeprazole [...] Midura Unknown Unknown mg tablet mg tablet 1- MD,Jesús Cipro 500 Cipro 500 2018-02 Yes Midura Unknown Unknown mg tablet mg tablet 2-09 MD,Jesús Vital Signs Vital Name Observation Time Observation Value Comments SYSTOLIC mm[Hg] 2019-01-30 18:09:20 122 mm[Hg] mm[Hg] Method: Sit DIASTOLIC mm[Hg] 2019-01-30 18:09:20 64 mm[Hg] mm[Hg] Method: Sit PULSE 2019-01-30 18:09:20 68 /min /min RESP RATE 2019-01-30 18:09:20 16 /min /min TEMP 2019-01-30 18:09:20 97.6 [degF] Procedures This patient has no known procedures. Results This patient has no known results.
--- OUTSIDE RECORDS SUMMARY | 2019-02-15 16:15 | XMS REPORT ---
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 [id number] [place] 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, esophagus, [id number] unspecified unspecified 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 [id number] 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 [id number] without without complicatio complicatio ns ns Essential Essential Diagnosis Active Eliel (primary) (primary) 02-18 Ar hypertensio hypertensio [id number] n n Obstructive Obstructive Diagnosis Active Eliel sleep apnea sleep apnea Ar (adult) (adult) [id number] (pediatric) (pediatric) Obesity, Obesity, Diagnosis Active Eliel unspecified unspecified Ar [id number] Unspecified Unspecified Diagnosis Active Eliel osteoarthri osteoarthri Ar tis, tis, [id number] unspecified unspecified site site custodial custodial Diagnosis Active Eliel (current) (current) Ar use of oral use of oral [id number] hypoglycemi hypoglycemi c drugs c drugs custodial long term Diagnosis Active Eliel (current) (current) Ar use of use of [id number] aspirin aspirin custodial custodial Diagnosis Active Eliel (current) (current) Ar use of use of [id number] anticoagula anticoagula nts nts custodial custodial Diagnosis Active Eliel (current) (current) Joyner use of use of [id number] opiate opiate analgesic analgesic Presence of Presence of Diagnosis Active Eliel coronary coronary Joyner angioplasty angioplasty [id number] implant and implant and graft graft Body mass Body mass Diagnosis Active Eliel index (BMI) index (BMI) Joyner 50.0-59.9, 50.0-59.9, [id number] adult adult Pain frequent Pain Mgmt Active 2018-02 Beth pain 0-22 (Kelly) 10:30: Lu 00 [id number] Cardio edema Cardiovasc Resolve 2018-022019-02-06 Beht ular d 0-22 10:55:00 (Kelly) 10:30: [id number] Respiratory dyspnea Respirator Active 2018-02 Beth present y 0-22 (Kelly) 10:30: [id number] Endo/Juwan diabetic Endo/Juwan Resolve 2018-022018-12-19 Beth foot care d 0-22 11:00:00 (Kelly) 10:30: [id number] Endo/Juwan anti-coagul Endo/Juwan Resolve 2018-022018-12-19 Beth ation d 0-22 11:00:00 (Kelly) therapy 10:30: [id number] Integument skin Integument Resolve 2018-022019-01-16 Beth integrity d 0-22 10:30:00 (Kelly) risk 10:30: [id number] Elimination urinary Eliminatio Resolve 2018-022019-01-16 Beth incontinenc n d 0-22 10:30:00 (Kelly) e 10:30: [id number] Neuro confusion Neuro/Emot Active 2018-02 Beth present ion 0-22 (Kelly) 10:30: [id number] Activity ADL Activity Resolve 2018-022019-02-06 Beth assistance d 0-22 10:55:00 (Kelly) required 10:30: [id number] Activity self-care Activity Resolve 2018-022019-02-06 Beth deficit d 0-22 10:55:00 (Kelly) 10:30: [id number] Safety fall risk Safety Resolve 2018-022019-01-16 Beth factor d 0-22 10:30:00 (Kelly) present 10:30: Lu [id number] Safety risk for Safety Resolve 2018-022019-01-16 Beth hospitaliza d 0-22 10:30:00 (Kelly) tion 10:30: Lu [id number] Medication oral med Meds Active 2018-02 Beth assistance 0-22 (Kelly) required 10:30: Lu [id number] Musculoskel transfer Musculoske Resolve 2018-022019-02-06 Beth etal assistance letal d 0-22 10:55:00 (Kelly) required 10:30: Lu [id number] Musculoskel requires Musculoske Resolve 2018-022019-02-06 Beth etal human letal d 0-22 10:55:00 (Kelly) assist to 10:30: Lu leave home 00 [id number] Pain knowledge/s Pain Mgmt Active 2018-02 Elroy kill 0-22 Tracy deficit: pt 12:45: [id number] 00 Pain knowledge/s Pain Mgmt Active 2018-02 Elroy kill 0-22 Tracy deficit: cg 12:45: [id number] 00 Nutrition knowledge/s Nutrition Resolve 2018-022019-01-16 Elroy kill d 0-22 10:30:00 Tracy deficit: pt 12:45: [id number] 00 Nutrition knowledge/s Nutrition Resolve 2018-022019-01-16 Elroy kill d 0-22 10:30:00 Tracy deficit: cg 12:45: [id number] 00 Nutrition nutritional Nutrition Resolve 2018-022019-01-16 Elory restriction d 0-22 10:30:00 Tracy s 12:45: [id number] 00 Safety knowledge/s Safety Resolve 2018-022019-01-16 Elroy kill d 0-22 10:30:00 Tracy deficit: pt 12:45: [id number] 00 Safety knowledge/s Safety Resolve 2018-022019-01-16 Elroy kill d 0-22 10:30:00 Tracy deficit: cg 12:45: [id number] 00 Diagnoses knowledge/s Diagnoses Active 2018-02 Elroy kill 0-22 Tracy deficit: pt 12:45: [id number] 00 Diagnoses knowledge/s Diagnoses Active 2018-02 Elroy kill 0-22 Tracy deficit: cg 12:45: [id number] 00 Respiratory CPAP Respirator Active 2018-02 Eliel treatments y 0-25 Ar in home 11:00: [id number] 00 Test/Treatm tests Test/Injec Resolve 2018-022019-02-06 Eliel ent ordered t/Burak d 03-04 10:55:00 Ar [id number] Infection s/s of Infection Resolve 2018-022019-01-16 Eliel infection d 03-04 10:30:00 Ar 11:00: [id number] 00 Safety can be left Safety Resolve 2018-022019-01-16 Eliel alone for d 03-04 10:30:00 Joyner only short 11:00: [id number] periods 00 Cardio hypertensio Cardiovasc Resolve 2018-022019-02-06 Eliel n ular d 04-09 10:55:00 Ar 10:55: [id number] 00 Endo/Juwan anti-coagul Endo/Juwan Active 2018-02 Eliel ation 04-09 Ar therapy 10:55: [id number] 00 Integument surgical Integument Active 2018-02 Eliel wound 04-09 Joyner present 10:55: [id number] 00 Integument skin Integument Active 2018-02 Eliel integrity 04-09 Joyner risk 10:55: [id number] 00 Neuro depressive Neuro/Emot Active 2018-02 Eliel feelings ion 04-09 Ar present 10:55: [id number] 00 Safety knowledge/s Safety Active 2018-02 Eliel kill - Ar deficit: pt 10:55: [id number] 00 Safety knowledge/s Safety Active 2018-02 Eliel kill 04-09 Ar deficit: cg 10:55: [id number] 00 Safety fall risk Safety Resolve 2018-022019-02-06 Eliel factor d 04-09 10:55:00 Ar present 10:55: [id number] 00 Safety risk for Safety Active 2018-02 Eliel hospitaliza 04-09 Ar tion 10:55: [id number] 00 Allergies, Adverse Reactions, Alerts This patient [...]
--- OUTSIDE RECORDS SUMMARY | 2019-02-15 16:15 | XMS REPORT ---
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 [id number] [place] 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, esophagus, [id number] unspecified unspecified 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 [id number] 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 [id number] without without complicatio complicatio ns ns Essential Essential Diagnosis Active Eliel (primary) (primary) 02-18 Ar hypertensio hypertensio [id number] n n Obstructive Obstructive Diagnosis Active Eliel sleep apnea sleep apnea Ar (adult) (adult) [id number] (pediatric) (pediatric) Obesity, Obesity, Diagnosis Active Eliel unspecified unspecified Ar [id number] Unspecified Unspecified Diagnosis Active Eliel osteoarthri osteoarthri Ar tis, tis, [id number] unspecified unspecified site site half-way half-way Diagnosis Active Eliel (current) (current) Ar use of oral use of oral [id number] hypoglycemi hypoglycemi c drugs c drugs 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 Eliel (current) (current) Ar use of use of [id number] aspirin aspirin half-way half-way Diagnosis Active Eliel (current) (current) Ar use of use of [id number] anticoagula anticoagula nts nts half-way half-way Diagnosis Active Eliel (current) (current) Joyner use of use of [id number] opiate opiate analgesic analgesic Presence of Presence of Diagnosis Active Eliel coronary coronary Joyner angioplasty angioplasty [id number] implant and implant and graft graft Body mass Body mass Diagnosis Active Eliel index (BMI) index (BMI) Joyner 50.0-59.9, 50.0-59.9, [id number] adult adult Pain frequent Pain Mgmt Active 2018-02 Beth pain 0-22 (Kelly) 10:30: Lu 00 [id number] Cardio edema Cardiovasc Resolve 2018-022019-02-06 Beth ular d 0-22 10:55:00 (Kelly) 10:30: [id number] Respiratory dyspnea Respirator Active 2018-02 Beth present y 0-22 (Kelly) 10:30: [id number] Endo/Juwan diabetic Endo/Juwan Resolve 2018-022018-12-19 Beth foot care d 0-22 11:00:00 (Kelly) 10:30: [id number] Endo/Juwan anti-coagul Endo/Juwan Resolve 2018-022018-12-19 Beth ation d 0-22 11:00:00 (Kelly) therapy 10:30: [id number] Integument skin Integument Resolve 2018-022019-01-16 Beth integrity d 0-22 10:30:00 (Kelly) risk 10:30: [id number] Elimination urinary Eliminatio Resolve 2018-022019-01-16 Beth incontinenc n d 0-22 10:30:00 (Kelly) e 10:30: [id number] Neuro confusion Neuro/Emot Active 2018-02 Beth present ion 0-22 (Kelly) 10:30: [id number] Activity ADL Activity Resolve 2018-022019-02-06 Beth assistance d 0-22 10:55:00 (Kelly) required 10:30: [id number] Activity self-care Activity Resolve 2018-022019-02-06 Beth deficit d 0-22 10:55:00 (Kelly) 10:30: [id number] Safety fall risk Safety Resolve 2018-022019-01-16 Beth factor d 0-22 10:30:00 (Kelly) present 10:30: Lu [id number] Safety risk for Safety Resolve 2018-022019-01-16 Beth hospitaliza d 0-22 10:30:00 (Kelly) tion 10:30: Lu [id number] Medication oral med Meds Active 2018-02 Beth assistance 0-22 (Kelly) required 10:30: Lu [id number] Musculoskel transfer Musculoske Resolve 2018-022019-02-06 Beth etal assistance letal d 0-22 10:55:00 (Kelly) required 10:30: Lu [id number] Musculoskel requires Musculoske Resolve 2018-022019-02-06 Beth etal human letal d 0-22 10:55:00 (Kelly) assist to 10:30: Lu leave home 00 [id number] Pain knowledge/s Pain Mgmt Active 2018-02 Elroy kill 0-22 Tracy deficit: pt 12:45: [id number] 00 Pain knowledge/s Pain Mgmt Active 2018-02 Elroy kill 0-22 Tracy deficit: cg 12:45: [id number] 00 Nutrition knowledge/s Nutrition Resolve 2018-022019-01-16 Elroy kill d 0-22 10:30:00 Tracy deficit: pt 12:45: [id number] 00 Nutrition knowledge/s Nutrition Resolve 2018-022019-01-16 Elroy kill d 0-22 10:30:00 Tracy deficit: cg 12:45: [id number] 00 Nutrition nutritional Nutrition Resolve 2018-022019-01-16 Elroy restriction d 0-22 10:30:00 Tracy s 12:45: [id number] 00 Safety knowledge/s Safety Resolve 2018-022019-01-16 Elroy kill d 0-22 10:30:00 Tracy deficit: pt 12:45: [id number] 00 Safety knowledge/s Safety Resolve 2018-022019-01-16 Elroy kill d 0-22 10:30:00 Tracy deficit: cg 12:45: [id number] 00 Diagnoses knowledge/s Diagnoses Active 2018-02 Elroy kill 0-22 Tracy deficit: pt 12:45: [id number] 00 Diagnoses knowledge/s Diagnoses Active 2018-02 Elroy kill 0-22 Tracy deficit: cg 12:45: [id number] 00 Respiratory CPAP Respirator Active 2018-02 Eliel treatments y 0-25 Ar in home 11:00: [id number] 00 Test/Treatm tests Test/Injec Resolve 2018-022019-02-06 Eliel ent ordered t/Burak d 03-04 10:55:00 Ar [id number] Infection s/s of Infection Resolve 2018-022019-01-16 Eliel infection d 03-04 10:30:00 Ar 11:00: [id number] 00 Safety can be left Safety Resolve 2018-022019-01-16 Eleil alone for d 03-04 10:30:00 Joyner only short 11:00: [id number] periods 00 Cardio hypertensio Cardiovasc Resolve 2018-022019-02-06 Eliel n ular d 04-09 10:55:00 Ar 10:55: [id number] 00 Endo/Juwan anti-coagul Endo/Juwan Active 2018-02 Eliel ation 04-09 Ar therapy 10:55: [id number] 00 Integument surgical Integument Active 2018-02 Eliel wound 04-09 Joyner present 10:55: [id number] 00 Integument skin Integument Active 2018-02 Eliel integrity 04-09 Joyner risk 10:55: [id number] 00 Neuro depressive Neuro/Emot Active 2018-02 Eliel feelings ion 04-09 Ar present 10:55: [id number] 00 Safety knowledge/s Safety Active 2018-02 Eliel kill - Ar deficit: pt 10:55: [id number] 00 Safety knowledge/s Safety Active 2018-02 Eliel kill 04-09 rA deficit: cg 10:55: [id number] 00 Safety fall risk Safety Resolve 2018-022019-02-06 Eliel factor d 04-09 10:55:00 Ar present 10:55: [id number] 00 Safety risk for Safety Active 2018-02 Eliel hospitaliza 04-09 Ar tion 10:55: [id number] 00 Allergies, Adverse Reactions, Alerts This patient [...]
--- OUTSIDE RECORDS SUMMARY | 2019-02-15 16:15 | XMS REPORT ---
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, esophagus, [id number] unspecified unspecified 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 [id number] without without complicatio complicatio ns ns Essential Essential Diagnosis Active Eliel (primary) (primary) 02-18 Ar hypertensio hypertensio [id number] n n Obstructive Obstructive Diagnosis Active Eliel sleep apnea sleep apnea Ar (adult) (adult) [id number] (pediatric) (pediatric) Obesity, Obesity, Diagnosis Active Eliel unspecified unspecified Ar [id number] Unspecified Unspecified Diagnosis Active Eliel osteoarthri osteoarthri Ar tis, tis, [id number] unspecified unspecified site site longterm longterm Diagnosis Active Eliel (current) (current) Ar use of oral use of oral [id number] hypoglycemi hypoglycemi c drugs 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 Eliel (current) (current) Ar use of use of [id number] aspirin aspirin longterm longterm Diagnosis Active Eliel (current) (current) Ar use of use of [id number] anticoagula anticoagula nts nts longterm longterm Diagnosis Active Eliel (current) (current) Joyner use of use of [id number] opiate opiate analgesic analgesic Presence of Presence of Diagnosis Active Eliel coronary coronary Joyner angioplasty angioplasty [id number] implant and implant and graft graft Body mass Body mass Diagnosis Active Eliel index (BMI) index (BMI) Joyner 50.0-59.9, 50.0-59.9, [id number] adult adult Pain frequent Pain Mgmt Active 2018-02 Beth pain 0-22 (Kelly) 10:30: Lu 00 [id number] Cardio edema Cardiovasc Active 2018-02 Beth ular 0-22 (Kelly) 10:30: [id number] Respiratory dyspnea Respirator Active 2018-02 Beth present y 0-22 (Kelly) 10:30: [id number] Endo/Juwan diabetic Endo/Juwan Resolve 2018-022018-12-19 Beth foot care d 0-22 11:00:00 (Kelly) 10:30: [id number] Endo/Juwan anti-coagul Endo/Juwan Resolve 2018-022018-12-19 Beth ation d 0-22 11:00:00 (Kelly) therapy 10:30: [id number] Integument skin Integument Resolve 2018-022019-01-16 Beth integrity d 0-22 10:30:00 (Kelly) risk 10:30: [id number] Elimination urinary Eliminatio Resolve 2018-022019-01-16 Beth incontinenc n d 0-22 10:30:00 (Kelly) e 10:30: [id number] Neuro confusion Neuro/Emot Active 2018-02 Beth present ion 0-22 (Kelly) 10:30: [id number] Activity ADL Activity Resolve 2018-022019-02-06 Beth assistance d 0-22 10:55:00 (Kelly) required 10:30: [id number] Activity self-care Activity Resolve 2018-022019-02-06 Beth deficit d 0-22 10:55:00 (Kelly) 10:30: [id number] Safety fall risk Safety Resolve 2018-022019-01-16 Beth factor d 0-22 10:30:00 (Kelly) present 10:30: [id number] Safety risk for Safety Resolve 2018-022019-01-16 Beth hospitaliza d 0-22 10:30:00 (Kelly) tion 10:30: [id number] Medication oral med Meds Active 2018-02 Beth assistance 0-22 (Kelly) required 10:30: Lu [id number] Musculoskel transfer Musculoske Resolve 2018-022019-02-06 Beth etal assistance letal d 0-22 10:55:00 (Kelly) required 10:30: Lu [id number] Musculoskel requires Musculoske Resolve 2018-022019-02-06 Beth etal human letal d 0-22 10:55:00 (Kelly) assist to 10:30: Lu leave home 00 [id number] Pain knowledge/s Pain Mgmt Active 2018-02 Elroy kill 0-22 Tracy deficit: pt 12:45: [id number] Pain knowledge/s Pain Mgmt Active 2018-02 Elroy kill 0-22 Tracy deficit: cg 12:45: [id number] 00 Nutrition knowledge/s Nutrition Resolve 2018-022019-01-16 Elroy kill d 0-22 10:30:00 Tracy deficit: pt 12:45: [id number] 00 Nutrition knowledge/s Nutrition Resolve 2018-022019-01-16 Elroy kill d 0-22 10:30:00 Tracy deficit: cg 12:45: [id number] 00 Nutrition nutritional Nutrition Resolve 2018-022019-01-16 Elroy restriction d 0-22 10:30:00 Tracy s 12:45: [id number] 00 Safety knowledge/s Safety Resolve 2018-022019-01-16 Elroy kill d 0-22 10:30:00 Tracy deficit: pt 12:45: [id number] 00 Safety knowledge/s Safety Resolve 2018-022019-01-16 Elroy kill d 0-22 10:30:00 Tracy deficit: cg 12:45: [id number] 00 Diagnoses knowledge/s Diagnoses Active 2018-02 Elroy kill 0-22 Tracy deficit: pt 12:45: [id number] 00 Diagnoses knowledge/s Diagnoses Active 2018-02 Elroy kill 0-22 Tracy deficit: cg 12:45: [id number] 00 Respiratory CPAP Respirator Active 2018-02 Eliel treatments y 0-25 Ar in home 11:00: [id number] 00 Test/Treatm tests Test/Injec Active 2018-02 Eliel ent ordered t/Burak 03-04 Ar [id number] Infection s/s of Infection Resolve 2018-022019-01-16 Eliel infection d -15 10:30:00 Ar 11:00: [id number] 00 Safety can be left Safety Resolve 2018-022019-01-16 Eliel alone for d 03-04 10:30:00 Ar only short 11:00: [id number] periods 00 Integument surgical Integument Active 2018-02 Eliel wound - Joyner present 10:55: [id number] 00 Integument skin Integument Active 2018-02 Eliel integrity 04-09 Ar risk 10:55: [id number] 00 Neuro depressive Neuro/Emot Resolve 2018-022019-02-06 Eliel feelings ion d 04-09 10:55:00 Ar present 10:55: [id number] 00 Safety knowledge/s Safety Active 2018-02 Eliel kill - Ar deficit: pt 10:55: [id number] 00 Safety knowledge/s Safety Active 2018-02 Eliel kill - Ar deficit: cg 10:55: [id number] 00 Safety fall risk Safety Resolve 2018-022019-02-06 Eliel factor d 04-09 10:55:00 Joyner present 10:55: [id number] 00 Safety risk for Safety Active 2018-02 Eliel hospitaliza 04-09 Ar tion 10:55: [id number] 00 Allergies, Adverse Reactions, Alerts This patient [...] Midura Unknown Unknown mg/mL mg/mL 0- 11- Jesús COPPOLA subcutaneou subcutaneou s syringe s [...] Unknown Unknown mg tablet mg tablet 1- Jesús COPPOLA Cipro 500 Cipro 500 2018-02 Yes Midura Unknown Unknown mg tablet mg tablet 2- Jesús COPPOLA Vital Signs Vital Name Observation [...]
--- OUTSIDE RECORDS SUMMARY | 2019-02-15 16:15 | XMS REPORT ---
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 [id number] [place] 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, esophagus, [id number] unspecified unspecified 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 [id number] 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 [id number] without without complicatio complicatio ns ns Essential Essential Diagnosis Active Eliel (primary) (primary) 02-18 Ar hypertensio hypertensio [id number] n n Obstructive Obstructive Diagnosis Active Eliel sleep apnea sleep apnea Ar (adult) (adult) [id number] (pediatric) (pediatric) Obesity, Obesity, Diagnosis Active Eliel unspecified unspecified Ar [id number] Unspecified Unspecified Diagnosis Active Eliel osteoarthri osteoarthri Ar tis, tis, [id number] unspecified unspecified site site FDC FDC Diagnosis Active Eliel (current) (current) Ar use of oral use of oral [id number] hypoglycemi hypoglycemi c drugs c drugs 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 Eliel (current) (current) Ar use of use of [id number] aspirin aspirin FDC FDC Diagnosis Active Eliel (current) (current) Ar use of use of [id number] anticoagula anticoagula nts nts FDC FDC Diagnosis Active Eliel (current) (current) Joyner use of use of [id number] opiate opiate analgesic analgesic Presence of Presence of Diagnosis Active Eliel coronary coronary Joyner angioplasty angioplasty [id number] implant and implant and graft graft Body mass Body mass Diagnosis Active Eliel index (BMI) index (BMI) Joyner 50.0-59.9, 50.0-59.9, [id number] adult adult Pain frequent Pain Mgmt Resolve 2018-022019-02-13 Beth pain d 0-22 11:05:00 (Kelly) 10:30: Lu 00 [id number] Cardio edema Cardiovasc Resolve 2018-022019-02-06 Beth ular d 0-22 10:55:00 (Kelly) 10:30: [id number] Respiratory dyspnea Respirator Active 2018-02 Beth present y 0-22 (Kelly) 10:30: [id number] Endo/Juwan diabetic Endo/Juwan Resolve 2018-022018-12-19 Beth foot care d 0-22 11:00:00 (Kelly) 10:30: [id number] Endo/Juwan anti-coagul Endo/Juwan Resolve 2018-022018-12-19 Beth ation d 0-22 11:00:00 (Kelly) therapy 10:30: [id number] Integument skin Integument Resolve 2018-022019-01-16 Beth integrity d 0-22 10:30:00 (Kelly) risk 10:30: [id number] Elimination urinary Eliminatio Resolve 2018-022019-01-16 Beth incontinenc n d 0-22 10:30:00 (Kelly) e 10:30: [id number] Neuro confusion Neuro/Emot Active 2018-02 Beth present ion 0-22 (Kelly) 10:30: [id number] Activity ADL Activity Resolve 2018-022019-02-06 Beth assistance d 0-22 10:55:00 (Kelly) required 10:30: [id number] Activity self-care Activity Resolve 2018-022019-02-06 Beth deficit d 0-22 10:55:00 (Kelly) 10:30: [id number] Safety fall risk Safety Resolve 2018-022019-01-16 Beth factor d 0-22 10:30:00 (Kelly) present 10:30: Lu 00 [id number] Safety risk for Safety Resolve 2018-022019-01-16 Beth hospitaliza d 0-22 10:30:00 (Kelly) tion 10:30: Lu 00 [id number] Medication oral med Meds Active 2018-02 Beth assistance 0-22 (Kelly) required 10:30: Lu [id number] Musculoskel transfer Musculoske Resolve 2018-022019-02-06 Beth etal assistance letal d 0-22 10:55:00 (Kelly) required 10:30: Lu [id number] Musculoskel requires Musculoske Resolve 2018-022019-02-06 Beth etal human letal d 0-22 10:55:00 (Kelly) assist to 10:30: Lu leave home 00 [id number] Pain knowledge/s Pain Mgmt Active 2018-02 Elroy kill 0-22 Tracy deficit: pt 12:45: [id number] 00 Pain knowledge/s Pain Mgmt Active 2018-02 Elroy kill 0-22 Tracy deficit: cg 12:45: [id number] 00 Nutrition knowledge/s Nutrition Resolve 2018-022019-01-16 Elroy kill d 0-22 10:30:00 Tracy deficit: pt 12:45: [id number] 00 Nutrition knowledge/s Nutrition Resolve 2018-022019-01-16 Elroy kill d 0-22 10:30:00 Tracy deficit: cg 12:45: [id number] 00 Nutrition nutritional Nutrition Resolve 2018-022019-01-16 Elroy restriction d 0-22 10:30:00 Tracy s 12:45: [id number] 00 Safety knowledge/s Safety Resolve 2018-022019-01-16 Elroy kill d 0-22 10:30:00 Tracy deficit: pt 12:45: [id number] 00 Safety knowledge/s Safety Resolve 2018-022019-01-16 Elroy kill d 0-22 10:30:00 Tracy deficit: cg 12:45: [id number] 00 Diagnoses knowledge/s Diagnoses Active 2018-02 Elroy kill 0-22 Tracy deficit: pt 12:45: [id number] 00 Diagnoses knowledge/s Diagnoses Active 2018-02 Elroy kill 0-22 Tracy deficit: cg 12:45: [id number] 00 Respiratory CPAP Respirator Active 2018-02 Eliel treatments y 0-25 Ar in home 11:00: [id number] 00 Test/Treatm tests Test/Injec Resolve 2018-022019-02-06 Eliel ent ordered t/Burak d 03-04 10:55:00 Ar [id number] Infection s/s of Infection Resolve 2018-022019-01-16 Eliel infection d 03-04 10:30:00 Ar 11:00: [id number] 00 Safety can be left Safety Resolve 2018-022019-01-16 Eliel alone for d 03-04 10:30:00 Joyner only short 11:00: [id number] periods 00 Cardio hypertensio Cardiovasc Resolve 2018-022019-02-06 Eliel n ular d 04-09 10:55:00 Joyner 10:55: [id number] 00 Endo/Juwan anti-coagul Endo/Juwan Active 2018-02 Eliel ation - Joyner therapy 10:55: [id number] 00 Integument surgical Integument Active 2018-02 Eliel wound 2- Joyner present 10:55: [id number] 00 Integument skin Integument Active 2018-02 Eliel integrity 2- Joyner risk 10:55: [id number] 00 Neuro depressive Neuro/Emot Active 2018-02 Eliel feelings ion - Joyner present 10:55: [id number] 00 Safety knowledge/s Safety Active 2018-02 Eliel kill 2-20 Ar deficit: pt 10:55: [id number] 00 Safety knowledge/s Safety Active 2018-02 Eliel kill 2-20 Joyner deficit: cg 10:55: [id number] 00 Safety fall risk Safety Resolve 2018-022019-02-06 Eliel factor d 04-09 10:55:00 Joyner present 10:55: [id number] 00 Safety risk for Safety Active 2018-02 Eliel hospitaliza - Joyner tion 10:55: [id number] 00 Safety can be left Safety Active 2018-02 Eliel alone for 04-16 Joyner only short 11:05: [id number] periods 00 Allergies, Adverse Reactions, Alerts This [...] Midura Unknown Unknown mg/mL mg/mL 0-22 11-25 MD,Jesús subcutaneou subcutaneou s syringe s syringe [...] 1- Jesús COPPOLA Cipro 500 Cipro 500 2018-02- Yes Midura Unknown Unknown mg tablet mg tablet 03-29 12- Jesús COPPOLA Vital Signs Vital Name Observation Time Observation Value Comments SYSTOLIC mm[Hg] 2019-02-13 18:09:34 108 mm[Hg] mm[Hg] Method: Sit DIASTOLIC mm[Hg] 2019-02-13 18:09:34 60 mm[Hg] mm[Hg] Method: Sit PULSE 2019-02-13 18:09:34 60 /min /min RESP RATE 2019-02-13 18:09:34 16 /min /min TEMP 2019-02-13 18:09:34 97.5 [degF] Procedures This patient has no known procedures. Results This patient has no known results.
--- OUTSIDE RECORDS SUMMARY | 2019-02-15 16:15 | XMS REPORT ---
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 [id number] [place] 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, esophagus, [id number] unspecified unspecified 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 [id number] 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 [id number] without without complicatio complicatio ns ns Essential Essential Diagnosis Active Eliel (primary) (primary) 02-18 Ar hypertensio hypertensio [id number] n n Obstructive Obstructive Diagnosis Active Eliel sleep apnea sleep apnea Ar (adult) (adult) [id number] (pediatric) (pediatric) Obesity, Obesity, Diagnosis Active Eliel unspecified unspecified Ar [id number] Unspecified Unspecified Diagnosis Active Eliel osteoarthri osteoarthri Ar tis, tis, [id number] unspecified unspecified site site assisted assisted Diagnosis Active Eliel (current) (current) Ar use of oral use of oral [id number] hypoglycemi hypoglycemi c drugs c drugs 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 Active Eliel (current) (current) Ar use of use of [id number] aspirin aspirin assisted assisted Diagnosis Active Eliel (current) (current) Ar use of use of [id number] anticoagula anticoagula nts nts assisted assisted Diagnosis Active Eliel (current) (current) Joyner use of use of [id number] opiate opiate analgesic analgesic Presence of Presence of Diagnosis Active Eliel coronary coronary Joyner angioplasty angioplasty [id number] implant and implant and graft graft Body mass Body mass Diagnosis Active Eliel index (BMI) index (BMI) Ar 50.0-59.9, 50.0-59.9, [id number] adult adult Pain frequent Pain Mgmt Active 2018-02 Beth pain 0-22 (Kelly) 10:30: Lu 00 [id number] Cardio edema Cardiovasc Active 2018-02 Beth ular 0-22 (Kelly) 10:30: [id number] Respiratory dyspnea Respirator Active 2018-02 Beth present y 0-22 (Kelly) 10:30: [id number] Endo/Juwan diabetic Endo/Juwan Resolve 2018-022018-12-19 Beth foot care d 0-22 11:00:00 (Kelly) 10:30: [id number] Endo/Juwan anti-coagul Endo/Juwan Resolve 2018-022018-12-19 Beth ation d 0-22 11:00:00 (Kelly) therapy 10:30: [id number] Integument skin Integument Resolve 2018-022019-01-16 Beth integrity d 0-22 10:30:00 (Kelly) risk 10:30: [id number] Elimination urinary Eliminatio Resolve 2018-022019-01-16 Beth incontinenc n d 0-22 10:30:00 (Kelly) e 10:30: [id number] Neuro confusion Neuro/Emot Active 2018-02 Beth present ion 0-22 (Kelly) 10:30: [id number] Activity ADL Activity Active 2018-02 Beth assistance 0-22 (Kelly) required 10:30: [id number] Activity self-care Activity Active 2018-02 Beth deficit 0-22 (Kelly) 10:30: [id number] Safety fall risk Safety Resolve 2018-022019-01-16 Beth factor d 0-22 10:30:00 (Kelly) present 10:30: [id number] Safety risk for Safety Resolve 2018-022019-01-16 Beth hospitaliza d 0-22 10:30:00 (Kelly) tion 10:30: Lu [id number] Medication oral med Meds Active 2018-02 Beth assistance 0-22 (Kelly) required 10:30: Lu [id number] Musculoskel transfer Musculoske Active 2018-02 Beth etal assistance letal 0-22 (Kelly) required 10:30: Lu [id number] Musculoskel requires Musculoske Active 2018-02 Beth etal human letal 0-22 (Kelly) assist to 10:30: Lu leave home 00 [id number] Pain knowledge/s Pain Mgmt Active 2018-02 Elroy kill 0-22 Tracy deficit: pt 12:45: [id number] 00 Pain knowledge/s Pain Mgmt Active 2018-02 Elroy kill 0-22 Tracy deficit: cg 12:45: [id number] 00 Nutrition knowledge/s Nutrition Resolve 2018-022019-01-16 Elroy kill d 0-22 10:30:00 Tracy deficit: pt 12:45: [id number] 00 Nutrition knowledge/s Nutrition Resolve 2018-022019-01-16 Elroy kill d 0-22 10:30:00 Tracy deficit: cg 12:45: [id number] 00 Nutrition nutritional Nutrition Resolve 2018-022019-01-16 Elroy restriction d 0-22 10:30:00 Tracy s 12:45: [id number] 00 Safety knowledge/s Safety Resolve 2018-022019-01-16 Elroy kill d 0-22 10:30:00 Tracy deficit: pt 12:45: [id number] 00 Safety knowledge/s Safety Resolve 2018-022019-01-16 Elroy kill d 0-22 10:30:00 Tracy deficit: cg 12:45: [id number] 00 Diagnoses knowledge/s Diagnoses Active 2018-02 Elroy kill 0-22 Tracy deficit: pt 12:45: [id number] 00 Diagnoses knowledge/s Diagnoses Active 2018-02 Elroy kill 0-22 Tracy deficit: cg 12:45: [id number] 00 Respiratory CPAP Respirator Active 2018-02 Eliel treatments y 0-25 Joyner in home 11:00: [id number] 00 Test/Treatm tests Test/Injec Active 2018-02 Eliel ent ordered t/Burak 1-15 Ar [id number] Infection s/s of Infection Resolve 2018-022019-01-16 Eliel infection d 03-04 10:30:00 Ar 11:00: [id number] 00 Safety can be left Safety Resolve 2018-022019-01-16 Eliel alone for d 03-04 10:30:00 Joyner only short 11:00: [id number] periods 00 Allergies, Adverse Reactions, Alerts This [...]
--- OUTSIDE RECORDS SUMMARY | 2019-02-15 16:15 | XMS REPORT ---
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, esophagus, [id number] unspecified unspecified 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 [id number] without without complicatio complicatio ns ns Essential Essential Diagnosis Active Eliel (primary) (primary) 02-18 Ar hypertensio hypertensio [id number] n n Obstructive Obstructive Diagnosis Active Eliel sleep apnea sleep apnea Ar (adult) (adult) [id number] (pediatric) (pediatric) Obesity, Obesity, Diagnosis Active Eliel unspecified unspecified Ar [id number] Unspecified Unspecified Diagnosis Active Eliel osteoarthri osteoarthri Ar tis, tis, [id number] unspecified unspecified site site retirement 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 Diagnosis Active Eliel (current) (current) Ar use of oral use of oral [id number] hypoglycemi 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 c drugs 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) (current) Ar use of use of [id number] aspirin aspirin retirement retirement Diagnosis Active Eliel (current) (current) Ar use of use of [id number] anticoagula anticoagula nts nts retirement retirement Diagnosis Active Eliel (current) (current) Joyner use of use of [id number] opiate opiate analgesic analgesic Presence of Presence of Diagnosis Active Eliel coronary coronary Joyner angioplasty angioplasty [id number] implant and implant and graft graft Body mass Body mass Diagnosis Active Eliel index (BMI) index (BMI) Joyner 50.0-59.9, 50.0-59.9, [id number] adult adult Pain frequent Pain Mgmt Active 2018-02 Beth pain 0-22 (Kelly) 10:30: Lu 00 [id number] Cardio edema Cardiovasc Resolve 2018-022019-02-06 Beth ular d 0-22 10:55:00 (Kelly) 10:30: [id number] Respiratory dyspnea Respirator Active 2018-02 Beth present y 0-22 (Kelly) 10:30: [id number] Endo/Juwan diabetic Endo/Juwan Resolve 2018-022018-12-19 Beth foot care d 0-22 11:00:00 (Kelly) 10:30: [id number] Endo/Juwan anti-coagul Endo/Juwan Resolve 2018-022018-12-19 Beth ation d 0-22 11:00:00 (Kelly) therapy 10:30: [id number] Integument skin Integument Resolve 2018-022019-01-16 Beth integrity d 0-22 10:30:00 (Kelly) risk 10:30: [id number] Elimination urinary Eliminatio Resolve 2018-022019-01-16 Beth incontinenc n d 0-22 10:30:00 (Kelly) e 10:30: [id number] Neuro confusion Neuro/Emot Active 2018-02 Beth present ion 0-22 (Kelly) 10:30: [id number] Activity ADL Activity Resolve 2018-022019-02-06 Beth assistance d 0-22 10:55:00 (Kelly) required 10:30: [id number] Activity self-care Activity Resolve 2018-022019-02-06 Beth deficit d 0-22 10:55:00 (Kelly) 10:30: [id number] Safety fall risk Safety Resolve 2018-022019-01-16 Beth factor d 0-22 10:30:00 (Kelly) present 10:30: Lu [id number] Safety risk for Safety Resolve 2018-022019-01-16 Beth hospitaliza d 0-22 10:30:00 (Kelly) tion 10:30: Ul [id number] Medication oral med Meds Active 2018-02 Beth assistance 0-22 (Kelly) required 10:30: Lu [id number] Musculoskel transfer Musculoske Resolve 2018-022019-02-06 Beth etal assistance letal d 0-22 10:55:00 (Kelly) required 10:30: Lu [id number] Musculoskel requires Musculoske Resolve 2018-022019-02-06 Beth etal human letal d 0-22 10:55:00 (Kelly) assist to 10:30: Lu leave home 00 [id number] Pain knowledge/s Pain Mgmt Active 2018-02 Elroy kill 0-22 Tracy deficit: pt 12:45: [id number] 00 Pain knowledge/s Pain Mgmt Active 2018-02 Elroy kill 0-22 Tracy deficit: cg 12:45: [id number] 00 Nutrition knowledge/s Nutrition Resolve 2018-022019-01-16 Elroy kill d 0-22 10:30:00 Tracy deficit: pt 12:45: [id number] 00 Nutrition knowledge/s Nutrition Resolve 2018-022019-01-16 Elroy kill d 0-22 10:30:00 Tracy deficit: cg 12:45: [id number] 00 Nutrition nutritional Nutrition Resolve 2018-022019-01-16 Elroy restriction d 0-22 10:30:00 Tracy s 12:45: [id number] 00 Safety knowledge/s Safety Resolve 2018-022019-01-16 Elroy kill d 0-22 10:30:00 Tracy deficit: pt 12:45: [id number] 00 Safety knowledge/s Safety Resolve 2018-022019-01-16 Elroy kill d 0-22 10:30:00 Tracy deficit: cg 12:45: [id number] 00 Diagnoses knowledge/s Diagnoses Active 2018-02 Elroy kill 0-22 Tracy deficit: pt 12:45: [id number] 00 Diagnoses knowledge/s Diagnoses Active 2018-02 Elroy kill 0-22 Tracy deficit: cg 12:45: [id number] 00 Respiratory CPAP Respirator Active 2018-02 Eliel treatments y 0-25 Ar in home 11:00: [id number] 00 Test/Treatm tests Test/Injec Resolve 2018-022019-02-06 Eliel ent ordered t/Burak d 03-04 10:55:00 Ar [id number] Infection s/s of Infection Resolve 2018-022019-01-16 Eliel infection d 03-04 10:30:00 Ar 11:00: [id number] 00 Safety can be left Safety Resolve 2018-022019-01-16 Eliel alone for d 03-04 10:30:00 Joyner only short 11:00: [id number] periods 00 Cardio hypertensio Cardiovasc Resolve 2018-022019-02-06 Eliel n ular d 04-09 10:55:00 Ar 10:55: [id number] 00 Endo/Juwan anti-coagul Endo/Juwan Active 2018-02 Eliel ation 04-09 Ar therapy 10:55: [id number] 00 Integument surgical Integument Active 2018-02 Eliel wound 04-09 Joyner present 10:55: [id number] 00 Integument skin Integument Active 2018-02 Eliel integrity 04-09 Joyner risk 10:55: [id number] 00 Neuro depressive Neuro/Emot Active 2018-02 Eliel feelings ion 04-09 Ar present 10:55: [id number] 00 Safety knowledge/s Safety Active 2018-02 Eliel kill - Ar deficit: pt 10:55: [id number] 00 Safety knowledge/s Safety Active 2018-02 Eliel kill 04-09 Ar deficit: cg 10:55: [id number] 00 Safety fall risk Safety Resolve 2018-022019-02-06 Eliel factor d 04-09 10:55:00 Ar present 10:55: [id number] 00 Safety risk for Safety Active 2018-02 Eliel hospitaliza 04-09 Ar tion 10:55: [id number] 00 Allergies, Adverse Reactions, Alerts This patient [...]
--- OUTSIDE RECORDS SUMMARY | 2019-02-15 16:15 | XMS REPORT ---
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 [id number] [place] 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, esophagus, [id number] unspecified unspecified 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 [id number] 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 [id number] without without complicatio complicatio ns ns Essential Essential Diagnosis Active Eliel (primary) (primary) 02-18 Ar hypertensio hypertensio [id number] n n Obstructive Obstructive Diagnosis Active Eliel sleep apnea sleep apnea Ar (adult) (adult) [id number] (pediatric) (pediatric) Obesity, Obesity, Diagnosis Active Eliel unspecified unspecified Ar [id number] Unspecified Unspecified Diagnosis Active Eliel osteoarthri osteoarthri Ar tis, tis, [id number] unspecified unspecified site site detention detention Diagnosis Active Eliel (current) (current) Ar use of oral use of oral [id number] hypoglycemi hypoglycemi c drugs c 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) (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) Ar use of use of [id number] aspirin aspirin detention detention Diagnosis Active Eliel (current) (current) Ar use of use of [id number] anticoagula anticoagula nts nts detention detention Diagnosis Active Eliel (current) (current) Joyner use of use of [id number] opiate opiate analgesic analgesic Presence of Presence of Diagnosis Active Eliel coronary coronary Joyner angioplasty angioplasty [id number] implant and implant and graft graft Body mass Body mass Diagnosis Active Eliel index (BMI) index (BMI) Joyner 50.0-59.9, 50.0-59.9, [id number] adult adult Pain frequent Pain Mgmt Resolve 2018-022019-02-13 Beth pain d 0-22 11:05:00 (Kelly) 10:30: Lu 00 [id number] Cardio edema Cardiovasc Resolve 2018-022019-02-06 Beth ular d 0-22 10:55:00 (Kelly) 10:30: [id number] Respiratory dyspnea Respirator Active 2018-02 Beth present y 0-22 (Kelly) 10:30: [id number] Endo/Juwan diabetic Endo/Juwan Resolve 2018-022018-12-19 Beth foot care d 0-22 11:00:00 (Kelly) 10:30: [id number] Endo/Juwan anti-coagul Endo/Juwan Resolve 2018-022018-12-19 Beth ation d 0-22 11:00:00 (Kelly) therapy 10:30: [id number] Integument skin Integument Resolve 2018-022019-01-16 Beth integrity d 0-22 10:30:00 (Kelly) risk 10:30: [id number] Elimination urinary Eliminatio Resolve 2018-022019-01-16 Beth incontinenc n d 0-22 10:30:00 (Kelly) e 10:30: [id number] Neuro confusion Neuro/Emot Active 2018-02 Beth present ion 0-22 (Kelly) 10:30: [id number] Activity ADL Activity Resolve 2018-022019-02-06 Beth assistance d 0-22 10:55:00 (Kelly) required 10:30: [id number] Activity self-care Activity Resolve 2018-022019-02-06 Beth deficit d 0-22 10:55:00 (Kelly) 10:30: [id number] Safety fall risk Safety Resolve 2018-022019-01-16 Beth factor d 0-22 10:30:00 (Kelly) present 10:30: Lu 00 [id number] Safety risk for Safety Resolve 2018-022019-01-16 Beth hospitaliza d 0-22 10:30:00 (Kelly) tion 10:30: Lu 00 [id number] Medication oral med Meds Active 2018-02 Beth assistance 0-22 (Kelly) required 10:30: Lu [id number] Musculoskel transfer Musculoske Resolve 2018-022019-02-06 Beth etal assistance letal d 0-22 10:55:00 (Kelly) required 10:30: Lu [id number] Musculoskel requires Musculoske Resolve 2018-022019-02-06 Beth etal human letal d 0-22 10:55:00 (Kelly) assist to 10:30: Lu leave home 00 [id number] Pain knowledge/s Pain Mgmt Active 2018-02 Elroy kill 0-22 Tracy deficit: pt 12:45: [id number] 00 Pain knowledge/s Pain Mgmt Active 2018-02 Elroy kill 0-22 Tracy deficit: cg 12:45: [id number] 00 Nutrition knowledge/s Nutrition Resolve 2018-022019-01-16 Elroy kill d 0-22 10:30:00 Tracy deficit: pt 12:45: [id number] 00 Nutrition knowledge/s Nutrition Resolve 2018-022019-01-16 Elroy kill d 0-22 10:30:00 Tracy deficit: cg 12:45: [id number] 00 Nutrition nutritional Nutrition Resolve 2018-022019-01-16 Elroy restriction d 0-22 10:30:00 Tracy s 12:45: [id number] 00 Safety knowledge/s Safety Resolve 2018-022019-01-16 Elroy kill d 0-22 10:30:00 Tracy deficit: pt 12:45: [id number] 00 Safety knowledge/s Safety Resolve 2018-022019-01-16 Elroy kill d 0-22 10:30:00 Tracy deficit: cg 12:45: [id number] 00 Diagnoses knowledge/s Diagnoses Active 2018-02 Elroy kill 0-22 Tracy deficit: pt 12:45: [id number] 00 Diagnoses knowledge/s Diagnoses Active 2018-02 Elroy kill 0-22 Tracy deficit: cg 12:45: [id number] 00 Respiratory CPAP Respirator Active 2018-02 Eliel treatments y 0-25 Ar in home 11:00: [id number] 00 Test/Treatm tests Test/Injec Resolve 2018-022019-02-06 Eliel ent ordered t/Burak d 03-04 10:55:00 rA [id number] Infection s/s of Infection Resolve 2018-022019-01-16 Eliel infection d 03-04 10:30:00 Ar 11:00: [id number] 00 Safety can be left Safety Resolve 2018-022019-01-16 Eliel alone for d 03-04 10:30:00 Joyner only short 11:00: [id number] periods 00 Cardio hypertensio Cardiovasc Resolve 2018-022019-02-06 Eliel n ular d 04-09 10:55:00 Joyner 10:55: [id number] 00 Endo/Juwan anti-coagul Endo/Juwan Active 2018-02 Eliel ation - Joyner therapy 10:55: [id number] 00 Integument surgical Integument Active 2018-02 Eliel wound 2- Joyner present 10:55: [id number] 00 Integument skin Integument Active 2018-02 Eliel integrity 2- Joyner risk 10:55: [id number] 00 Neuro depressive Neuro/Emot Active 2018-02 Eliel feelings ion - Joyner present 10:55: [id number] 00 Safety knowledge/s Safety Active 2018-02 Eliel kill 2-20 Ar deficit: pt 10:55: [id number] 00 Safety knowledge/s Safety Active 2018-02 Eliel kill 2-20 Joyner deficit: cg 10:55: [id number] 00 Safety fall risk Safety Resolve 2018-022019-02-06 Eliel factor d 04-09 10:55:00 Joyner present 10:55: [id number] 00 Safety risk for Safety Active 2018-02 Eliel hospitaliza - Joyner tion 10:55: [id number] 00 Safety can be left Safety Active 2018-02 Eliel alone for 04-16 Joyner only short 11:05: [id number] periods 00 Allergies, Adverse Reactions, Alerts This [...]
--- OUTSIDE RECORDS SUMMARY | 2019-02-15 16:15 | XMS REPORT ---
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 [id number] [place] 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, esophagus, [id number] unspecified unspecified 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 [id number] 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 [id number] without without complicatio complicatio ns ns Essential Essential Diagnosis Active Eliel (primary) (primary) 02-18 Ar hypertensio hypertensio [id number] n n Obstructive Obstructive Diagnosis Active Eliel sleep apnea sleep apnea Ar (adult) (adult) [id number] (pediatric) (pediatric) Obesity, Obesity, Diagnosis Active Eliel unspecified unspecified Ar [id number] Unspecified Unspecified Diagnosis Active Eliel osteoarthri osteoarthri Ar tis, tis, [id number] unspecified unspecified site site 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 Diagnosis Active Eliel (current) (current) Ar use of oral use of oral [id number] hypoglycemi hypoglycemi c drugs c drugs 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 (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) (current) Ar use of use of [id number] aspirin aspirin 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 Diagnosis Active Eliel (current) (current) Ar use of use of [id number] anticoagula anticoagula nts nts 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 Diagnosis Active Eliel (current) (current) Joyner use of use of [id number] opiate opiate analgesic analgesic Presence of Presence of Diagnosis Active Eliel coronary coronary Joyner angioplasty angioplasty [id number] implant and implant and graft graft Body mass Body mass Diagnosis Active Eliel index (BMI) index (BMI) Ar 50.0-59.9, 50.0-59.9, [id number] adult adult Pain frequent Pain Mgmt Active 2018-02 Beth pain 0-22 (Kelly) 10:30: Lu 00 [id number] Cardio edema Cardiovasc Active 2018-02 Beth ular 0-22 (Kelly) 10:30: [id number] Respiratory dyspnea Respirator Active 2018-02 Beth present y 0-22 (Kelly) 10:30: [id number] Endo/Juwan diabetic Endo/Juwan Resolve 2018-022018-12-19 Beth foot care d 0-22 11:00:00 (Kelly) 10:30: [id number] Endo/Juwan anti-coagul Endo/Juwan Resolve 2018-022018-12-19 Beth ation d 0-22 11:00:00 (Kelly) therapy 10:30: [id number] Integument skin Integument Resolve 2018-022019-01-16 Beth integrity d 0-22 10:30:00 (Kelly) risk 10:30: [id number] Elimination urinary Eliminatio Resolve 2018-022019-01-16 Beth incontinenc n d 0-22 10:30:00 (Kelly) e 10:30: [id number] Neuro confusion Neuro/Emot Active 2018-02 Beth present ion 0-22 (Kelly) 10:30: [id number] Activity ADL Activity Active 2018-02 Beth assistance 0-22 (Kelly) required 10:30: [id number] Activity self-care Activity Active 2018-02 Beth deficit 0-22 (Kelly) 10:30: [id number] Safety fall risk Safety Resolve 2018-022019-01-16 Beth factor d 0-22 10:30:00 (Kelly) present 10:30: [id number] Safety risk for Safety Resolve 2018-022019-01-16 Beth hospitaliza d 0-22 10:30:00 (Kelly) tion 10:30: Lu [id number] Medication oral med Meds Active 2018-02 Beth assistance 0-22 (Kelly) required 10:30: Lu [id number] Musculoskel transfer Musculoske Active 2018-02 Beth etal assistance letal 0-22 (Kelly) required 10:30: Lu [id number] Musculoskel requires Musculoske Active 2018-02 Beth etal human letal 0-22 (Kelly) assist to 10:30: Lu leave home 00 [id number] Pain knowledge/s Pain Mgmt Active 2018-02 Elroy kill 0-22 Tracy deficit: pt 12:45: [id number] 00 Pain knowledge/s Pain Mgmt Active 2018-02 Elroy kill 0-22 Tracy deficit: cg 12:45: [id number] 00 Nutrition knowledge/s Nutrition Resolve 2018-022019-01-16 Elroy kill d 0-22 10:30:00 Tracy deficit: pt 12:45: [id number] 00 Nutrition knowledge/s Nutrition Resolve 2018-022019-01-16 Elroy kill d 0-22 10:30:00 Tracy deficit: cg 12:45: [id number] 00 Nutrition nutritional Nutrition Resolve 2018-022019-01-16 Elroy restriction d 0-22 10:30:00 Tracy s 12:45: [id number] 00 Safety knowledge/s Safety Resolve 2018-022019-01-16 Elroy kill d 0-22 10:30:00 Tracy deficit: pt 12:45: [id number] 00 Safety knowledge/s Safety Resolve 2018-022019-01-16 Elroy kill d 0-22 10:30:00 Tracy deficit: cg 12:45: [id number] 00 Diagnoses knowledge/s Diagnoses Active 2018-02 Elroy kill 0-22 Tracy deficit: pt 12:45: [id number] 00 Diagnoses knowledge/s Diagnoses Active 2018-02 Elroy kill 0-22 Tracy deficit: cg 12:45: [id number] 00 Respiratory CPAP Respirator Active 2018-02 Eliel treatments y 0-25 Joyner in home 11:00: [id number] 00 Test/Treatm tests Test/Injec Active 2018-02 Eliel ent ordered t/Burak 1-15 Ar [id number] Infection s/s of Infection Resolve 2018-022019-01-16 Eliel infection d 03-04 10:30:00 Joyner 11:00: [id number] 00 Safety can be left Safety Resolve 2018-022019-01-16 Eliel alone for d 03-04 10:30:00 Joyner only short 11:00: [id number] periods 00 Integument surgical Integument Active 2018-02 Eliel wound -20 Joyner present 10:55: [id number] 00 Integument skin Integument Active 2018-02 Eliel integrity 2-20 Joyner risk 10:55: [id number] 00 Safety knowledge/s Safety Active 2018-02 Eliel kill - Joyner deficit: pt 10:55: [id number] 00 Safety knowledge/s Safety Active 2018-02 Eliel kill - Ar deficit: cg 10:55: [id number] 00 Safety fall risk Safety Active 2018-02 Eliel factor - Ar present 10:55: [id number] 00 Safety risk for Safety Active 2018-02 Eliel hospitaliza - Ar tion 10:55: [id number] 00 Allergies, Adverse Reactions, Alerts This patient [...] Midura Unknown Unknown 875 mg-125 875 mg-125 0- 10-30 MD,Jesús mg tablet mg tablet Lovenox [...] Midura Unknown Unknown mg tablet mg tablet 1-26 Jesús COPPOLA Cipro 500 Cipro 500 2018-02 Yes Midura Unknown Unknown mg tablet mg tablet 2-09 Jesús COPPOLA Vital Signs Vital Name Observation [...]
--- OUTSIDE RECORDS SUMMARY | 2019-02-15 16:15 | XMS REPORT ---
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 [id number] [place] 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, esophagus, [id number] unspecified unspecified 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 [id number] 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 [id number] without without complicatio complicatio ns ns I10 I10 Diagnosis Active Eliel 02-18 Ar [id number] Pain frequent Pain Mgmt Active 2018-02 Beth pain 0-22 (Kelly) 10:30: Lu 00 [id number] Cardio edema Cardiovasc Active 2018-02 Beth ular 0-22 (Kelly) 10:30: Lu 00 [id number] Respiratory dyspnea Respirator Active 2018-02 Beth present y 0-22 (Kelly) 10:30: Lu [id number] Endo/Juwan diabetic Endo/Juwan Resolve 2018-022018-12-19 Beth foot care d 0-22 11:00:00 (Kelly) 10:30: Lu [id number] Endo/Juwan anti-coagul Endo/Juwan Resolve 2018-022018-12-19 Beth ation d 0-22 11:00:00 (Kelly) therapy 10:30: [id number] Integument skin Integument Resolve 2018-022019-01-16 Beth integrity d 0-22 10:30:00 (Kelly) risk 10:30: [id number] Elimination urinary Eliminatio Resolve 2018-022019-01-16 Beth incontinenc n d 0-22 10:30:00 (Kelly) e 10:30: [id number] Neuro confusion Neuro/Emot Active 2018-02 Beth present ion 0-22 (Kelly) 10:30: [id number] Activity ADL Activity Active 2018-02 Beth assistance 0-22 (Kelly) required 10:30: [id number] Activity self-care Activity Active 2018-02 Beth deficit 0-22 (Kelly) 10:30: [id number] Safety fall risk Safety Resolve 2018-022019-01-16 Beth factor d 0-22 10:30:00 (Kelly) present 10:30: [id number] Safety risk for Safety Resolve 2018-022019-01-16 Beth hospitaliza d 0-22 10:30:00 (Kelly) tion 10:30: [id number] Medication oral med Meds Active 2018-02 Beth assistance 0-22 (Kelly) required 10:30: [id number] Musculoskel transfer Musculoske Active 2018-02 Beth etal assistance letal 0-22 (Kelly) required 10:30: [id number] Musculoskel requires Musculoske Active 2018-02 Beth etal human letal 0-22 (Kelly) assist to 10:30: Lu leave home 00 [id number] Pain knowledge/s Pain Mgmt Active 2018-02 Elroy kill 0-22 Tracy deficit: pt 12:45: [id number] 00 Pain knowledge/s Pain Mgmt Active 2018-02 Elroy kill 0-22 Tracy deficit: cg 12:45: [id number] 00 Nutrition knowledge/s Nutrition Resolve 2018-022019-01-16 Elroy kill d 0-22 10:30:00 Tracy deficit: pt 12:45: [id number] 00 Nutrition knowledge/s Nutrition Resolve 2018-022019-01-16 Elroy kill d 0-22 10:30:00 Tracy deficit: cg 12:45: [id number] 00 Nutrition nutritional Nutrition Resolve 2018-022019-01-16 Elroy restriction d 0-22 10:30:00 Tracy s 12:45: [id number] 00 Safety knowledge/s Safety Resolve 2018-022019-01-16 Elroy kill d 0-22 10:30:00 Tracy deficit: pt 12:45: [id number] 00 Safety knowledge/s Safety Resolve 2018-022019-01-16 Elroy kill d 0-22 10:30:00 Tracy deficit: cg 12:45: [id number] 00 Diagnoses knowledge/s Diagnoses Active 2018-02 Elroy kill 0-22 Tracy deficit: pt 12:45: [id number] 00 Diagnoses knowledge/s Diagnoses Active 2018-02 Elroy kill 0-22 Tracy deficit: cg 12:45: [id number] 00 Respiratory CPAP Respirator Active 2018-02 Eliel treatments y 0-25 Ar in home 11:00: [id number] 00 Test/Treatm tests Test/Injec Active 2018-02 Eliel ent ordered t/Burak 1-15 Joyner [id number] Infection s/s of Infection Resolve 2018-022019-01-16 Eliel infection d 1-15 10:30:00 Ar 11:00: [id number] 00 Safety can be left Safety Resolve 2018-022019-01-16 Eliel alone for d 1-15 10:30:00 Joyner only short 11:00: [id number] periods 00 Allergies, Adverse Reactions, Alerts This [...]
--- OUTSIDE RECORDS SUMMARY | 2019-02-15 16:15 | XMS REPORT ---
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, esophagus, [id number] unspecified unspecified 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 [id number] without without complicatio complicatio ns ns Essential Essential Diagnosis Active Eliel (primary) (primary) 02-18 Ar hypertensio hypertensio [id number] n n Obstructive Obstructive Diagnosis Active Eliel sleep apnea sleep apnea Ar (adult) (adult) [id number] (pediatric) (pediatric) Obesity, Obesity, Diagnosis Active Eliel unspecified unspecified Ar [id number] Unspecified Unspecified Diagnosis Active Eliel osteoarthri osteoarthri Ar tis, tis, [id number] unspecified unspecified site site assisted assisted Diagnosis Active Eliel (current) (current) Ar use of oral use of oral [id number] hypoglycemi hypoglycemi c drugs c drugs assisted 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 manager Diagnosis Active Eliel (current) (current) Ar use of use of [id number] aspirin aspirin assisted assisted Diagnosis Active Eliel (current) (current) Ar use of use of [id number] anticoagula anticoagula nts nts assisted assisted Diagnosis Active Eliel (current) (current) Joyner use of use of [id number] opiate opiate analgesic analgesic Presence of Presence of Diagnosis Active Eliel coronary coronary Joyner angioplasty angioplasty [id number] implant and implant and graft graft Body mass Body mass Diagnosis Active Eliel index (BMI) index (BMI) Ar 50.0-59.9, 50.0-59.9, [id number] adult adult Pain frequent Pain Mgmt Active 2018-02 Beth pain 0-22 (Kelly) 10:30: Lu 00 [id number] Cardio edema Cardiovasc Active 2018-02 Beth ular 0-22 (Kelly) 10:30: [id number] Respiratory dyspnea Respirator Active 2018-02 Beth present y 0-22 (Kelly) 10:30: [id number] Endo/Juwan diabetic Endo/Juwan Resolve 2018-022018-12-19 Beth foot care d 0-22 11:00:00 (Kelly) 10:30: [id number] Endo/Juwan anti-coagul Endo/Juwan Resolve 2018-022018-12-19 Beth ation d 0-22 11:00:00 (Kelly) therapy 10:30: [id number] Integument skin Integument Resolve 2018-022019-01-16 Beth integrity d 0-22 10:30:00 (Kelly) risk 10:30: [id number] Elimination urinary Eliminatio Resolve 2018-022019-01-16 Beth incontinenc n d 0-22 10:30:00 (Kelly) e 10:30: [id number] Neuro confusion Neuro/Emot Active 2018-02 Beth present ion 0-22 (Kelly) 10:30: [id number] Activity ADL Activity Active 2018-02 Beth assistance 0-22 (Kelly) required 10:30: [id number] Activity self-care Activity Active 2018-02 Beth deficit 0-22 (Kelly) 10:30: [id number] Safety fall risk Safety Resolve 2018-022019-01-16 Beth factor d 0-22 10:30:00 (Kelly) present 10:30: [id number] Safety risk for Safety Resolve 2018-022019-01-16 Beth hospitaliza d 0-22 10:30:00 (Kelly) tion 10:30: Lu [id number] Medication oral med Meds Active 2018-02 Beth assistance 0-22 (Kelly) required 10:30: Lu [id number] Musculoskel transfer Musculoske Active 2018-02 Beth etal assistance letal 0-22 (Kelly) required 10:30: Lu [id number] Musculoskel requires Musculoske Active 2018-02 Beth etal human letal 0-22 (Kelly) assist to 10:30: Lu leave home 00 [id number] Pain knowledge/s Pain Mgmt Active 2018-02 Elroy kill 0-22 Tracy deficit: pt 12:45: [id number] 00 Pain knowledge/s Pain Mgmt Active 2018-02 Elroy kill 0-22 Tracy deficit: cg 12:45: [id number] 00 Nutrition knowledge/s Nutrition Resolve 2018-022019-01-16 Elroy kill d 0-22 10:30:00 Tracy deficit: pt 12:45: [id number] 00 Nutrition knowledge/s Nutrition Resolve 2018-022019-01-16 Elroy kill d 0-22 10:30:00 Tracy deficit: cg 12:45: [id number] 00 Nutrition nutritional Nutrition Resolve 2018-022019-01-16 Elroy restriction d 0-22 10:30:00 Tracy s 12:45: [id number] 00 Safety knowledge/s Safety Resolve 2018-022019-01-16 Elroy kill d 0-22 10:30:00 Tracy deficit: pt 12:45: [id number] 00 Safety knowledge/s Safety Resolve 2018-022019-01-16 Elroy kill d 0-22 10:30:00 Tracy deficit: cg 12:45: [id number] 00 Diagnoses knowledge/s Diagnoses Active 2018-02 Elroy kill 0-22 Tracy deficit: pt 12:45: [id number] 00 Diagnoses knowledge/s Diagnoses Active 2018-02 Elroy kill 0-22 Tracy deficit: cg 12:45: [id number] 00 Respiratory CPAP Respirator Active 2018-02 Eliel treatments y 0-25 Joyner in home 11:00: [id number] 00 Test/Treatm tests Test/Injec Active 2018-02 Eliel ent ordered t/Burak 1-15 Ar [id number] Infection s/s of Infection Resolve 2018-022019-01-16 Eliel infection d 03-04 10:30:00 Ar 11:00: [id number] 00 Safety can be left Safety Resolve 2018-022019-01-16 Eliel alone for d 03-04 10:30:00 Joyner only short 11:00: [id number] periods 00 Allergies, Adverse Reactions, Alerts This [...]
--- OUTSIDE RECORDS SUMMARY | 2019-02-15 16:16 | XMS REPORT ---
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 [id number] [place] 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, esophagus, [id number] unspecified unspecified 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 [id number] 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 [id number] without without complicatio complicatio ns ns I10 I10 Diagnosis Active Eliel 02-18 Ar [id number] Pain frequent Pain Mgmt Active 2018-02 Beth pain 0-22 (Kelly) 10:30: Lu 00 [id number] Cardio edema Cardiovasc Active 2018-02 Beth ular 0-22 (Kelly) 10:30: Lu 00 [id number] Respiratory dyspnea Respirator Active 2018-02 Beth present y 0-22 (Kelly) 10:30: Lu [id number] Endo/Juwan diabetic Endo/Juwan Resolve 2018-022018-12-19 Beth foot care d 0-22 11:00:00 (Kelly) 10:30: Lu [id number] Endo/Juwan anti-coagul Endo/Juwan Resolve 2018-022018-12-19 Beth ation d 0-22 11:00:00 (Kelly) therapy 10:30: [id number] Integument skin Integument Active 2018-02 Beth integrity 0-22 (Kelly) risk 10:30: [id number] Elimination urinary Eliminatio Active 2018-02 Beth incontinenc n 0-22 (Kelly) e 10:30: [id number] Neuro confusion Neuro/Emot Active 2018-02 Beth present ion 0-22 (Kelly) 10:30: [id number] Activity ADL Activity Active 2018-02 Beth assistance 0-22 (Kelly) required 10:30: [id number] Activity self-care Activity Active 2018-02 Beth deficit 0-22 (Kelly) 10:30: [id number] Safety fall risk Safety Active 2018-02 Beth factor 0-22 (Kelly) present 10:30: [id number] Safety risk for Safety Active 2018-02 Beth hospitaliza 0-22 (Kelly) tion 10:30: [id number] Medication oral med Meds Active 2018-02 Beth assistance 0-22 (Kelly) required 10:30: [id number] Musculoskel transfer Musculoske Active 2018-02 Beth etal assistance letal 0-22 (Kelly) required 10:30: [id number] Musculoskel requires Musculoske Active 2018-02 Beth etal human letal 0-22 (Kelly) assist to 10:30: Lu leave home 00 [id number] Pain knowledge/s Pain Mgmt Active 2018-02 Elroy kill 0-22 Tracy deficit: pt 12:45: [id number] 00 Pain knowledge/s Pain Mgmt Active 2018-02 Elroy kill 0-22 Tracy deficit: cg 12:45: [id number] 00 Nutrition knowledge/s Nutrition Active 2018-02 Elroy kill 0-22 Tarcy deficit: pt 12:45: [id number] 00 Nutrition knowledge/s Nutrition Active 2018-02 Elroy kill 0-22 Tracy deficit: cg 12:45: [id number] 00 Nutrition nutritional Nutrition Active 2018-02 Elroy restriction 0-22 Tracy s 12:45: [id number] 00 Safety knowledge/s Safety Active 2018-02 Elroy kill 0-22 Tracy deficit: pt 12:45: [id number] 00 Safety knowledge/s Safety Active 2018-02 Elroy kill 0-22 Tracy deficit: cg 12:45: [id number] 00 Diagnoses knowledge/s Diagnoses Active 2018-02 Elroy kill 0-22 Tracy deficit: pt 12:45: [id number] 00 Diagnoses knowledge/s Diagnoses Active 2018-02 Elroy kill 0-22 Tracy deficit: cg 12:45: [id number] 00 Respiratory CPAP Respirator Active 2018-02 Eliel treatments y 0-25 Joyner in home 11:00: [id number] 00 Test/Treatm tests Test/Injec Active 2018-02 Eliel ent ordered t/Burak -15 Joyner [id number] Infection s/s of Infection Active 2018-02 Eliel infection -15 Joyner 11:00: [id number] 00 Safety can be left Safety Active 2018-02 Eliel alone for 1-15 Joyner only short 11:00: [id number] periods 00 Allergies, Adverse Reactions, Alerts This [...] tablet mg tablet Lovenox 150 Lovenox 150 2018-02 Yes Midura Unknown Unknown mg/mL mg/mL 0-22 MD,Jesús subcutaneou subcutaneou s syringe s syringe omeprazole omeprazole 2018-02- Yes Midura Unknown Unknown 20 mg 20 mg 0-22 10-30 MD,Jesús capsule,del capsule,del ayed ayed release release oxyCODONE oxyCODONE 2018-02 2019- Yes Midura Unknown Unknown 10 mg 10 [...] mg 10 mg 0-30 MD,Aiden tablet tablet Vital Signs Vital Name Observation Time Observation Value Comments SYSTOLIC mm[Hg] 2019-01-02 18:08:52 132 mm[Hg] mm[Hg] Method: Sit DIASTOLIC mm[Hg] 2019-01-02 18:08:52 74 mm[Hg] mm[Hg] Method: Sit PULSE 2019-01-02 18:08:52 76 /min /min RESP RATE 2019-01-02 18:08:52 20 /min /min TEMP 2019-01-02 18:08:52 97.2 [degF] Procedures This patient has no known procedures. Results This patient has no known results.
--- OUTSIDE RECORDS SUMMARY | 2019-02-15 16:16 | XMS REPORT ---
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 [id number] [place] 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, esophagus, [id number] unspecified unspecified 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 [id number] 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 [id number] without without complicatio complicatio ns ns I10 I10 Diagnosis Active Eliel 02-18 Ar [id number] Pain frequent Pain Mgmt Active 2018-02 Beth pain 0-22 (Kelly) 10:30: Lu 00 [id number] Cardio edema Cardiovasc Active 2018-02 Beth ular 0-22 (Kelly) 10:30: Lu 00 [id number] Respiratory dyspnea Respirator Active 2018-02 Beth present y 0-22 (Kelly) 10:30: Lu [id number] Endo/Juwan diabetic Endo/Juwan Resolve 2018-022018-12-19 Beth foot care d 0-22 11:00:00 (Kelly) 10:30: Ul [id number] Endo/Juwan anti-coagul Endo/Juwan Resolve 2018-022018-12-19 Beth ation d 0-22 11:00:00 (Kelly) therapy 10:30: [id number] Integument skin Integument Active 2018-02 Beth integrity 0-22 (Kelly) risk 10:30: [id number] Elimination urinary Eliminatio Active 2018-02 Beth incontinenc n 0-22 (Kelly) e 10:30: [id number] Neuro confusion Neuro/Emot Active 2018-02 Beth present ion 0-22 (Kelly) 10:30: [id number] Activity ADL Activity Active 2018-02 Beth assistance 0-22 (Kelly) required 10:30: [id number] Activity self-care Activity Active 2018-02 Beth deficit 0-22 (Kelly) 10:30: [id number] Safety fall risk Safety Active 2018-02 Beth factor 0-22 (Kelly) present 10:30: [id number] Safety risk for Safety Active 2018-02 Beth hospitaliza 0-22 (Kelly) tion 10:30: [id number] Medication oral med Meds Active 2018-02 Beth assistance 0-22 (Kelly) required 10:30: [id number] Musculoskel transfer Musculoske Active 2018-02 Beth etal assistance letal 0-22 (Kelly) required 10:30: [id number] Musculoskel requires Musculoske Active 2018-02 Beth etal human letal 0-22 (Kelly) assist to 10:30: Lu leave home 00 [id number] Pain knowledge/s Pain Mgmt Active 2018-02 Elroy kill 0-22 Tracy deficit: pt 12:45: [id number] 00 Pain knowledge/s Pain Mgmt Active 2018-02 Elroy kill 0-22 Rtacy deficit: cg 12:45: [id number] 00 Nutrition knowledge/s Nutrition Active 2018-02 Elroy kill 0-22 Tracy deficit: pt 12:45: [id number] 00 Nutrition knowledge/s Nutrition Active 2018-02 Elroy kill 0-22 Tracy deficit: cg 12:45: [id number] 00 Nutrition nutritional Nutrition Active 2018-02 Elroy restriction 0-22 Tracy s 12:45: [id number] 00 Safety knowledge/s Safety Active 2018-02 Elroy kill 0-22 Tracy deficit: pt 12:45: [id number] 00 Safety knowledge/s Safety Active 2018-02 Elroy kill 0-22 Tracy deficit: cg 12:45: [id number] 00 Diagnoses knowledge/s Diagnoses Active 2018-02 Elroy kill 0-22 Tracy deficit: pt 12:45: [id number] 00 Diagnoses knowledge/s Diagnoses Active 2018-02 Elroy kill 0-22 Tracy deficit: cg 12:45: [id number] 00 Respiratory CPAP Respirator Active 2018-02 Eliel treatments y 0-25 Joyner in home 11:00: [id number] 00 Test/Treatm tests Test/Injec Active 2018-02 Eliel ent ordered t/Burak -15 Joyner [id number] Infection s/s of Infection Active 2018-02 Eliel infection -15 Joyner 11:00: [id number] 00 Safety can be left Safety Active 2018-02 Eliel alone for 1-15 Joyner only short 11:00: [id number] periods 00 Allergies, Adverse Reactions, Alerts This [...]
--- OUTSIDE RECORDS SUMMARY | 2019-02-15 16:16 | XMS REPORT ---
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 [id number] [place] 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, esophagus, [id number] unspecified unspecified 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 [id number] 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 [id number] without without complicatio complicatio ns ns I10 I10 Diagnosis Active Eliel 02-18 Ar [id number] Pain frequent Pain Mgmt Active 2018-02 Beth pain 0-22 (Kelly) 10:30: Lu 00 [id number] Cardio edema Cardiovasc Active 2018-02 Beth ular 0-22 (Kelly) 10:30: Lu 00 [id number] Respiratory dyspnea Respirator Active 2018-02 Beth present y 0-22 (Kelly) 10:30: Lu [id number] Endo/Juwan diabetic Endo/Juwan Resolve 2018-022018-12-19 Beth foot care d 0-22 11:00:00 (Kelly) 10:30: Lu [id number] Endo/Juwan anti-coagul Endo/Juwan Resolve 2018-022018-12-19 Beth ation d 0-22 11:00:00 (Kelly) therapy 10:30: [id number] Integument skin Integument Resolve 2018-022019-01-16 Beth integrity d 0-22 10:30:00 (Kelly) risk 10:30: [id number] Elimination urinary Eliminatio Resolve 2018-022019-01-16 Beth incontinenc n d 0-22 10:30:00 (Kelly) e 10:30: [id number] Neuro confusion Neuro/Emot Active 2018-02 Beth present ion 0-22 (Kelly) 10:30: [id number] Activity ADL Activity Active 2018-02 Beth assistance 0-22 (Kelly) required 10:30: [id number] Activity self-care Activity Active 2018-02 Beth deficit 0-22 (Kelly) 10:30: [id number] Safety fall risk Safety Resolve 2018-022019-01-16 Beth factor d 0-22 10:30:00 (Kelly) present 10:30: [id number] Safety risk for Safety Resolve 2018-022019-01-16 Beth hospitaliza d 0-22 10:30:00 (Kelly) tion 10:30: [id number] Medication oral med Meds Active 2018-02 Beth assistance 0-22 (Kelly) required 10:30: [id number] Musculoskel transfer Musculoske Active 2018-02 Beth etal assistance letal 0-22 (Kelly) required 10:30: [id number] Musculoskel requires Musculoske Active 2018-02 Beth etal human letal 0-22 (Kelly) assist to 10:30: Lu leave home 00 [id number] Pain knowledge/s Pain Mgmt Active 2018-02 Elroy kill 0-22 Tracy deficit: pt 12:45: [id number] 00 Pain knowledge/s Pain Mgmt Active 2018-02 Elroy kill 0-22 Tracy deficit: cg 12:45: [id number] 00 Nutrition knowledge/s Nutrition Resolve 2018-022019-01-16 Elroy kill d 0-22 10:30:00 Tracy deficit: pt 12:45: [id number] 00 Nutrition knowledge/s Nutrition Resolve 2018-022019-01-16 Elroy kill d 0-22 10:30:00 Tracy deficit: cg 12:45: [id number] 00 Nutrition nutritional Nutrition Resolve 2018-022019-01-16 Elroy restriction d 0-22 10:30:00 Tracy s 12:45: [id number] 00 Safety knowledge/s Safety Resolve 2018-022019-01-16 Elroy kill d 0-22 10:30:00 Tracy deficit: pt 12:45: [id number] 00 Safety knowledge/s Safety Resolve 2018-022019-01-16 Elroy kill d 0-22 10:30:00 Tracy deficit: cg 12:45: [id number] 00 Diagnoses knowledge/s Diagnoses Active 2018-02 Elroy kill 0-22 Tracy deficit: pt 12:45: [id number] 00 Diagnoses knowledge/s Diagnoses Active 2018-02 Elroy kill 0-22 Tracy deficit: cg 12:45: [id number] 00 Respiratory CPAP Respirator Active 2018-02 Eliel treatments y 0-25 Ar in home 11:00: [id number] 00 Test/Treatm tests Test/Injec Active 2018-02 Eliel ent ordered t/Burak 1-15 Joyner [id number] Infection s/s of Infection Resolve 2018-022019-01-16 Eliel infection d 1-15 10:30:00 Ar 11:00: [id number] 00 Safety can be left Safety Resolve 2018-022019-01-16 Eliel alone for d 1-15 10:30:00 Joyner only short 11:00: [id number] periods 00 Allergies, Adverse Reactions, Alerts This [...] Midura Unknown Unknown mg tablet mg tablet 1 Jesús COPPOLA Vital Signs Vital Name Observation Time Observation Value Comments SYSTOLIC mm[Hg] 2019-01-16 18:09:06 122 mm[Hg] mm[Hg] Method: Sit DIASTOLIC mm[Hg] 2019-01-16 18:09:06 74 mm[Hg] mm[Hg] Method: Sit PULSE 2019-01-16 18:09:06 68 /min /min RESP RATE 2019-01-16 18:09:06 16 /min /min TEMP 2019-01-16 18:09:06 97.2 [degF] Procedures This patient has no known procedures. Results This patient has no known results.
--- OUTSIDE RECORDS SUMMARY | 2019-02-15 16:16 | XMS REPORT ---
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 [id number] [place] 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, esophagus, [id number] unspecified unspecified 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 [id number] 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 [id number] without without complicatio complicatio ns ns I10 I10 Diagnosis Active Eliel 02-18 Ar [id number] Pain frequent Pain Mgmt Active 2018-02 Beth pain 0-22 (Kelly) 10:30: Lu 00 [id number] Cardio edema Cardiovasc Active 2018-02 Beth ular 0-22 (Kelly) 10:30: Lu 00 [id number] Respiratory dyspnea Respirator Active 2018-02 Beth present y 0-22 (Kelly) 10:30: Lu [id number] Endo/Juawn diabetic Endo/Juwan Resolve 2018-022018-12-19 Beth foot care d 0-22 11:00:00 (Kelly) 10:30: Lu [id number] Endo/Juwan anti-coagul Endo/Juwan Resolve 2018-022018-12-19 Beth ation d 0-22 11:00:00 (Kelly) therapy 10:30: [id number] Integument skin Integument Resolve 2018-022019-01-16 Beth integrity d 0-22 10:30:00 (Kelly) risk 10:30: [id number] Elimination urinary Eliminatio Resolve 2018-022019-01-16 Beth incontinenc n d 0-22 10:30:00 (Kelly) e 10:30: [id number] Neuro confusion Neuro/Emot Active 2018-02 Beth present ion 0-22 (Kelly) 10:30: [id number] Activity ADL Activity Active 2018-02 Beth assistance 0-22 (Kelly) required 10:30: [id number] Activity self-care Activity Active 2018-02 Beth deficit 0-22 (Kelly) 10:30: [id number] Safety fall risk Safety Resolve 2018-022019-01-16 Beth factor d 0-22 10:30:00 (Kelly) present 10:30: [id number] Safety risk for Safety Resolve 2018-022019-01-16 Beth hospitaliza d 0-22 10:30:00 (Kelly) tion 10:30: [id number] Medication oral med Meds Active 2018-02 Beth assistance 0-22 (Kelly) required 10:30: [id number] Musculoskel transfer Musculoske Active 2018-02 Beth etal assistance letal 0-22 (Kelly) required 10:30: [id number] Musculoskel requires Musculoske Active 2018-02 Beth etal human letal 0-22 (Kelly) assist to 10:30: Lu leave home 00 [id number] Pain knowledge/s Pain Mgmt Active 2018-02 Elroy kill 0-22 Tracy deficit: pt 12:45: [id number] 00 Pain knowledge/s Pain Mgmt Active 2018-02 Elroy kill 0-22 Tracy deficit: cg 12:45: [id number] 00 Nutrition knowledge/s Nutrition Resolve 2018-022019-01-16 Elroy kill d 0-22 10:30:00 Tracy deficit: pt 12:45: [id number] 00 Nutrition knowledge/s Nutrition Resolve 2018-022019-01-16 Elroy kill d 0-22 10:30:00 Tracy deficit: cg 12:45: [id number] 00 Nutrition nutritional Nutrition Resolve 2018-022019-01-16 Elroy restriction d 0-22 10:30:00 Trayc s 12:45: [id number] 00 Safety knowledge/s Safety Resolve 2018-022019-01-16 Elroy kill d 0-22 10:30:00 Tracy deficit: pt 12:45: [id number] 00 Safety knowledge/s Safety Resolve 2018-022019-01-16 Elroy kill d 0-22 10:30:00 Tracy deficit: cg 12:45: [id number] 00 Diagnoses knowledge/s Diagnoses Active 2018-02 Elroy kill 0-22 Tracy deficit: pt 12:45: [id number] 00 Diagnoses knowledge/s Diagnoses Active 2018-02 Elroy kill 0-22 Tracy deficit: cg 12:45: [id number] 00 Respiratory CPAP Respirator Active 2018-02 Eliel treatments y 0-25 Ar in home 11:00: [id number] 00 Test/Treatm tests Test/Injec Active 2018-02 Eliel ent ordered t/Burak 1-15 Joyner [id number] Infection s/s of Infection Resolve 2018-022019-01-16 Eliel infection d 1-15 10:30:00 Ar 11:00: [id number] 00 Safety can be left Safety Resolve 2018-022019-01-16 Eliel alone for d 1-15 10:30:00 Joyner only short 11:00: [id number] periods 00 Allergies, Adverse Reactions, Alerts This [...]
--- OUTSIDE RECORDS SUMMARY | 2019-02-15 16:16 | XMS REPORT ---
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, esophagus, [id number] unspecified unspecified 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 [id number] without without complicatio complicatio ns ns I10 I10 Diagnosis Active Eliel 02-18 Ar [id number] Pain frequent Pain Mgmt Active 2018-02 Beth pain 0-22 (Kelly) 10:30: Lu 00 [id number] Cardio edema Cardiovasc Active 2018-02 Beth ular 0-22 (Kelly) 10:30: Lu 00 [id number] Respiratory dyspnea Respirator Active 2018-02 Beth present y 0-22 (Kelly) 10:30: Lu [id number] Endo/Juwan diabetic Endo/Juwan Resolve 2018-022018-12-19 Beth foot care d 0-22 11:00:00 (Kelly) 10:30: Lu [id number] Endo/Juwan anti-coagul Endo/Juwan Resolve 2018-022018-12-19 Beth ation d 0-22 11:00:00 (Kelly) therapy 10:30: [id number] Integument skin Integument Resolve 2018-022019-01-16 Beth integrity d 0-22 10:30:00 (Kelly) risk 10:30: [id number] Elimination urinary Eliminatio Resolve 2018-022019-01-16 Beth incontinenc n d 0-22 10:30:00 (Kelly) e 10:30: [id number] Neuro confusion Neuro/Emot Active 2018-02 Beth present ion 0-22 (Kelly) 10:30: [id number] Activity ADL Activity Active 2018-02 Beth assistance 0-22 (Kelly) required 10:30: [id number] Activity self-care Activity Active 2018-02 Beth deficit 0-22 (Kelly) 10:30: [id number] Safety fall risk Safety Resolve 2018-022019-01-16 Beth factor d 0-22 10:30:00 (Kelly) present 10:30: [id number] Safety risk for Safety Resolve 2018-022019-01-16 Beth hospitaliza d 0-22 10:30:00 (Kelly) tion 10:30: [id number] Medication oral med Meds Active 2018-02 Beth assistance 0-22 (Kelly) required 10:30: [id number] Musculoskel transfer Musculoske Active 2018-02 Beth etal assistance letal 0-22 (Kelly) required 10:30: [id number] Musculoskel requires Musculoske Active 2018-02 Beth etal human letal 0-22 (Kelly) assist to 10:30: Lu leave home 00 [id number] Pain knowledge/s Pain Mgmt Active 2018-02 Elroy kill 0-22 Tracy deficit: pt 12:45: [id number] 00 Pain knowledge/s Pain Mgmt Active 2018-02 Elroy kill 0-22 Tracy deficit: cg 12:45: [id number] 00 Nutrition knowledge/s Nutrition Resolve 2018-022019-01-16 Elroy kill d 0-22 10:30:00 Tracy deficit: pt 12:45: [id number] 00 Nutrition knowledge/s Nutrition Resolve 2018-022019-01-16 Elroy kill d 0-22 10:30:00 Tracy deficit: cg 12:45: [id number] 00 Nutrition nutritional Nutrition Resolve 2018-022019-01-16 Elroy restriction d 0-22 10:30:00 Tracy s 12:45: [id number] Safety knowledge/s Safety Resolve 2018-022019-01-16 Elroy kill d 0-22 10:30:00 Tracy deficit: pt 12:45: [id number] 00 Safety knowledge/s Safety Resolve 2018-022019-01-16 Elroy kill d 0-22 10:30:00 Tracy deficit: cg 12:45: [id number] 00 Diagnoses knowledge/s Diagnoses Active 2018-02 Elroy kill 0-22 Tracy deficit: pt 12:45: [id number] 00 Diagnoses knowledge/s Diagnoses Active 2018-02 Elroy kill 0-22 Tracy deficit: cg 12:45: [id number] 00 Respiratory CPAP Respirator Active 2018-02 Eliel treatments y 0-25 Ar in home 11:00: [id number] 00 Test/Treatm tests Test/Injec Active 2018-02 Eliel ent ordered t/Burak 1-15 Joyner [id number] Infection s/s of Infection Resolve 2018-022019-01-16 Eliel infection d 1-15 10:30:00 Ar 11:00: [id number] 00 Safety can be left Safety Resolve 2018-022019-01-16 Eliel alone for d 1-15 10:30:00 Joyner only short 11:00: [id number] periods 00 Allergies, Adverse Reactions, Alerts This [...]
--- OUTSIDE RECORDS SUMMARY | 2019-02-15 16:16 | XMS REPORT ---
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, esophagus, [id number] unspecified unspecified 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 [id number] 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 [id number] without without complicatio complicatio ns ns I10 I10 Diagnosis Active Eliel 02-18 Ar [id number] Pain frequent Pain Mgmt Active 2018-02 Beth pain 0-22 (Kelly) 10:30: Lu 00 [id number] Cardio edema Cardiovasc Active 2018-02 Beth ular 0-22 (Kelly) 10:30: Lu 00 [id number] Respiratory dyspnea Respirator Active 2018-02 Beth present y 0-22 (Kelly) 10:30: Lu [id number] Endo/Juwan diabetic Endo/Juwan Resolve 2018-022018-12-19 Beth foot care d 0-22 11:00:00 (Kelly) 10:30: Lu [id number] Endo/Juwan anti-coagul Endo/Juwan Resolve 2018-022018-12-19 Beth ation d 0-22 11:00:00 (Kelly) therapy 10:30: [id number] Integument skin Integument Active 2018-02 Beth integrity 0-22 (Kelly) risk 10:30: [id number] Elimination urinary Eliminatio Active 2018-02 Beth incontinenc n 0-22 (Kelly) e 10:30: [id number] Neuro confusion Neuro/Emot Active 2018-02 Beth present ion 0-22 (Kelly) 10:30: [id number] Activity ADL Activity Active 2018-02 Beth assistance 0-22 (Kelly) required 10:30: [id number] Activity self-care Activity Active 2018-02 Beth deficit 0-22 (Kelly) 10:30: [id number] Safety fall risk Safety Active 2018-02 Beth factor 0-22 (Kelly) present 10:30: [id number] Safety risk for Safety Active 2018-02 Beth hospitaliza 0-22 (Kelly) tion 10:30: [id number] Medication oral med Meds Active 2018-02 Beth assistance 0-22 (Kelly) required 10:30: [id number] Musculoskel transfer Musculoske Active 2018-02 Beth etal assistance letal 0-22 (Kelly) required 10:30: [id number] Musculoskel requires Musculoske Active 2018-02 Beth etal human letal 0-22 (Kelly) assist to 10:30: Lu leave home 00 [id number] Pain knowledge/s Pain Mgmt Active 2018-02 Elroy kill 0-22 Tracy deficit: pt 12:45: [id number] 00 Pain knowledge/s Pain Mgmt Active 2018-02 Elroy kill 0-22 Tracy deficit: cg 12:45: [id number] 00 Nutrition knowledge/s Nutrition Active 2018-02 Elroy kill 0-22 Tracy deficit: pt 12:45: [id number] 00 Nutrition knowledge/s Nutrition Active 2018-02 Elroy kill 0-22 Tracy deficit: cg 12:45: [id number] 00 Nutrition nutritional Nutrition Active 2018-02 Elroy restriction 0-22 Tracy s 12:45: [id number] 00 Safety knowledge/s Safety Active 2018-02 Elroy kill 0-22 Tracy deficit: pt 12:45: [id number] 00 Safety knowledge/s Safety Active 2018-02 Elroy kill 0-22 Tracy deficit: cg 12:45: [id number] 00 Diagnoses knowledge/s Diagnoses Active 2018-02 Elroy kill 0-22 Tracy deficit: pt 12:45: [id number] 00 Diagnoses knowledge/s Diagnoses Active 2018-02 Elroy kill 0-22 Tracy deficit: cg 12:45: [id number] 00 Respiratory CPAP Respirator Active 2018-02 Eliel treatments y 0-25 Joyner in home 11:00: [id number] 00 Test/Treatm tests Test/Injec Active 2018-02 Eliel ent ordered t/Burak -15 Joyner [id number] Infection s/s of Infection Active 2018-02 Eliel infection -15 Joyner 11:00: [id number] 00 Safety can be left Safety Active 2018-02 Eliel alone for 1-15 Joyner only short 11:00: [id number] periods 00 Allergies, Adverse Reactions, Alerts This [...] Observation Time Observation Value Comments SYSTOLIC mm[Hg] 2019-01-11 18:09:01 106 mm[Hg] mm[Hg] Method: Sit DIASTOLIC mm[Hg] 2019-01-11 18:09:01 60 mm[Hg] mm[Hg] Method: Sit PULSE 2019-01-11 18:09:01 76 /min /min RESP RATE 2019-01-02 18:08:52 20 /min /min TEMP 2019-01-11 18:09:01 97.6 [degF] Procedures This patient has no known procedures. Results This patient has no known results.
--- OUTSIDE RECORDS SUMMARY | 2019-02-15 16:16 | XMS REPORT ---
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, esophagus, [id number] unspecified unspecified 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 [id number] 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 [id number] without without complicatio complicatio ns ns I10 I10 Diagnosis Active Eliel 02-18 Ar [id number] Pain frequent Pain Mgmt Active 2018-02 Beth pain 0-22 (Kelly) 10:30: Lu 00 [id number] Cardio edema Cardiovasc Active 2018-02 Beth ular 0-22 (Kelly) 10:30: Lu 00 [id number] Respiratory dyspnea Respirator Active 2018-02 Beth present y 0-22 (Kelly) 10:30: Lu [id number] Endo/Juwan diabetic Endo/Juwan Resolve 2018-022018-12-19 Beth foot care d 0-22 11:00:00 (Kelly) 10:30: Lu [id number] Endo/Juwan anti-coagul Endo/Juwan Resolve 2018-022018-12-19 Beth ation d 0-22 11:00:00 (Kelly) therapy 10:30: [id number] Integument skin Integument Resolve 2018-022019-01-16 Beth integrity d 0-22 10:30:00 (Kelly) risk 10:30: [id number] Elimination urinary Eliminatio Resolve 2018-022019-01-16 Beth incontinenc n d 0-22 10:30:00 (Kelly) e 10:30: [id number] Neuro confusion Neuro/Emot Active 2018-02 Beth present ion 0-22 (Kelly) 10:30: [id number] Activity ADL Activity Active 2018-02 Beth assistance 0-22 (Kelly) required 10:30: [id number] Activity self-care Activity Active 2018-02 Beth deficit 0-22 (Kelly) 10:30: [id number] Safety fall risk Safety Resolve 2018-022019-01-16 Beth factor d 0-22 10:30:00 (Kelly) present 10:30: [id number] Safety risk for Safety Resolve 2018-022019-01-16 Beth hospitaliza d 0-22 10:30:00 (Kelly) tion 10:30: [id number] Medication oral med Meds Active 2018-02 Beth assistance 0-22 (Kelly) required 10:30: [id number] Musculoskel transfer Musculoske Active 2018-02 Beth etal assistance letal 0-22 (Kelly) required 10:30: [id number] Musculoskel requires Musculoske Active 2018-02 Beth etal human letal 0-22 (Kelly) assist to 10:30: Lu leave home 00 [id number] Pain knowledge/s Pain Mgmt Active 2018-02 Elroy kill 0-22 Tracy deficit: pt 12:45: [id number] 00 Pain knowledge/s Pain Mgmt Active 2018-02 Elroy kill 0-22 Tracy deficit: cg 12:45: [id number] 00 Nutrition knowledge/s Nutrition Resolve 2018-022019-01-16 Elroy kill d 0-22 10:30:00 Tracy deficit: pt 12:45: [id number] 00 Nutrition knowledge/s Nutrition Resolve 2018-022019-01-16 Elroy kill d 0-22 10:30:00 Tracy deficit: cg 12:45: [id number] 00 Nutrition nutritional Nutrition Resolve 2018-022019-01-16 Elroy restriction d 0-22 10:30:00 Tracy s 12:45: [id number] 00 Safety knowledge/s Safety Resolve 2018-022019-01-16 Elroy kill d 0-22 10:30:00 Tracy deficit: pt 12:45: [id number] 00 Safety knowledge/s Safety Resolve 2018-022019-01-16 Elroy kill d 0-22 10:30:00 Tracy deficit: cg 12:45: [id number] 00 Diagnoses knowledge/s Diagnoses Active 2018-02 Elroy kill 0-22 Tracy deficit: pt 12:45: [id number] 00 Diagnoses knowledge/s Diagnoses Active 2018-02 Elroy kill 0-22 Tracy deficit: cg 12:45: [id number] 00 Respiratory CPAP Respirator Active 2018-02 Eliel treatments y 0-25 Ar in home 11:00: [id number] 00 Test/Treatm tests Test/Injec Active 2018-02 Eliel ent ordered t/Burak 1-15 Joyner [id number] Infection s/s of Infection Resolve 2018-022019-01-16 Eliel infection d 1-15 10:30:00 Ar 11:00: [id number] 00 Safety can be left Safety Resolve 2018-022019-01-16 Eliel alone for d 1-15 10:30:00 Joyner only short 11:00: [id number] periods 00 Allergies, Adverse Reactions, Alerts This [...] Midura Unknown Unknown mg/mL mg/mL 0-22 11-25 ,Jesús subcutaneou subcutaneou s syringe s syringe omeprazole [...] Observation Time Observation Value Comments SYSTOLIC mm[Hg] 2019-01-23 18:09:13 138 mm[Hg] mm[Hg] Method: Sit DIASTOLIC mm[Hg] 2019-01-23 18:09:13 80 mm[Hg] mm[Hg] Method: Sit PULSE 2019-01-23 18:09:13 64 /min /min RESP RATE 2019-01-23 18:09:13 16 /min /min TEMP 2019-01-23 18:09:13 98.1 [degF] Procedures This patient has no known procedures. Results This patient has no known results.
--- OUTSIDE RECORDS SUMMARY | 2019-02-15 16:16 | XMS REPORT ---
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 [id number] [place] 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, esophagus, [id number] unspecified unspecified 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 [id number] 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 [id number] without without complicatio complicatio ns ns I10 I10 Diagnosis Active Eliel 02-18 Ar [id number] Pain frequent Pain Mgmt Active 2018-02 Beth pain 0-22 (Kelly) 10:30: Lu 00 [id number] Cardio edema Cardiovasc Active 2018-02 Beth ular 0-22 (Kelly) 10:30: Lu 00 [id number] Respiratory dyspnea Respirator Active 2018-02 Beth present y 0-22 (Kelly) 10:30: Lu [id number] Endo/Juwan diabetic Endo/Juwan Resolve 2018-022018-12-19 Beth foot care d 0-22 11:00:00 (Kelly) 10:30: Lu [id number] Endo/Juwan anti-coagul Endo/Juwan Resolve 2018-022018-12-19 Beth ation d 0-22 11:00:00 (Kelly) therapy 10:30: [id number] Integument skin Integument Resolve 2018-022019-01-16 Beth integrity d 0-22 10:30:00 (Kelly) risk 10:30: [id number] Elimination urinary Eliminatio Resolve 2018-022019-01-16 Beth incontinenc n d 0-22 10:30:00 (Kelly) e 10:30: [id number] Neuro confusion Neuro/Emot Active 2018-02 Beth present ion 0-22 (Kelly) 10:30: [id number] Activity ADL Activity Active 2018-02 Beth assistance 0-22 (Kelly) required 10:30: [id number] Activity self-care Activity Active 2018-02 Beth deficit 0-22 (Kelly) 10:30: [id number] Safety fall risk Safety Resolve 2018-022019-01-16 Beth factor d 0-22 10:30:00 (Kelly) present 10:30: [id number] Safety risk for Safety Resolve 2018-022019-01-16 Beth hospitaliza d 0-22 10:30:00 (Kelly) tion 10:30: [id number] Medication oral med Meds Active 2018-02 Beth assistance 0-22 (Kelly) required 10:30: [id number] Musculoskel transfer Musculoske Active 2018-02 Beth etal assistance letal 0-22 (Kelly) required 10:30: [id number] Musculoskel requires Musculoske Active 2018-02 Beth etal human letal 0-22 (Kelly) assist to 10:30: Lu leave home 00 [id number] Pain knowledge/s Pain Mgmt Active 2018-02 Elroy kill 0-22 Tracy deficit: pt 12:45: [id number] 00 Pain knowledge/s Pain Mgmt Active 2018-02 Elroy kill 0-22 Tracy deficit: cg 12:45: [id number] 00 Nutrition knowledge/s Nutrition Resolve 2018-022019-01-16 Elroy kill d 0-22 10:30:00 Tracy deficit: pt 12:45: [id number] 00 Nutrition knowledge/s Nutrition Resolve 2018-022019-01-16 Elroy kill d 0-22 10:30:00 Tracy deficit: cg 12:45: [id number] 00 Nutrition nutritional Nutrition Resolve 2018-022019-01-16 Elroy restriction d 0-22 10:30:00 Tracy s 12:45: [id number] 00 Safety knowledge/s Safety Resolve 2018-022019-01-16 Elroy kill d 0-22 10:30:00 Tracy deficit: pt 12:45: [id number] 00 Safety knowledge/s Safety Resolve 2018-022019-01-16 Elroy kill d 0-22 10:30:00 Tracy deficit: cg 12:45: [id number] 00 Diagnoses knowledge/s Diagnoses Active 2018-02 Elroy kill 0-22 Tracy deficit: pt 12:45: [id number] 00 Diagnoses knowledge/s Diagnoses Active 2018-02 Elroy kill 0-22 Tracy deficit: cg 12:45: [id number] 00 Respiratory CPAP Respirator Active 2018-02 Eliel treatments y 0-25 Ar in home 11:00: [id number] 00 Test/Treatm tests Test/Injec Active 2018-02 Eliel ent ordered t/Burak 1-15 Joyner [id number] Infection s/s of Infection Resolve 2018-022019-01-16 Eliel infection d 1-15 10:30:00 Ar 11:00: [id number] 00 Safety can be left Safety Resolve 2018-022019-01-16 Eliel alone for d 1-15 10:30:00 Joyner only short 11:00: [id number] periods 00 Allergies, Adverse Reactions, Alerts This [...]
--- OUTSIDE RECORDS SUMMARY | 2019-02-15 16:16 | XMS REPORT ---
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, esophagus, [id number] unspecified unspecified 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 [id number] 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 [id number] without without complicatio complicatio ns ns I10 I10 Diagnosis Active Eliel 02-18 Ar [id number] Pain frequent Pain Mgmt Active 2018-02 Beth pain 0-22 (Kelly) 10:30: Lu 00 [id number] Cardio edema Cardiovasc Active 2018-02 Beth ular 0-22 (Kelly) 10:30: Lu 00 [id number] Respiratory dyspnea Respirator Active 2018-02 Beth present y 0-22 (Kelly) 10:30: Lu [id number] Endo/Juwan diabetic Endo/Juwan Resolve 2018-022018-12-19 Beth foot care d 0-22 11:00:00 (Kelly) 10:30: Lu [id number] Endo/Juwan anti-coagul Endo/Juwan Resolve 2018-022018-12-19 Beth ation d 0-22 11:00:00 (Kelly) therapy 10:30: [id number] Integument skin Integument Active 2018-02 Beth integrity 0-22 (Kelly) risk 10:30: [id number] Elimination urinary Eliminatio Active 2018-02 Beth incontinenc n 0-22 (Kelly) e 10:30: [id number] Neuro confusion Neuro/Emot Active 2018-02 Beth present ion 0-22 (Kelly) 10:30: [id number] Activity ADL Activity Active 2018-02 Beth assistance 0-22 (Kelly) required 10:30: [id number] Activity self-care Activity Active 2018-02 Beth deficit 0-22 (Kelly) 10:30: [id number] Safety fall risk Safety Active 2018-02 Beth factor 0-22 (Kelly) present 10:30: [id number] Safety risk for Safety Active 2018-02 Beth hospitaliza 0-22 (Kelly) tion 10:30: [id number] Medication oral med Meds Active 2018-02 Beth assistance 0-22 (Kelly) required 10:30: [id number] Musculoskel transfer Musculoske Active 2018-02 Beth etal assistance letal 0-22 (Kelly) required 10:30: [id number] Musculoskel requires Musculoske Active 2018-02 Beth etal human letal 0-22 (Kelly) assist to 10:30: Lu leave home 00 [id number] Pain knowledge/s Pain Mgmt Active 2018-02 Elroy kill 0-22 Tracy deficit: pt 12:45: [id number] 00 Pain knowledge/s Pain Mgmt Active 2018-02 Elroy kill 0-22 Tracy deficit: cg 12:45: [id number] 00 Nutrition knowledge/s Nutrition Active 2018-02 Elroy kill 0-22 Tracy deficit: pt 12:45: [id number] 00 Nutrition knowledge/s Nutrition Active 2018-02 Elroy kill 0-22 Tracy deficit: cg 12:45: [id number] 00 Nutrition nutritional Nutrition Active 2018-02 Elroy restriction 0-22 Tracy s 12:45: [id number] 00 Safety knowledge/s Safety Active 2018-02 Elroy kill 0-22 Tracy deficit: pt 12:45: [id number] 00 Safety knowledge/s Safety Active 2018-02 Elroy kirby 0-22 Tracy deficit: cg 12:45: [id number] 00 Diagnoses knowledge/s Diagnoses Active 2018-02 Elroy kirby 0-22 Tracy deficit: pt 12:45: [id number] 00 Diagnoses knowledge/s Diagnoses Active 2018-02 Elroy kirby 0-22 Tracy deficit: cg 12:45: [id number] 00 Respiratory CPAP Respirator Active 2018-02 Eliel roche y 0-25 Ar in home 11:00: [id number] 00 Allergies, Adverse Reactions, Alerts This patient [...] Observation Time Observation Value Comments SYSTOLIC mm[Hg] 2018-12-30 18:08:49 112 mm[Hg] mm[Hg] Method: Sit DIASTOLIC mm[Hg] 2018-12-30 18:08:49 64 mm[Hg] mm[Hg] Method: Sit PULSE 2018-12-30 18:08:49 72 /min /min RESP RATE 2018-12-26 18:08:45 16 /min /min TEMP 2018-12-30 18:08:49 96.9 [degF] Procedures This patient has no known procedures. Results This patient has no known results.
--- OUTSIDE RECORDS SUMMARY | 2019-02-15 16:16 | XMS REPORT ---
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, esophagus, [id number] unspecified unspecified 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 [id number] 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 [id number] without without complicatio complicatio ns ns I10 I10 Diagnosis Active Eliel 02-18 Ar [id number] Pain frequent Pain Mgmt Active 2018-02 Beth pain 0-22 (Kelly) 10:30: Lu 00 [id number] Cardio edema Cardiovasc Active 2018-02 Beth ular 0-22 (Kelly) 10:30: Lu 00 [id number] Respiratory dyspnea Respirator Active 2018-02 Beth present y 0-22 (Kelly) 10:30: Lu [id number] Endo/Juwan diabetic Endo/Juwan Resolve 2018-022018-12-19 Beth foot care d 0-22 11:00:00 (Kelly) 10:30: Lu [id number] Endo/Juwan anti-coagul Endo/Juwan Resolve 2018-022018-12-19 Beth ation d 0-22 11:00:00 (Kelly) therapy 10:30: [id number] Integument skin Integument Active 2018-02 Beth integrity 0-22 (Kelly) risk 10:30: [id number] Elimination urinary Eliminatio Active 2018-02 Beth incontinenc n 0-22 (Kelly) e 10:30: [id number] Neuro confusion Neuro/Emot Active 2018-02 Beth present ion 0-22 (Kelly) 10:30: [id number] Activity ADL Activity Active 2018-02 Beth assistance 0-22 (Kelly) required 10:30: [id number] Activity self-care Activity Active 2018-02 Beth deficit 0-22 (Kelly) 10:30: [id number] Safety fall risk Safety Active 2018-02 Beth factor 0-22 (Kelly) present 10:30: [id number] Safety risk for Safety Active 2018-02 Beth hospitaliza 0-22 (Kelly) tion 10:30: [id number] Medication oral med Meds Active 2018-02 Beth assistance 0-22 (Kelly) required 10:30: [id number] Musculoskel transfer Musculoske Active 2018-02 Beth etal assistance letal 0-22 (Kelly) required 10:30: [id number] Musculoskel requires Musculoske Active 2018-02 Beth etal human letal 0-22 (Kelly) assist to 10:30: Lu leave home 00 [id number] Pain knowledge/s Pain Mgmt Active 2018-02 Elroy kill 0-22 Tracy deficit: pt 12:45: [id number] Pain knowledge/s Pain Mgmt Active 2018-02 Elroy kill 0-22 Tracy deficit: cg 12:45: [id number] Nutrition knowledge/s Nutrition Active 2018-02 Elroy kill 0-22 Tracy deficit: pt 12:45: [id number] Nutrition knowledge/s Nutrition Active 2018-02 Elroy kill 0-22 Tracy deficit: cg 12:45: [id number] Nutrition nutritional Nutrition Active 2018-02 Elroy restriction 0-22 Tracy s 12:45: [id number] Safety knowledge/s Safety Active 2018-02 Elroy kill 0-22 Tracy deficit: pt 12:45: [id number] Safety knowledge/s Safety Active 2018-02 Elroy kirby 0-22 Tracy deficit: cg 12:45: [id number] Diagnoses knowledge/s Diagnoses Active 2018-02 Elroy kirby 0-22 Tracy deficit: pt 12:45: [id number] 00 Diagnoses knowledge/s Diagnoses Active 2018-02 Elroy kirby 0-22 Tracy deficit: cg 12:45: [id number] 00 Respiratory CPAP Respirator Active 2018-02 Eliel roche y 0-25 Ar in home 11:00: [id number] 00 Allergies, Adverse Reactions, Alerts This patient [...] Observation Time Observation Value Comments SYSTOLIC mm[Hg] 2019-01-01 18:08:51 112 mm[Hg] mm[Hg] Method: Sit DIASTOLIC mm[Hg] 2019-01-01 18:08:51 50 mm[Hg] mm[Hg] Method: Sit PULSE 2019-01-01 18:08:51 84 /min /min RESP RATE 2018-12-26 18:08:45 16 /min /min TEMP 2019-01-01 18:08:51 97.4 [degF] Procedures This patient has no known procedures. Results This patient has no known results.
--- OUTSIDE RECORDS SUMMARY | 2019-02-15 16:16 | XMS REPORT ---
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 [id number] [place] 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, esophagus, [id number] unspecified unspecified 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 [id number] 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 [id number] without without complicatio complicatio ns ns I10 I10 Diagnosis Active Eliel 02-18 Ar [id number] Pain frequent Pain Mgmt Active 2018-02 Beth pain 0-22 (Kelly) 10:30: Lu 00 [id number] Cardio edema Cardiovasc Active 2018-02 Beth ular 0-22 (Kelly) 10:30: Lu 00 [id number] Respiratory dyspnea Respirator Active 2018-02 Beth present y 0-22 (Kelly) 10:30: Lu [id number] Endo/Juwan diabetic Endo/Juwan Resolve 2018-022018-12-19 Beth foot care d 0-22 11:00:00 (Kelly) 10:30: Lu [id number] Endo/Juwan anti-coagul Endo/Juwan Resolve 2018-022018-12-19 Beth ation d 0-22 11:00:00 (Kelly) therapy 10:30: [id number] Integument skin Integument Active 2018-02 Beth integrity 0-22 (Kelly) risk 10:30: [id number] Elimination urinary Eliminatio Active 2018-02 Beth incontinenc n 0-22 (Kelly) e 10:30: [id number] Neuro confusion Neuro/Emot Active 2018-02 Beth present ion 0-22 (Kelly) 10:30: [id number] Activity ADL Activity Active 2018-02 Beth assistance 0-22 (Kelly) required 10:30: [id number] Activity self-care Activity Active 2018-02 Beth deficit 0-22 (Kelly) 10:30: [id number] Safety fall risk Safety Active 2018-02 Beth factor 0-22 (Kelly) present 10:30: [id number] Safety risk for Safety Active 2018-02 Beth hospitaliza 0-22 (Kelly) tion 10:30: [id number] Medication oral med Meds Active 2018-02 Beth assistance 0-22 (Kelly) required 10:30: [id number] Musculoskel transfer Musculoske Active 2018-02 Beth etal assistance letal 0-22 (Kelly) required 10:30: [id number] Musculoskel requires Musculoske Active 2018-02 Beth etal human letal 0-22 (Kelly) assist to 10:30: Lu leave home 00 [id number] Pain knowledge/s Pain Mgmt Active 2018-02 Elroy kill 0-22 Tracy deficit: pt 12:45: [id number] Pain knowledge/s Pain Mgmt Active 2018-02 Elroy kill 0-22 Tracy deficit: cg 12:45: [id number] Nutrition knowledge/s Nutrition Active 2018-02 Elroy kill 0-22 Tracy deficit: pt 12:45: [id number] 00 Nutrition knowledge/s Nutrition Active 2018-02 Elroy kill 0-22 Tracy deficit: cg 12:45: [id number] Nutrition nutritional Nutrition Active 2018-02 Elroy restriction 0-22 Tracy s 12:45: [id number] 00 Safety knowledge/s Safety Active 2018-02 Elroy kill 0-22 Tracy deficit: pt 12:45: [id number] 00 Safety knowledge/s Safety Active 2018-02 Elroy kill 0-22 Tracy deficit: cg 12:45: [id number] 00 Diagnoses knowledge/s Diagnoses Active 2018-02 Elroy kill 0-22 Tracy deficit: pt 12:45: [id number] 00 Diagnoses knowledge/s Diagnoses Active 2018-02 Elroy kill 0-22 Tracy deficit: cg 12:45: [id number] 00 Respiratory CPAP Respirator Active 2018-02 Eliel treatments y 0-25 Joyner in home 11:00: [id number] 00 Test/Treatm tests Test/Injec Active 2018-02 Eliel ent ordered t/Burak -15 Joyner [id number] Infection s/s of Infection Active 2018-02 Eliel infection -15 Joyner 11:00: [id number] 00 Safety can be left Safety Active 2018-02 Eliel alone for 1-15 Joyner only short 11:00: [id number] periods 00 Allergies, Adverse Reactions, Alerts This [...] Observation Time Observation Value Comments SYSTOLIC mm[Hg] 2019-01-08 18:08:58 124 mm[Hg] mm[Hg] Method: Sit DIASTOLIC mm[Hg] 2019-01-08 18:08:58 78 mm[Hg] mm[Hg] Method: Sit PULSE 2019-01-08 18:08:58 64 /min /min RESP RATE 2019-01-02 18:08:52 20 /min /min TEMP 2019-01-08 18:08:58 97.4 [degF] Procedures This patient has no known procedures. Results This patient has no known results.
--- OUTSIDE RECORDS SUMMARY | 2019-02-15 16:16 | XMS REPORT ---
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 of [id number] [place] 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, esophagus, [id number] unspecified unspecified 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 [id number] 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 [id number] without without complicatio complicatio ns ns I10 I10 Diagnosis Active Eliel 02-18 Ar [id number] Pain frequent Pain Mgmt Active 2018-02 Beth pain 0-22 (Kelly) 10:30: Lu 00 [id number] Cardio edema Cardiovasc Active 2018-02 Beth ular 0-22 (Kelly) 10:30: Lu 00 [id number] Respiratory dyspnea Respirator Active 2018-02 Beth present y 0-22 (Kelly) 10:30: Lu [id number] Endo/Juwan diabetic Endo/Juwan Resolve 2018-022018-12-19 Beth foot care d 0-22 11:00:00 (Kelly) 10:30: Lu [id number] Endo/Juwan anti-coagul Endo/Juwan Resolve 2018-022018-12-19 Beth ation d 0-22 11:00:00 (Kelly) therapy 10:30: [id number] Integument skin Integument Active 2018-02 Beth integrity 0-22 (Kelly) risk 10:30: [id number] Elimination urinary Eliminatio Active 2018-02 Beth incontinenc n 0-22 (Kelly) e 10:30: [id number] Neuro confusion Neuro/Emot Active 2018-02 Beth present ion 0-22 (Kelly) 10:30: [id number] Activity ADL Activity Active 2018-02 Beth assistance 0-22 (Kelly) required 10:30: [id number] Activity self-care Activity Active 2018-02 Beth deficit 0-22 (Kelly) 10:30: [id number] Safety fall risk Safety Active 2018-02 Beth factor 0-22 (Kelly) present 10:30: [id number] Safety risk for Safety Active 2018-02 Beth hospitaliza 0-22 (Kelly) tion 10:30: [id number] Medication oral med Meds Active 2018-02 Beth assistance 0-22 (Kelly) required 10:30: [id number] Musculoskel transfer Musculoske Active 2018-02 Beth etal assistance letal 0-22 (Kelly) required 10:30: [id number] Musculoskel requires Musculoske Active 2018-02 Beth etal human letal 0-22 (Kelly) assist to 10:30: Lu leave home 00 [id number] Pain knowledge/s Pain Mgmt Active 2018-02 Elroy kill 0-22 Tracy deficit: pt 12:45: [id number] Pain knowledge/s Pain Mgmt Active 2018-02 Elroy kill 0-22 Tracy deficit: cg 12:45: [id number] Nutrition knowledge/s Nutrition Active 2018-02 Elroy kill 0-22 Tracy deficit: pt 12:45: [id number] 00 Nutrition knowledge/s Nutrition Active 2018-02 Elroy kill 0-22 Tracy deficit: cg 12:45: [id number] 00 Nutrition nutritional Nutrition Active 2018-02 Elroy restriction 0-22 Tracy s 12:45: [id number] 00 Safety knowledge/s Safety Active 2018-02 Elroy kill 0-22 Tracy deficit: pt 12:45: [id number] 00 Safety knowledge/s Safety Active 2018-02 Elroy kill 0-22 Tracy deficit: cg 12:45: [id number] 00 Diagnoses knowledge/s Diagnoses Active 2018-02 Elroy kill 0-22 Tracy deficit: pt 12:45: [id number] 00 Diagnoses knowledge/s Diagnoses Active 2018-02 Elroy kill 0-22 Tracy deficit: cg 12:45: [id number] 00 Respiratory CPAP Respirator Active 2018-02 Eliel treatments y 0-25 Joyner in home 11:00: [id number] 00 Test/Treatm tests Test/Injec Active 2018-02 Eliel ent ordered t/Burak -15 Joyner [id number] Infection s/s of Infection Active 2018-02 Eliel infection -15 Joyner 11:00: [id number] 00 Safety can be left Safety Active 2018-02 Eliel alone for 1-15 Joyner only short 11:00: [id number] periods 00 Allergies, Adverse Reactions, Alerts This [...]
[2019-02-15] MEDS ORDERED: NS 0.9% 1000 ML** 2,000 ML IV ONE (16:27)
[2019-02-15] MEDS ORDERED: HYDROmorphone INJ1* 1 MG/ML SYRINGE IV SLOW PU ONE (16:33)
--- NOTE | 2019-02-15 16:37 | ED ---
Complex/Multi-Sys Presentation - HPI Summary HPI Summary: 73 y/o male w/ esophageal cancer presented to [facility] by [facility] complaining of negative reactions to chemotherapy that have been present for 2 weeks as well as hematemesis this afternoon, 02/15/19. Patient responded well to his first cycle of chemotherapy but has been experiencing loss of appetite and limited mobility since starting his second cycle 2 weeks ago. During this period he has experienced nausea and loss of appetite as well. Patient is coughing in the room. Patient has been dehydrated previously and was advised by a nurse to be seen by a medical provider for fluids. He also has chronic back pain and liver lesions. He is taking 5mg oxycodone for his back pain and takes Tylenol BID. - History Of Current Complaint Chief Complaint: EDAbdPain Time Seen by Provider: 02/15/19 16:15 Hx Obtained From: Patient, Family/Acid Condenser Onset/Duration: Lasting Weeks, Still Present Timing: Weeks Location: Pain At: - back Associated Signs And Symptoms: Positive: Cough, Nausea, Back Pain, Hematemesis, Other - positive - decreased appetite, limited mobility Related History: Recent Illness - esophageal cancer - Allergies/Home Medications Allergies/Adverse Reactions: Allergies Allergy/AdvReac Type Severity Reaction Status Date / Time Environmental allergies Allergy Eyes Uncoded 02/15/19 16:28 Itchy/Swollen/Red/Watery Home Medications: Home Medications Prochlorperazine TAB* [Compazine Tab*] 5 mg PO Q6H PRN 02/15/19 [History Confirmed 02/15/19] PMH/Surg Hx/FS Hx/Imm Hx Endocrine/Hematology History: Reports: Hx Diabetes - Type 2 Cardiovascular History: Reports: Hx Angina, Hx Congestive Heart Failure, Hx Coronary Artery Disease, Hx Hypercholesterolemia, Hx Hypertension - on medications, Other Cardiovascular Problems/Disorders - DR. BOSWELL FOLLOWS PATIENT Denies: Hx Myocardial Infarction, Hx Pacemaker/ICD, Hx Valvular Heart Disease Respiratory History: Reports: Hx Asthma, Hx Pneumonia, Hx Pulmonary Embolism - PE 12/06-Lovenox, Hx Seasonal Allergies, Hx Sleep Apnea Denies: Hx Chronic Obstructive Pulmonary Disease (COPD), Other Respiratory Problems/Disorders GI History: Reports: Hx Jaundice - A TEEN Denies: Other GI Disorders History: Denies: Hx Kidney Stones, Hx Renal Disease, Other Problems/Disorders Musculoskeletal History: Reports: Hx Arthritis - RIGHT KNEE, LEFT SHOULDER, Hx Back Problems, Hx Tendonitis - RIGHT ELBOW, LEFT SHOULDER, Other Musculoskeletal History - has gout- no attack in over 1 year Sensory History: Reports: Hx Cataracts - BILATERAL EXTRACTIONS, Hx Contacts or Glasses - Glasses Denies: Hx Hearing Aid, Hx Hearing Problem, Other Sensory Impairments Opthamlomology History: Reports: Hx Cataracts - BILATERAL EXTRACTIONS, Hx Contacts or Glasses - Glasses Denies: Other Sensory Impairments Neurological History: Reports: Hx Headaches Denies: Other Neuro Impairments/Disorders - Cancer History Cancer Type, Location and Year: esophageal Hx Chemotherapy: Yes - CURRENTLY RECEIVING Hx Radiation Therapy: No - Surgical History Surgery Procedure, Year, and Place: APPENDECTOMY-2006. Bilataral cataracts with IOL 2015. Cardiac stent after stemi 2015. Papilomas removed from eyelids - both 2014 approx. Colonoscopy Hx Anesthesia Reactions: No Infectious Disease History: No Infectious Disease History: Denies: Traveled Outside the [place] in Last 30 Days - Family History Known Family History: Negative: Cardiac Disease, Diabetes - Social History Alcohol Use: Rare Hx Substance Use: No Substance Use Type: Reports: None Hx Tobacco Use: No Smoking Status (MU): Never Smoked Tobacco Have You Smoked in the Last Year: No Review of Systems Constitutional: Other - positive - limited mobility Positive: Cough - cough present in room Gastrointestinal: Other - positive - decreased appetite Positive: Vomiting - hematemesis, Nausea Positive: Myalgia - back All Other Systems Reviewed And Are Negative: Yes Physical Exam - Summary Physical Exam Summary: Appearance: The patient is morbidly obese in no acute distress and in no acute pain. Skin: The skin is warm and dry, but pale. HEENT: The head is normocephalic and atraumatic. The pupils are equal and reactive. The conjunctivae are clear and without drainage. Nares are patent and without drainage. Mouth reveals moist mucous membranes, and the throat is without erythema and exudate. The external ears are intact. The ear canals are patent and without drainage. The tympanic membranes are intact. Neck: The neck is supple with full range of motion and non-tender. There are no carotid bruits. There is no neck vein distension. Respiratory: Chest is non-tender. Lungs are clear to auscultation and breath sounds are symmetrical and equal. Cardiovascular: Heart is regular rate and rhythm. There is no murmur or rub auscultated. There is no peripheral edema and pulses are symmetrical and equal. Abdomen: The abdomen is soft and non-tender. There are normal bowel sounds heard in all four quadrants and there is no organomegaly palpated. Musculoskeletal: There is no back tenderness noted. Extremities are non-tender with full range of motion. There is good capillary refill. There is no peripheral edema or calf tenderness elicited. Neurological: Patient is alert and oriented to person, place and time. The patient has symmetrical motor strength in all four extremities. Cranial nerves are grossly intact. Deep tendon reflexes are symmetrical and equal in all four extremities. Psychiatric: The patient has an appropriate affect and does not exhibit any anxiety or depression. Triage Information Reviewed: Yes Vital Signs On Initial Exam: Initial Vitals Temp Pulse Resp BP Pulse Ox 97.6 F 65 17 97/59 99 02/15/19 16:09 02/15/19 16:09 02/15/19 16:09 02/15/19 16:09 02/15/19 16:09 Vital Signs Reviewed: Yes Procedures - Sedation Patient Received Moderate/Deep Sedation with Procedure: No Diagnostics - Vital Signs Vital Signs Temp Pulse Resp BP Pulse Ox 02/15/19 16:09 97.6 F 65 17 97/59 99 - Laboratory Result Diagrams: 02/16/19 09:52 02/16/19 09:52 Lab Statement: Any lab studies that have been ordered have been reviewed, and results considered in the medical decision making process. Complex Multi-Symp Course/Dx Course Of Treatment: Mr. Lazar severely dehydrated on arrival here. He got a couple of liters in the emergency department and did feel somewhat improved. However he was still too weak to get up and move around and asked the hospitalist to evaluate him for admission. While he was here he did pass some guaiac positive stool - Diagnoses Provider Diagnoses: GI bleed, Severe dehydration - Physician Notifications Discussed Care Of Patient With: Westley Lee Time Discussed With Above Provider: 20:48 Instructed by Provider To: Other - Patient's case was discussed with Dr. Lee, Dr. Lee accepts the patient for admission. Discharge ED - Sign-Out/Discharge Documenting (check all that apply): Patient Departure - admit - Discharge Plan Condition: Stable Disposition: ADMITTED TO [facility] - Billing Disposition and Condition Condition: STABLE Disposition: Admitted to [facility] - Attestation Statements Document Initiated by Scribe: Yes Documenting Scribe: KEITH SOLORZANO Provider For Whom Julioibarnaud is Documenting (Include Credential): MATIAS QUINTANILLA MD Scribe Attestation: I, KEITH SOLORZANO, scribed for MATIAS QUINTANILLA MD on 02/16/19 at 1428. Scribe Documentation Reviewed: Yes Provider Attestation: The documentation as recorded by the KEITH dietz accurately reflects the service I personally performed and the decisions made by me, MATIAS QUINTANILLA MD Status of Scribe Document: Viewed
[2019-02-15] MEDS ORDERED: PROCHLORPERAZINE INJ 5 MG/ML 2 ML VIAL IV ONE (16:57)
[2019-02-15 17:01] LABS: Albumin 2.7 g/dL (3.2-5.2); BUN/Creatinine Ratio 15.7 (8-20); C Reactive Protein 92.41 mg/L (<8.01); Calcium 7.8 mg/dL (8.6-10.3); EGFR African American 45.8 (>60); EGFR Non-African American 37.9 (>60); Globulin 2.7 g/dL (2-4); Potassium 3.6 mmol/L (3.5-5.0); Total Bilirubin 0.7 mg/dL (0.2-1.0); Total Protein 5.4 g/dL (6.4-8.9)
[2019-02-15 17:20] LABS: ABS Lymphocytes 1.3 10^3/ul (1.0-4.8); ABS Monocytes 0.7 10^3/ul (0-0.8); ABS Neutrophils 3.2 10^3/ul (1.5-7.7); Eosinophil % 0.4 %; Hematocrit 29 % (42-52); Hemoglobin 9.4 g/dL (14.0-18.0); Lymphocyte % 24.2 %; Mean Corpuscular HGB Conc 33 g/dL (31-36); Mean Corpuscular Hemoglobin 29 pg (27-31); Mean Corpuscular Volume 88 fL (80-94); Mean Platelet Volume 8.6 fL (7.4-10.4); Nucleated Red Blood Cells % 0.1; Platelet Count 95 10^3/uL (150-450); Polychromasia 1+; Red Blood Count 3.25 10^6 /uL (4.18-5.48); Red Cell Distribution Width 20 % (10-15); White Blood Count 5.2 10^3/uL (3.5-10.8)
[2019-02-15 22:57] LABS: Hematocrit 29 % (42-52); Hemoglobin 9.3 g/dL (14.0-18.0); Mean Corpuscular HGB Conc 32 g/dL (31-36); Mean Corpuscular Hemoglobin 29 pg (27-31); Mean Corpuscular Volume 90 fL (80-94); Mean Platelet Volume 8.8 fL (7.4-10.4); Platelet Count 87 10^3/uL (150-450); Red Blood Count 3.18 10^6 /uL (4.18-5.48); Red Cell Distribution Width 20 % (10-15); White Blood Count 5.6 10^3/uL (3.5-10.8)
[2019-02-15 23:12] LABS: BUN/Creatinine Ratio 16.4 (8-20); Calcium 7.5 mg/dL (8.6-10.3); EGFR African American 46.1 (>60); EGFR Non-African American 38.1 (>60)
[2019-02-15] MEDS ORDERED: NS 0.9% 1000 ML** 1,000 ML IV SCH (23:15)
[2019-02-15 23:21] LABS: Polychromasia 1+
[2019-02-15 23:22] LABS: ABS Lymphocytes 1.2 10^3/ul (1.0-4.8); ABS Monocytes 0.7 10^3/ul (0-0.8); ABS Neutrophils 3.6 10^3/ul (1.5-7.7); Eosinophil % 0.3 %; Lymphocyte % 21.1 %; Nucleated Red Blood Cells % 0.1
[2019-02-16] MEDS: Pantoprazole IV* 40 MG IV SCH ×3 (01:12→20:57)
[2019-02-16 02:32] LABS: INR 4.21 (0.82-1.09)
--- NOTE | 2019-02-16 02:32 | HP ---
CC: Dr. iAden Ramirez; Dr. Jesús De La Paz* ADMISSION HISTORY AND PHYSICAL: DATE OF ADMISSION: 02/15/19 PRIMARY CARE PHYSICIAN: Dr. Jesús De La Paz. ONCOLOGIST: Dr. Aiden Ramirez. CHIEF COMPLAINT: Bloody vomiting. HISTORY OF PRESENT ILLNESS: This is a 73-year-old male with past medical history of coronary artery disease, status post stenting; hypertension; dyslipidemia; type 2 diabetes; liver disease; obstructive sleep apnea, on CPAP; gout, recently diagnosed with esophageal cancer for which he was receiving chemotherapy and also newly diagnosed DVT and PE as of November, on anticoagulation with Eliquis. He came in to the ER for vomiting of blood. The patient was in his usual state of health, has received his last chemo 2 weeks ago and is due for another next dose about another week; however, for the last 1 week, his noticed that he has been having decreased p.o. intake and for the last 2 days, he has had decreased mobility. Normally, he used to able to be walking with his walker, but he is unable to do so now. So, called his cancer specialist, Dylon, who recommended the patient to come to the ER as the patient may be developing dehydration. Today, the patient also started having vomiting that was noted to be bloody. So, he finally was brought in to the ER for further evaluation. The patient also stated that he has been having abdominal pain, nausea, and recurrent diarrhea for the last few days as well. Diarrhea is colored dark tarry in nature and the pain is located in the periumbilical area, nonradiating. He had a total of 3 episodes of bloody vomiting, 1 at home and 2 in the ER. He otherwise offers no chest pain, no shortness of breath. He does state that his legs feel weaker and he has been developing tingling sensation in fingertips. also noted that the patient has been having some memory issues at times. PAST MEDICAL HISTORY: As mentioned coronary artery disease, status post stenting in May of 2015; hypertension; dyslipidemia; type 2 diabetes; liver disease with recently known metastasis to the liver from the esophageal cancer; he also has history of hepatitis as a teenager, but unclear the genotype; history of sleep apnea, on CPAP; heart disease; gout; history of DVT and PE diagnosed in November 2018, on Eliquis. PAST SURGICAL HISTORY: He has had cataract removal bilaterally in fall ; cardiac stent as mentioned; appendectomy; left side PowerPort placement for his chemotherapy. HOME MEDICATIONS: The ones listed include: 1. Compazine 5 mg p.o. q.6 hours. 2. Lisinopril 40 mg every morning and 20 at bedtime. 3. Aspirin 81 mg oral daily. 4. Allopurinol 300 mg daily evening. 5. Tylenol Extra Strength 1000 mg p.o. b.i.d. 6. OxyContin 1 tablet p.o. b.i.d. 7. Metformin 1000 mg p.o. b.i.d. 8. Rosuvastatin 20 mg q.a.m. 9. Potassium chloride 20 mEq every morning. 10. Omeprazole 40 mg every morning. 11. Metoprolol 75 mg p.o. b.i.d. ALLERGIES: The patient is allergic to some environmental allergies including POLLEN and DUST MITE. FAMILY HISTORY: Father at age 61 with colon cancer and mother at age 74 with multiple myeloma. SOCIAL HISTORY: He lives with his spouse. Denies ever having any smoking or drug use. He does drink alcohol occasionally; the patient, however, is unable to recollect the last time he drank and even the states that it was very long time ago. 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 He is otherwise full code with his , Rosanna, being the healthcare proxy. PHYSICAL EXAMINATION GENERAL: The patient is awake, alert, and oriented x3, does not appear to be in any acute respiratory distress. VITAL SIGNS: In the ER, BP was noted to be 100/50, heart rate 69, respiration rate 14, saturating 98% on room air, temperature was recorded at 97.7. HEAD AND NECK: Atraumatic, normocephalic. Bilateral pupils are reactive. Oral mucosa: The patient had dried blood on the roof of the mouth with very dry tongue and mucous membranes. Neck: Supple. No jugular venous distention. LUNGS: Clear to auscultation bilaterally. No wheezing, rhonchi, or rales. HEART: S1, S2. Regular rate and rhythm. ABDOMEN: Soft, obese with minimal tenderness in the periumbilical area and epigastric area. EXTREMITIES: No cyanosis, clubbing, or edema. LABORATORY DATA: CBC was remarkable for mild anemia with hemoglobin of 9.4, hematocrit 29, platelet count was noted to be 95. Comprehensive metabolic panel shows elevated BUN at 28, creatinine elevated at 1.7. Lactic acid normal at 1.7. Albumin 2.7. C-reactive protein 92. Alkaline phosphatase was 822. Stool occult was noted to be positive. IMPRESSION: This is a 73-year-old man with history of myocardial infarction, on aspirin; history of deep venous thrombosis, pulmonary embolism, on Eliquis; history of gastroesophageal reflux disease; recent esophageal cancer, here due to bloody vomiting and diarrhea with stool occult being positive. ASSESSMENT AND PLAN: 1. Acute blood loss anemia. When evaluating his hemoglobin from 02/02/19 to now, there is overall 1 g drop in hemoglobin, likely secondary to gastrointestinal bleed. We will start the patient on IV Protonix. The other reason could be from his esophageal cancer. We will consider GI consult in the morning and get serial CBCs and obtain type and screen for a.m. We will also hold his aspirin as well as his Eliquis. 2. Acute kidney injury, likely secondary to dehydration. When compared to his baseline creatinine, this is a significant jump from 0.97 to 1.78. Continue with IV hydration. We will hold his home dose of lisinopril and any another nephrotoxic agents. 3. History of hypertension. Currently, normotensive to hypotensive. We will hold the lisinopril as mentioned. We will continue metoprolol but withholding parameters. 4. History of diabetes. The patient is already n.p.o. for possible GI intervention. We will just place fingersticks monitoring and consider sliding scale if the fingersticks are elevated. 5. History of dyslipidemia. We will hold his statin. 6. History of esophageal cancer with liver metastasis. 7. History of coronary artery disease. 8. History of obstructive sleep apnea. Continue his CPAP. 9. History of deep vein thrombosis and pulmonary embolism. We will hold his Eliquis as mentioned. 10. Code status. The patient is full code. [id number]/[facility] #: [id number] [facility]
[2019-02-16 05:51] LABS: Urine Appearance Turbid; Urine Bilirubin Negative (Negative); Urine Blood 2+ (Negative); Urine Color Amber; Urine Glucose Negative (Negative); Urine Ketones Trace (Negative); Urine Nitrite Negative (Negative); Urine Protein 2+(100 mg/dL) (Negative); Urine Specific Gravity 1.023 (1.010-1.030); Urine Urobilinogen Negative (Negative)
[2019-02-16 06:05] LABS: Urine Bacteria 1+ (Absent); Urine Granular Casts Present (Absent); Urine Red Blood Cell 3+(>10/hpf) (Absent); Urine Squamous Epithelial Cell Present (Absent); Urine White Blood Cell 3+(>20/hpf) (Absent)
[2019-02-16 06:11] LABS: Hematocrit 25 % (42-52); Hemoglobin 8.2 g/dL (14.0-18.0); Mean Corpuscular HGB Conc 33 g/dL (31-36); Mean Corpuscular Hemoglobin 30 pg (27-31); Mean Corpuscular Volume 89 fL (80-94); Mean Platelet Volume 8.5 fL (7.4-10.4); Platelet Count 74 10^3/uL (150-450); Red Blood Count 2.77 10^6 /uL (4.18-5.48); Red Cell Distribution Width 20 % (10-15); White Blood Count 5.9 10^3/uL (3.5-10.8)
[2019-02-16 06:17] LABS: Calcium 7.4 mg/dL (8.6-10.3); EGFR African American 47.7 (>60); EGFR Non-African American 39.4 (>60); Potassium 3.5 mmol/L (3.5-5.0)
[2019-02-16 06:34] LABS: Polychromasia 1+
[2019-02-16 06:35] LABS: ABS Lymphocytes 1.2 10^3/ul (1.0-4.8); ABS Monocytes 0.6 10^3/ul (0-0.8); Eosinophil % 0.4 %; Lymphocyte % 20.4 %; Nucleated Red Blood Cells % 0.1
[2019-02-16] MEDS ORDERED: Lisinopril TAB* 10 MG PO SCH ×2 (09:00→21:00)
[2019-02-16] MEDS ORDERED: Metoprolol Succinate XL TAB* 25 MG PO SCH (09:00)
--- NOTE | 2019-02-16 09:58 | PN ---
Progress Note - Progress Note Date of Service: 02/16/19 SOAP: Subjective: []Bloody nose for two days then started vomiting blood yesterday am. In ER decreased Hgb and increased INR/PTT. Admission and RX IVF. Today breathing better then yesterday, feels poorly. Very weak, throat hurts, still bloody nose. Heparin Sodium (Porcine) (Heparin Flush Port (Ivad)) 5 ml FLUSH 0600 [facility]; Protocol Last Admin: 02/16/19 05:47 Dose: Not Given Sodium Chloride (Ns 0.9% 1000 Ml) 1,000 mls @ 125 mls/hr IV PER RATE [facility] Last Admin: 02/16/19 01:12 Dose: 125 mls/hr Metoprolol Succinate (Toprol Xl Tab*) 75 mg PO BID [facility]IN Oxycodone HCl (Oxycontin(*)) 20 mg PO BID CARIN Pantoprazole Sodium (Protonix Iv*) 40 mg IV 0900,2100 [facility] Last Admin: 02/16/19 09:22 Dose: 40 mg Potassium Chloride (Klor Con Er Tab*) 20 meq PO QAM [facility] Prochlorperazine Edisylate (Compazine Inj*) 10 mg IV Q6H PRN PRN Reason: NAUSEA/VOMITING Objective: [] Vital Signs Temp Pulse Resp BP Pulse Ox 97.6 F 62 18 114/60 98 02/16/19 02:53 02/16/19 02:53 02/16/19 02:53 02/16/19 02:53 02/16/19 02:53 HEENT: OM dry, pale CTA BL RRR S1S2 an in 80s +BS NT ND ext no c/c/e Assessment: []73 year old metastatic esophageal cancer on second line therapy. Admission with hemoptysis, increased PT and PTT on Eliquis. DDx: Eliquis toxicity, progressive erosion of esophageal mass. Improved today but continued bloody nose. Still SOB, weak. Plan: []1. PT, PTT and CBC STAT now 2. If increased PT or PTT or additional hemoptysis, will give Andexanet ajith low dose. 3. Transfuse for Hgb < 8.0 4. Check CXR 5. Bleeding appears to have stopped, clear liquid diet 6. PT if not discharged tomorrow. 7. Chemotherapy on 02/02, do not expect decrease in blood counts.
[2019-02-16 10:01] LABS: Hematocrit 27 % (42-52); Hemoglobin 8.9 g/dL (14.0-18.0); Mean Corpuscular HGB Conc 33 g/dL (31-36); Mean Corpuscular Hemoglobin 29 pg (27-31); Mean Corpuscular Volume 89 fL (80-94); Mean Platelet Volume 8.4 fL (7.4-10.4); Platelet Count 90 10^3/uL (150-450); Red Blood Count 3.07 10^6 /uL (4.18-5.48); Red Cell Distribution Width 20 % (10-15); White Blood Count 7.1 10^3/uL (3.5-10.8)
[2019-02-16 10:08] LABS: Activated Partial Thrombo Time 39.8 seconds (26.0-38.0)
[2019-02-16 10:23] LABS: BUN/Creatinine Ratio 18.2 (8-20); Calcium 7.5 mg/dL (8.6-10.3); EGFR African American 48.3 (>60); EGFR Non-African American 39.9 (>60); Potassium 3.5 mmol/L (3.5-5.0)
[2019-02-16] MEDS: Potassium Chlor TAB* 20 MEQ TAB.ER PO SCH (10:39)
[2019-02-16] MEDS: oxyCODONE SR TAB(*) 20 MG TAB.SR PO SCH ×2 (10:39→20:55)
[2019-02-16 10:42] LABS: ABS Lymphocytes 1.4 10^3/ul (1.0-4.8); ABS Monocytes 0.7 10^3/ul (0-0.8); ABS Neutrophils 4.9 10^3/ul (1.5-7.7); Eosinophil % 0.2 %; Lymphocyte % 19.7 %
[2019-02-16] MEDS: Metoprolol Succinate XL TAB* 25 MG PO SCH ×2 (10:44→20:54)
[2019-02-16] MEDS: NS 0.9% 1000 ML** 1,000 ML IV SCH ×2 (10:47→17:59)
[2019-02-16 14:44] LABS: Activated Partial Thrombo Time 34.7 seconds (26.0-38.0); INR 1.55 (0.82-1.09)
[2019-02-17] MEDS: NS 0.9% 1000 ML** 1,000 ML IV SCH ×3 (01:12→10:57)
[2019-02-17 06:48] LABS: Hematocrit 24 % (42-52); Hemoglobin 7.8 g/dL (14.0-18.0); Mean Corpuscular HGB Conc 32 g/dL (31-36); Mean Corpuscular Hemoglobin 29 pg (27-31); Mean Corpuscular Volume 89 fL (80-94); Mean Platelet Volume 8.8 fL (7.4-10.4); Platelet Count 77 10^3/uL (150-450); Red Blood Count 2.71 10^6 /uL (4.18-5.48); Red Cell Distribution Width 20 % (10-15); White Blood Count 7.4 10^3/uL (3.5-10.8)
[2019-02-17 06:55] LABS: Activated Partial Thrombo Time 34.1 seconds (26.0-38.0); INR 1.89 (0.82-1.09)
[2019-02-17] MEDS: oxyCODONE SR TAB(*) 20 MG TAB.SR PO SCH ×2 (08:10→20:03)
[2019-02-17] MEDS: Potassium Chlor TAB* 20 MEQ TAB.ER PO SCH (08:11)
[2019-02-17] MEDS: Pantoprazole IV* 40 MG IV SCH ×2 (08:11→20:04)
[2019-02-17] MEDS: Metoprolol Succinate XL TAB* 25 MG PO SCH ×2 (08:12→20:02)
[2019-02-17 08:36] LABS: ABS Lymphocytes 1.2 10^3/ul (1.0-4.8); ABS Monocytes 0.7 10^3/ul (0-0.8); ABS Neutrophils 5.5 10^3/ul (1.5-7.7); Eosinophil % 0.1 %; Lymphocyte % 15.8 %; Nucleated Red Blood Cells % 0.1
[2019-02-17 12:06] LABS: Calcium 7.2 mg/dL (8.6-10.3); EGFR African American 54.6 (>60); EGFR Non-African American 45.1 (>60); Potassium 3.4 mmol/L (3.5-5.0)
[2019-02-17] MEDS ORDERED: Polyethylene Glycol 3350* 17 GM PACKET PO PRN (20:20)
[2019-02-18] MEDS: NS 0.9% 1000 ML** 1,000 ML IV SCH (02:39)
--- NOTE | 2019-02-18 03:57 | PN ---
Hospitalist Progress Note Date of Service: 02/18/19 Called to bedside as Pt reportedly told RN he was SOB. Pt tells me that he was very SOB 02/17 AM but is feeling better now. SOB happens intermittently - just could not get comfortable. Currently on nasal bipap with good sats. BP 120/70 manually. Denies chest pain, light headedness, dizziness. No hemoptysis. s/p 1u prbc today for hgb 7.8. Has not been rechecked since. Lungs CTAB, trace edema b/l. EF 55-60% with RVSP 53mmHg on 12/02/18. Plan to get AM labs: CBC and BMP now. stop NS 75cc/hr for now.
[2019-02-18 04:28] LABS: Hematocrit 25 % (42-52); Hemoglobin 8.3 g/dL (14.0-18.0); Mean Corpuscular HGB Conc 33 g/dL (31-36); Mean Corpuscular Hemoglobin 29 pg (27-31); Mean Corpuscular Volume 88 fL (80-94); Mean Platelet Volume 8.8 fL (7.4-10.4); Platelet Count 84 10^3/uL (150-450); Red Blood Count 2.84 10^6 /uL (4.18-5.48); Red Cell Distribution Width 19 % (10-15)
[2019-02-18 04:33] LABS: BUN/Creatinine Ratio 21.2 (8-20); Calcium 7.2 mg/dL (8.6-10.3); EGFR African American 64.7 (>60); EGFR Non-African American 53.5 (>60); Potassium 3.2 mmol/L (3.5-5.0)
[2019-02-18 05:07] LABS: ABS Lymphocytes 1.2 10^3/ul (1.0-4.8); ABS Monocytes 0.6 10^3/ul (0-0.8); ABS Neutrophils 7.2 10^3/ul (1.5-7.7); Eosinophil % 0.1 %; Lymphocyte % 12.8 %
[2019-02-18] MEDS: Pantoprazole IV* 40 MG IV SCH ×2 (08:00→19:51)
[2019-02-18] MEDS: Potassium Chlor TAB* 20 MEQ TAB.ER PO SCH (08:01)
[2019-02-18] MEDS: oxyCODONE SR TAB(*) 20 MG TAB.SR PO SCH ×2 (08:01→19:50)
[2019-02-18] MEDS: Metoprolol Succinate XL TAB* 25 MG PO SCH ×2 (08:06→19:48)
[2019-02-18 13:45] LABS: Urine Appearance Cloudy; Urine Bilirubin Negative (Negative); Urine Blood 2+ (Negative); Urine Color Yellow; Urine Glucose Negative (Negative); Urine Ketones Negative (Negative); Urine Nitrite Negative (Negative); Urine Protein 2+(100 mg/dL) (Negative); Urine Specific Gravity 1.017 (1.010-1.030); Urine Urobilinogen Negative (Negative)
[2019-02-18 13:48] LABS: Urine Bacteria Absent (Absent); Urine Red Blood Cell 3+(>10/hpf) (Absent); Urine Squamous Epithelial Cell Present (Absent); Urine White Blood Cell 3+(>20/hpf) (Absent)
[2019-02-18] MEDS ORDERED: NS 0.9% 1000 ML** 1,000 ML IV SCH (19:45)
[2019-02-18] MEDS ORDERED: NS 0.9% 250 ML* 250 ML IVPB ONE (19:45)
[2019-02-18 21:33] LABS: Activated Partial Thrombo Time 35.2 seconds (26.0-38.0); INR 2.46 (0.82-1.09)
[2019-02-19 06:48] LABS: INR 1.28 (0.82-1.09)
[2019-02-19 07:15] LABS: Hematocrit 26 % (42-52); Hemoglobin 8.8 g/dL (14.0-18.0); Mean Corpuscular HGB Conc 33 g/dL (31-36); Mean Corpuscular Hemoglobin 29 pg (27-31); Mean Corpuscular Volume 87 fL (80-94); Mean Platelet Volume 9.4 fL (7.4-10.4); Platelet Count 78 10^3/uL (150-450); Red Blood Count 3.01 10^6 /uL (4.18-5.48); Red Cell Distribution Width 19 % (10-15); White Blood Count 11.7 10^3/uL (3.5-10.8)
[2019-02-19 07:27] LABS: ABS Lymphocytes 1.4 10^3/ul (1.0-4.8); ABS Monocytes 0.7 10^3/ul (0-0.8); ABS Neutrophils 9.5 10^3/ul (1.5-7.7); Eosinophil % 0.1 %; Lymphocyte % 11.6 %; Nucleated Red Blood Cells % 0.1
[2019-02-19 07:56] VITALS: BP 125/69
[2019-02-19] MEDS ORDERED: Lorazepam PYXIS KEY PRN (08:50)
[2019-02-19] MEDS ORDERED: LORazepam INJ* 2 MG/ML 1 ML VIAL IV PUSH PRN (08:50)
[2019-02-19] MEDS ORDERED: Ondansetron INJ* 2 MG/ML VIAL IV PRN (08:51)
--- NOTE | 2019-02-19 09:07 | PN ---
Progress Note - Progress Note Date of Service: 02/19/19 SOAP: Subjective: []Events of last night reviewed. Blaine is incredibly frustrated. Feels his care has been suboptimal, though is unclear to me why. Certainly frustrated with long night of interventions. Tells me he is in pain. States he knows he is dying, "lets just get on with it then." Per nursing emesis this AM had clot/tissue appearance. Has not been OOB since admission. Spoke with , Rosanna, over the phone. She understands his underlying disease process and reality of his decline. Sad, but state, "I knew this was coming." Medications: Sodium Chloride (Ns 0.9% 1000 Ml) 1,000 mls @ 75 mls/hr IV PER RATE [facility] Last Admin: 02/18/19 19:59 Dose: 75 mls/hr Lorazepam (Ativan Inj*) 0.5 mg IV PUSH Q4H PRN PRN Reason: Anxiety/nausea/insomnia Metoprolol Succinate (Toprol Xl Tab*) 75 mg PO BID [facility] Last Admin: 02/18/19 19:48 Dose: Not Given Miscellaneous (Ativan Pyxis Phillips) 1 ea N/A .ATIVAN IV PHILLIPS PRN PRN Reason: PYXIS PHILLIPS Morphine Sulfate (Morphine 4 Mg/Ml Vial (1 Ml)) 2 mg IV Q2H PRN PRN Reason: PAIN - SEVERE Morphine Sulfate (Morphine Oral Concentrate*) 5 mg PO Q2H PRN PRN Reason: Pain - Severe or SOB Ondansetron HCl (Zofran Inj*) 4 mg IV Q4H PRN PRN Reason: NAUSEA/VOMITING Oxycodone HCl (Oxycontin(*)) 20 mg PO BID [facility] Last Admin: 02/18/19 19:50 Dose: 20 mg Pantoprazole Sodium (Protonix Iv*) 40 mg IV 0900,2100 [facility] Last Admin: 02/18/19 19:51 Dose: 40 mg Polyethylene Glycol/Electrolytes (Miralax*) 17 gm PO DAILY PRN PRN Reason: CONSTIPATION Potassium Chloride (Klor Con Er Tab*) 20 meq PO QAM [facility] Last Admin: 02/18/19 08:01 Dose: 20 meq Prochlorperazine Edisylate (Compazine Inj*) 10 mg IV Q6H PRN PRN Reason: NAUSEA/VOMITING Objective: [] Vital Signs Temp Pulse Resp BP Pulse Ox 98 F 105 20 125/69 98 02/19/19 07:30 02/19/19 07:30 02/19/19 07:30 02/19/19 07:30 02/19/19 07:30 A&O, forgetful HRR, ectopy noted, tachy, tele Sinus arrhythmia LS dim., tachypnea Obese Laboratory Results - last 24 hr 02/16/19 02/18/19 02/18/19 05:29 11:57 12:50 WBC RBC Hgb Hct MCV MCH MCHC RDW Plt Count MPV Neut % (Auto) Lymph % (Auto) Boyle % (Auto) Eos % (Auto) Baso % (Auto) Absolute Neuts (auto) Absolute Lymphs (auto) Absolute Monos (auto) Absolute Eos (auto) Absolute Basos (auto) Absolute Nucleated RBC Nucleated RBC % INR (Anticoag Therapy) APTT POC Glucose (mg/dL) 186 H Urine Color Yellow Urine Appearance Cloudy Urine pH 5.0 Ur Specific [place] 1.017 Urine Protein 2+(100 mg/dl) A Urine Ketones Negative Urine Blood 2+ A Urine Nitrate Negative Urine Bilirubin Negative Urine Urobilinogen Negative Ur Leukocyte Esterase 1+ A Urine WBC (Auto) 3+(>20/hpf) A Urine RBC (Auto) 3+(>10/hpf) A Ur Squamous Epith Cells Present A Amorphous Crystals Present A Urine Bacteria Absent Urine Glucose Negative Blood Type A Positive Antibody Screen Negative Crossmatch See Detail 02/18/19 02/18/19 02/19/19 17:28 21:19 00:21 WBC RBC Hgb Hct MCV MCH MCHC RDW Plt Count MPV Neut % (Auto) Lymph % (Auto) Boyle % (Auto) Eos % (Auto) Baso % (Auto) Absolute Neuts (auto) Absolute Lymphs (auto) Absolute Monos (auto) Absolute Eos (auto) Absolute Basos (auto) Absolute Nucleated RBC Nucleated RBC % INR (Anticoag Therapy) 2.46 H APTT 35.2 POC Glucose (mg/dL) 147 H 162 H Urine Color Urine Appearance Urine pH Ur Specific [place] Urine Protein Urine Ketones Urine Blood Urine Nitrate Urine Bilirubin Urine Urobilinogen Ur Leukocyte Esterase Urine WBC (Auto) Urine RBC (Auto) Ur Squamous Epith Cells Amorphous Crystals Urine Bacteria Urine Glucose Blood Type Antibody Screen Crossmatch 02/19/19 02/19/19 02/19/19 06:13 06:30 06:30 WBC 11.7 H RBC 3.01 L Hgb 8.8 L Hct 26 L MCV 87 MCH 29 MCHC 33 RDW 19 H Plt Count 78 L MPV 9.4 Neut % (Auto) 81.8 Lymph % (Auto) 11.6 Boyle % (Auto) 6.4 Eos % (Auto) 0.1 Baso % (Auto) 0.1 Absolute Neuts (auto) 9.5 H Absolute Lymphs (auto) 1.4 Absolute Monos (auto) 0.7 Absolute Eos (auto) 0.0 Absolute Basos (auto) 0.0 Absolute Nucleated RBC 0.0 Nucleated RBC % 0.1 INR (Anticoag Therapy) 1.28 H APTT POC Glucose (mg/dL) 172 H Urine Color Urine Appearance Urine pH Ur Specific [place] Urine Protein Urine Ketones Urine Blood Urine Nitrate Urine Bilirubin Urine Urobilinogen Ur Leukocyte Esterase Urine WBC (Auto) Urine RBC (Auto) Ur Squamous Epith Cells Amorphous Crystals Urine Bacteria Urine Glucose Blood Type Antibody Screen Crossmatch Assessment: []73 yo obese male with metastatic esophageal cancer most recently on second line therapy admitted with GI Bleed that unfortunately appears to be at the primary tumor site, slow response despite attempt at medical reversal of anticoagulation. At this time his performance status does not support a return to therapy and with persistent bleeding I recommend a transition to EOL care, he is agreeable to this and even appreciative, his is in agreement as well. Plan: []Transition to comfort measures: life expectancy weeks at most - palliative care consult, request this occurs ~1400 with present - d/c tele, d/c fluids - start PO morphine, add IV for when unable to take PO, consider inc. long acting tomorrow dependent on PRN needs - start IV ativan for anxiety & nausea DNR/DNI Dispo: will need hospice - not a candidate to go home as can not provide care for him
[2019-02-19] MEDS: Pantoprazole IV* 40 MG IV SCH ×2 (09:12→21:15)
[2019-02-19] MEDS: Morphine ORAL CONCENTRATE* 5 MG/0.25 ML ORAL.SYRIN PO PRN ×3 (09:12→21:17)
[2019-02-19] MEDS: Potassium Chlor TAB* 20 MEQ TAB.ER PO SCH (09:12)
[2019-02-19] MEDS: PROCHLORPERAZINE INJ 5 MG/ML 2 ML VIAL IV PRN ×2 (09:12→21:18)
[2019-02-19] MEDS: oxyCODONE SR TAB(*) 20 MG TAB.SR PO SCH ×2 (09:13→21:08)
[2019-02-19] MEDS: Metoprolol Succinate XL TAB* 25 MG PO SCH ×2 (09:13→21:08)
--- NOTE | 2019-02-19 14:43 | CONSULT ---
Palliative / Hospice Consult Ordering Provider: Madison Morgan - PCP-[facility] Referal Reason: Goals of care/PEG/MS & oxy - Subjective Code Status: DNR Advance Directives Location: No Advance Directives MOLST Part A Completed: Yes - on chart MOLST Part E Completed:: Yes - on chart - History or Present Illness History or Present Illness: 73yo male with metastatic esophageal cancer presents with bloody vomit, decreased po intake and decreased activity. PMH-CAD s/p stent 2016, HTN, dyslipidemia, type 2 DM, liver disease and mets, obstructive sleep apnea on CPAP , gout, s/p DVT & PE on eliquis. 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 Studies CXR-linear bibasilar airspace opacification likely atelectasis, esophageal mass and mediport, H/H 8.8/26, plt 78, BUN/Cr 28/1.32, egfr 53.5, Ca 7.2, alb 2.7, INR 1.28 and CRP 92.41. Pt was admitted with Eliquis toxicity and progressive erosion of esphageal cancer, acute blood loss and acute kidney injury secondary to dehydration. He has had one prior ER visit and one prior hospitalization -12/05 for PE. ALl history is from pt, family and medical record. Lab Values: Abnormal Lab Results 02/16/19 02/18/19 02/18/19 05:29 17:28 21:19 WBC RBC Hgb Hct MCV MCH MCHC RDW Plt Count MPV Neut % (Auto) Lymph % (Auto) Norton % (Auto) Eos % (Auto) Baso % (Auto) Absolute Neuts (auto) Absolute Lymphs (auto) Absolute Monos (auto) Absolute Eos (auto) Absolute Basos (auto) Absolute Nucleated RBC Nucleated RBC % INR (Anticoag Therapy) 2.46 H APTT 35.2 POC Glucose (mg/dL) 147 H Blood Type A Positive Antibody Screen Negative Crossmatch See Detail 02/19/19 02/19/19 02/19/19 00:21 06:13 06:30 WBC 11.7 H RBC 3.01 L Hgb 8.8 L Hct 26 L MCV 87 MCH 29 MCHC 33 RDW 19 H Plt Count 78 L MPV 9.4 Neut % (Auto) 81.8 Lymph % (Auto) 11.6 Norton % (Auto) 6.4 Eos % (Auto) 0.1 Baso % (Auto) 0.1 Absolute Neuts (auto) 9.5 H Absolute Lymphs (auto) 1.4 Absolute Monos (auto) 0.7 Absolute Eos (auto) 0.0 Absolute Basos (auto) 0.0 Absolute Nucleated RBC 0.0 Nucleated RBC % 0.1 INR (Anticoag Therapy) APTT POC Glucose (mg/dL) 162 H 172 H Blood Type Antibody Screen Crossmatch 02/19/19 06:30 WBC RBC Hgb Hct MCV MCH MCHC RDW Plt Count MPV Neut % (Auto) Lymph % (Auto) Norton % (Auto) Eos % (Auto) Baso % (Auto) Absolute Neuts (auto) Absolute Lymphs (auto) Absolute Monos (auto) Absolute Eos (auto) Absolute Basos (auto) Absolute Nucleated RBC Nucleated RBC % INR (Anticoag Therapy) 1.28 H APTT POC Glucose (mg/dL) Blood Type Antibody Screen Crossmatch Laboratory Last Values WBC 11.7 10^3/uL (3.5-10.8) H 02/19/19 06:30 RBC 3.01 10^6 /uL (4.18-5.48) L 02/19/19 06:30 Hgb 8.8 g/dL (14.0-18.0) L 02/19/19 06:30 Hct 26 % (42-52) L 02/19/19 06:30 MCV 87 fL (80-94) 02/19/19 06:30 MCH 29 pg (27-31) 02/19/19 06:30 MCHC 33 g/dL (31-36) 02/19/19 06:30 RDW 19 % (10-15) H 02/19/19 06:30 Plt Count 78 10^3/uL (150-450) L 02/19/19 06:30 MPV 9.4 fL (7.4-10.4) 02/19/19 06:30 Neut % (Auto) 81.8 % 02/19/19 06:30 Lymph % (Auto) 11.6 % 02/19/19 06:30 Norton % (Auto) 6.4 % 02/19/19 06:30 Eos % (Auto) 0.1 % 02/19/19 06:30 Baso % (Auto) 0.1 % 02/19/19 06:30 Absolute Neuts (auto) 9.5 10^3/ul (1.5-7.7) H 02/19/19 06:30 Absolute Lymphs (auto) 1.4 10^3/ul (1.0-4.8) 02/19/19 06:30 Absolute Monos (auto) 0.7 10^3/ul (0-0.8) 02/19/19 06:30 Absolute Eos (auto) 0.0 10^3/ul (0-0.6) 02/19/19 06:30 Absolute Basos (auto) 0.0 10^3/ul (0-0.2) 02/19/19 06:30 Absolute Nucleated RBC 0.0 10^3/ul 02/19/19 06:30 Immature Gran % 10.0 % (0-9) H 02/16/19 05:29 Neutrophils % 60.0 % 02/16/19 05:29 Band Neutrophils % 10.0 % (0-8) H 02/16/19 05:29 Lymphocytes % 20.0 % 02/16/19 05:29 Reactive Lymphs % 1.0 % (0-6) 02/15/19 16:37 Monocytes % 10.0 % 02/16/19 05:29 Metamyelocytes % 1.0 % (0-2) 02/15/19 22:48 Myelocytes % 2.0 % (0-1) H 02/15/19 22:48 Nucleated RBC % 0.1 02/19/19 06:30 Nucleated RBCs/100 WBC 1.0 (0-0) H 02/15/19 16:37 Toxic Granulation 1+ 02/15/19 22:48 Normal RBC Morphology Not Reportable 02/16/19 05:29 Polychromasia 1+ 02/16/19 05:29 Anisocytosis 2+ 02/16/19 05:29 Hem Pathologist Commnt 02/15/19 16:37 INR (Anticoag Therapy) 1.28 (0.82-1.09) H 02/19/19 06:30 APTT 35.2 seconds (26.0-38.0) 02/18/19 21:19 Sodium 144 mmol/L (135-145) 02/18/19 04:11 Potassium 3.2 mmol/L (3.5-5.0) L 02/18/19 04:11 Chloride 118 mmol/L (101-111) H 02/18/19 04:11 Carbon Dioxide 18 mmol/L (22-32) L 02/18/19 04:11 Anion Gap 8 mmol/L (2-11) 02/18/19 04:11 BUN 28 mg/dL (6-24) H 02/18/19 04:11 Creatinine 1.32 mg/dL (0.67-1.17) H 02/18/19 04:11 Est GFR ( Amer) 64.7 (>60) 02/18/19 04:11 Est GFR (Non-Af Amer) 53.5 (>60) 02/18/19 04:11 BUN/Creatinine Ratio 21.2 (8-20) H 02/18/19 04:11 Glucose 126 mg/dL (70-100) H 02/18/19 04:11 POC Glucose (mg/dL) 172 mg/dL (70-100) H 02/19/19 06:13 Lactic Acid 1.7 mmol/L (0.5-2.0) 02/15/19 16:37 Calcium 7.2 mg/dL (8.6-10.3) L 02/18/19 04:11 Total Bilirubin 0.70 mg/dL (0.2-1.0) 02/15/19 16:37 AST 38 U/L (13-39) 02/15/19 16:37 ALT 20 U/L (7-52) 02/15/19 16:37 Alkaline Phosphatase 822 U/L (34-104) H 02/15/19 16:37 C-Reactive Protein 92.41 mg/L (<8.01) H 02/15/19 16:37 Total Protein 5.4 g/dL (6.4-8.9) L 02/15/19 16:37 Albumin 2.7 g/dL (3.2-5.2) L 02/15/19 16:37 Globulin 2.7 g/dL (2-4) 02/15/19 16:37 Albumin/Globulin Ratio 1.0 (1-3) 02/15/19 16:37 Lipase 19 U/L (11.0-82.0) 02/15/19 16:37 Urine Color Yellow 02/18/19 12:50 Urine Appearance Cloudy 02/18/19 12:50 Urine pH 5.0 (5-9) 02/18/19 12:50 Ur Specific Thornton 1.017 (1.010-1.030) 02/18/19 12:50 Urine Protein 2+(100 mg/dl) (Negative) A 02/18/19 12:50 Urine Ketones Negative (Negative) 02/18/19 12:50 Urine Blood 2+ (Negative) A 02/18/19 12:50 Urine Nitrate Negative (Negative) 02/18/19 12:50 Urine Bilirubin Negative (Negative) 02/18/19 12:50 Urine Urobilinogen Negative (Negative) 02/18/19 12:50 Ur Leukocyte Esterase 1+ (Negative) A 02/18/19 12:50 Urine WBC (Auto) 3+(>20/hpf) (Absent) A 02/18/19 12:50 Urine RBC (Auto) 3+(>10/hpf) (Absent) A 02/18/19 12:50 Ur Squamous Epith Cells Present (Absent) A 02/18/19 12:50 Amorphous Crystals Present (Absent) A 02/18/19 12:50 Urine Bacteria Absent (Absent) 02/18/19 12:50 Granular Casts Present (Absent) A 02/16/19 04:06 Urine Glucose Negative (Negative) 02/18/19 12:50 Blood Type A Positive 02/16/19 05:29 Antibody Screen Negative 02/16/19 05:29 Crossmatch See Detail 02/16/19 05:29 - Objective Active Medications: Heparin Sodium (Porcine) (Heparin Flush Port (Ivad)) 5 ml FLUSH DAILY CARIN; Protocol Last Admin: 02/19/19 13:35 Dose: 5 ml Lorazepam (Ativan Inj*) 0.5 mg IV PUSH Q4H PRN PRN Reason: Anxiety/nausea/insomnia Metoprolol Succinate (Toprol Xl Tab*) 75 mg PO BID CARIN Last Admin: 02/19/19 09:13 Dose: Not Given Miscellaneous (Ativan Pyxis Phillips) 1 ea N/A .ATIVAN IV PHILLIPS PRN PRN Reason: PYXIS PHILLIPS Morphine Sulfate (Morphine Inj (Syringe))*) 2 mg IV Q2H PRN PRN Reason: PAIN - SEVERE Morphine Sulfate (Morphine Oral Concentrate*) 5 mg PO Q2H PRN PRN Reason: Pain - Severe or SOB Last Admin: 02/19/19 13:34 Dose: 5 mg Ondansetron HCl (Zofran Inj*) 4 mg IV Q4H PRN PRN Reason: NAUSEA/VOMITING Last Admin: 02/19/19 13:34 Dose: 4 mg Oxycodone HCl (Oxycontin(*)) 20 mg PO BID [facility] Last Admin: 02/19/19 09:13 Dose: Not Given Pantoprazole Sodium (Protonix Iv*) 40 mg IV 0900,2100 [facility] Last Admin: 02/19/19 09:12 Dose: 40 mg Polyethylene Glycol/Electrolytes (Miralax*) 17 gm PO DAILY PRN PRN Reason: CONSTIPATION Potassium Chloride (Klor Con Er Tab*) 20 meq PO QAM [facility] Last Admin: 02/19/19 09:12 Dose: Not Given Prochlorperazine Edisylate (Compazine Inj*) 10 mg IV Q6H PRN PRN Reason: NAUSEA/VOMITING Last Admin: 02/19/19 09:12 Dose: 10 mg Vital Signs: Vital Signs: Temp Pulse Resp BP Pulse Ox 98 F 105 18 125/69 98 02/19/19 07:30 02/19/19 07:30 02/19/19 13:34 02/19/19 07:30 02/19/19 07:30 Patient Weight: Weight 142.564 kg Intake and Output: Intake & Output 02/17/19 02/18/19 02/19/19 02/20/19 06:59 06:59 06:59 06:59 Intake Total 4576 1795 2071 0 Output Total 730 1620 780 400 Balance 3846 175 1291 -400 Weight 141.793 kg 140.614 kg 142.564 kg Intake: IV Fluids 3176 327 1081 NS (0.9%) 3176 327 1081 IVPB 248 NS (0.9%) 248 Oral 1400 1220 990 0 Output: Urine 730 1620 100 400 Long 600 Estimated Blood Loss 80 Other: Estimated Void Large Medium Estimated Stool Amount Medium # Voids 1 150 ADLs: Meal Record Start: 02/15/19 23: 58 Freq: DAILY@0900,1400,1800 Status: Active Protocol: Created 02/15/19 23:58 System (Rec: 02/15/19 23:58 System TELE-C11) Document 02/16/19 09:00 [id number] (Rec: 02/16/19 09:44 [id number] TELE-C05) Document 02/16/19 13:25 [id number] (Rec: 02/16/19 13:26 [id number] TELE-C05) Document 02/16/19 18:00 [id number] (Rec: 02/16/19 18:18 [id number] TELE-C07) Document 02/17/19 09:00 [id number] (Rec: 02/17/19 09:59 [id number] TELE-C05) Document 02/17/19 13:57 [id number] (Rec: 02/17/19 13:57 [id number] TELE-C05) Document 02/17/19 18:00 [id number] (Rec: 02/17/19 20:37 [id number] TELE-C13) Document 02/18/19 09:00 [id number] (Rec: 02/18/19 14:02 [id number] TELE-C08) Document 02/18/19 14:00 [id number] (Rec: 02/18/19 14:02 [id number] TELE-C08) Document 02/18/19 18:00 [id number] (Rec: 02/18/19 23:00 [id number] TELE-C13) Document 02/19/19 09:00 GCM6525 (Rec: 02/19/19 09:38 [id number] TELE-C08) Document 02/19/19 14:00 [id number] (Rec: 02/19/19 14:32 [id number] TELE-C08) Intake and Output Start: 02/15/19 16: 19 Freq: Status: Active Protocol: Created 02/15/19 16:19 System (Rec: 02/15/19 16:19 System [id number]-C12) Intake and Output Start: 02/15/19 23: 58 Freq: DAILY@0600,1400,2200 Status: Active Protocol: Created 02/15/19 23:58 System (Rec: 02/15/19 23:58 System TELE-C11) Document 02/16/19 05:45 [id number] (Rec: 02/16/19 05:46 [id number] TELE-C10) Document 02/16/19 13:16 [id number] (Rec: 02/16/19 13:16 BTS1068 TELE-C05) Document 02/16/19 14:00 [id number] (Rec: 02/16/19 15:08 [id number] TELE-C05) Document 02/16/19 18:18 [id number] (Rec: 02/16/19 18:18 [id number] TELE-C07) Document 02/16/19 21:00 [id number] (Rec: 02/16/19 23:20 TELE-C10) Document 02/16/19 21:38 WHV2011 (Rec: 02/16/19 21:39 WPS1632 TELE-C07) Document 02/17/19 06:00 [id number] (Rec: 02/17/19 06:25 [id number] TELE-C05) Document 02/17/19 13:57 [id number] (Rec: 02/17/19 13:58 [id number] TELE-C05) Document 02/17/19 14:00 [id number] (Rec: 02/17/19 16:43 TUW0916 HOSP-C11) Document 02/17/19 21:00 [id number] (Rec: 02/18/19 04:23 [id number] TELE-C10) Document 02/17/19 22:00 PVC4216 (Rec: 02/17/19 23:34 IER6368 TELE-C13) Document 02/18/19 02:00 BSZ9532 (Rec: 02/18/19 04:24 [id number] TELE-C10) Document 02/18/19 04:23 [id number] (Rec: 02/18/19 04:24 [id number] TELE-C10) Document 02/18/19 06:06 [id number] (Rec: 02/18/19 06:08 LMB9420 TELE-C05) Document 02/18/19 14:00 QAJ7025 (Rec: 02/18/19 14:03 [id number] TELE-C08) Document 02/18/19 20:30 TRK7517 (Rec: 02/19/19 02:24 [id number] TELE-C10) Document 02/19/19 05:11 FVL5436 (Rec: 02/19/19 05:14 OON7556 TELE-C01) Document 02/19/19 14:00 [id number] (Rec: 02/19/19 14:33 [id number] TELE-C08) Eyes: - - jaundice Ears/Nose/Mouth/Throat: NL Teeth, Lips, Gums Neck: NL Appearance and Movements; NL JVP Cardiovascular: NL Sounds; No Murmurs; No JVD Respiratory: Symmetrical Chest Expansion and Respiratory Effort Neurological: Alert and Oriented x 3 - Assessment Assessment: 73yo male with metastatic esophageal cancer presents with GI bleed - Plan Consult Plan (MU): Hospice Plan: Long discussion with pt, and son about care after leaving the hospital. Pt just elected comfort care this am and are interested in hospice. Hospice information/brochure given. They would like a referral to the residence if there is no bed they are interested in home hospice. Case management notified of referral request. has been caring for pt the last month but could use some help. List of home care agencies given and they already have a hospital bed. Family understands his prognosis to be days to weeks. Son will be in the area for the next 2 weeks. was worried about hydration but I explained food /fluids will always be offered but not forced and hospice doesn't use IV fluids. Pt is eligible for hospice with the diagnosis of metastatic esophageal cancer. KPS 30%, PPS 30% - Time On Unit Date of Evaluation: 02/19/19 Hospice Consult Time in: 14:00 Hospice Consult Time Out: 15:30 Hospice Consult Time Total: 90 > 50% of Time Spend In Counseling or Coordinating Care: Yes
[2019-02-19] MEDS: Morphine INJ* 2 MG/ML 1 ML SYRINGE (TWO MG - NEW SYRINGE VERSION) IV PRN (22:38)
[2019-02-20] MEDS: Morphine ORAL CONCENTRATE* 5 MG/0.25 ML ORAL.SYRIN PO PRN ×2 (00:08→12:13)
[2019-02-20] MEDS: Morphine INJ* 2 MG/ML 1 ML SYRINGE (TWO MG - NEW SYRINGE VERSION) IV PRN ×3 (01:29→11:13)
[2019-02-20] MEDS: Potassium Chlor TAB* 20 MEQ TAB.ER PO SCH (07:33)
[2019-02-20] MEDS: Metoprolol Succinate XL TAB* 25 MG PO SCH (07:33)
[2019-02-20] MEDS: Pantoprazole IV* 40 MG IV SCH (08:46)
[2019-02-20] MEDS: oxyCODONE SR TAB(*) 20 MG TAB.SR PO SCH (08:52)
[2019-02-20] MEDS: PROCHLORPERAZINE INJ 5 MG/ML 2 ML VIAL IV PRN (12:13)
--- NOTE | 2019-02-21 01:28 | DS ---
DISCHARGE SUMMARY: DATE OF ADMISSION: DATE OF DISCHARGE: 02/20/19 DISCHARGE DIAGNOSES: 1. Esophageal cancer. 2. gastrointestinal bleed. 3. Failure to thrive. HOSPITAL COURSE: A 73-year-old male with a history of metastatic esophageal cancer, progressive on f irst line chemotherapy, recently started salvage therapy with Taxol but received only 1 to 2 doses. He had progressive weakness and then presented with acute GI bleed. On presentation, he had elevated PT and PTT, thought to be secondary to Xarelto. Anticoagulation held. PT and PTT ultimately correc ford after activated factor 4 complex. Bleeding stopped, but he was becoming increasingly weak. reported several weeks of progressive weakness at home to the point where he could not get himself o ut of bed. Extensive discussion was held with the patient and his family. He has poor prognosis of disease and a deteriorating quality of life. We transitioned to comfort care and hospice. He is hayde ng discharged today to the hospice facility. Pain is controlled with Roxanol. He is eating minimal foods. DISCHARGE MEDICATIONS: 1. Morphine concentrate 10 mg q.2 hours p.r.n. 2. Tylenol 1000 mg b.i.d. p.r.n. 3. Toprol XL 75 mg p.o. b.i.d. 4. Omeprazole 40 mg p.o. daily. 5. OxyContin 20 mg p.o. b.i.d. 6. MiraLax 17 g p.o. daily p.r.n. 7. Compazine 5 mg p.o. q.6 p.r.n. DISPOSITION: To hospice residence. CONDITION: Fair. PENDING STUDIES: None. [id number]/[facility] #: [id number]
== END 2019-02-20 12:10 | disposition hospice, inpatient (51) | DRG 812 ==
LOC: ED 16:01 → MEDTELE 23:11
PROVIDERS: ADMIT Internal Medicine; ATTEND Internal Medicine Hematology & Oncology
PROC: 30233N1 Transfusion of Nonautologous Red Blood Cells into Peripheral Vein, Percutaneous Approach (ICD-10-PCS; principal; 2019-02-19)
DX: D62 Acute posthemorrhagic anemia (principal); C15.9 Malignant neoplasm of esophagus, unspecified; C79.9 Secondary malignant neoplasm of unspecified site; N17.9 Acute kidney failure, unspecified; K92.0 Hematemesis; Z68.42 Body mass index [BMI] 45.0-49.9, adult; Z66 Do not resuscitate; I25.10 Atherosclerotic heart disease of native coronary artery without angina pectoris; E78.5 Hyperlipidemia, unspecified; E11.9 Type 2 diabetes mellitus without complications; G47.33 Obstructive sleep apnea (adult) (pediatric); M10.9 Gout, unspecified; E86.0 Dehydration; Z51.5 Encounter for palliative care; G89.29 Other chronic pain; M54.9 Dorsalgia, unspecified; I50.9 Heart failure, unspecified; E78.00 Pure hypercholesterolemia, unspecified; I11.0 Hypertensive heart disease with heart failure; M17.11 Unilateral primary osteoarthritis, right knee; M19.012 Primary osteoarthritis, left shoulder; J45.909 Unspecified asthma, uncomplicated; K21.9 Gastro-esophageal reflux disease without esophagitis; R62.7 Adult failure to thrive; Z95.5 Presence of coronary angioplasty implant and graft; Z86.718 Personal history of other venous thrombosis and embolism; Z86.711 Personal history of pulmonary embolism; Z28.21 Immunization not carried out because of patient refusal; Z92.21 Personal history of antineoplastic chemotherapy; Z91.048 Other nonmedicinal substance allergy status; I25.2 Old myocardial infarction; Z79.899 Other long term (current) drug therapy
CPT/HCPCS: 36415; 71046; 80048; 80053; 81003; 81015; 82270; 83605; 83690; 85025; 85060; 85610; 85730; 86140; 86850; 86900; 86901; 86922; 87077; 87086; 87186; 96374; 96375; 99232; 99233; 99239; 99284; A9270-GY; C9132; J0780; J1170; J1642; J2270; J2405; P9040